=== PATIENT | male | born 1960 | race Caucasian/White ===

== ENCOUNTER 2016-09-01 07:55 | Emergency (ER) | payer MEDICARE, MEDICAID ==
[2016-09-01 08:08] VITALS: TEMP 97
[2016-09-01] MEDS ORDERED: HYDROmorphone HCL INJ 2 MG/ML VIAL IV ONE ×2 (08:14→09:17)
[2016-09-01] MEDS ORDERED: SODIUM CHLORIDE 0.9% 1000ML 1,000 ML IVS ONE (08:14)
[2016-09-01] MEDS ORDERED: ONDANSETRON INJ 4 MG/2 ML VIAL IV ONE (08:14)
--- NOTE | 2016-09-01 08:17 | ED.PDOC ---
History of Present Illness - General Chief Complaint: Abdominal Pain Stated Complaint: abdominal pain,vomiting Time Seen by Provider: 09/01/16 08:10 Information Source: patient, RN notes reviewed, Vital Signs reviewed, family Exam Limitations: no limitations - History of Present Illness Initial Comments: Patient started with sharp, stabbing abd pain 2 days ago. Last night started with nausea and vomiting. He has a history of pancreatitis and reports this feels the exact same. Abdominal Pain Onset Location: epigastric Pain Radiation: back Quality: severe, sharpness, steady, stabbing Timing/Duration: days - 2 Improving Factors: nothing Worsening Factors: eating Associated Symptoms: nausea/vomiting Review of Systems - Review of Systems Constitutional: Denies: chills, diaphoresis, fever, malaise, weakness EENTM: States: no symptoms reported Respiratory: States: no symptoms reported. Denies: short of breath Cardiology: States: no symptoms reported. Denies: chest pain, palpitations, syncope Gastrointestinal/Abdominal: States: see HPI, abdominal pain, nausea, vomiting. Denies: constipation, diarrhea Genitourinary: States: no symptoms reported Musculoskeletal: States: no symptoms reported Skin: States: no symptoms reported Neurological: States: no symptoms reported Endocrine: States: no symptoms reported Hematologic/Lymphatic: States: no symptoms reported Past Medical History (General) - Patient Medical History Hx Seizures: No Hx Stroke: No Hx Dementia: No Hx Asthma: No Hx of COPD: Yes Hx Cardiac Disorders: Yes Hx Congestive Heart Failure: Yes Hx Pacemaker: No Hx Hypertension: Yes Hx Thyroid Disease: No Hx Diabetes: Yes Hx Gastroesophageal Reflux: Yes Hx Renal Disease: No Hx Cancer: No Hx of HIV: No Hx Hepatitis C: Yes Hx MRSA: No MRSA Source:: Wound - Vaccination History Hx Tetanus, Diphtheria Vaccination: Yes Hx Influenza Vaccination: Yes Hx Pneumococcal Vaccination: Yes - Social History Hx Tobacco Use: Yes Hx Chewing Tobacco Use: No Hx Alcohol Use: No Hx Substance Use: No Hx Substance Use Treatment: No Hx Depression: No Hx Physical Abuse: No Hx Emotional Abuse: No Hx Suspected Abuse: No - Female History Patient : No Family Medical History - Family History Mother Family History: Unknown Living Status: Age at (years of age): 49 Hx Family Hypertension: Yes Hx Cardiac Disease: Yes Physical Exam - Physical Exam General Appearance: Alert, No apparent distress, Well Developed, Well Groomed, Well Nourished Eyes, Ears, Nose, Throat Exam: other - dry mucous membranes Neck: non-tender, full range of motion, supple, normal inspection Respiratory: chest non-tender, lungs clear, normal breath sounds, no respiratory distress, no accessory muscle use Cardiovascular/Chest: normal peripheral pulses, regular rate, rhythm, no edema, no gallop, no JVD, no murmur Peripheral Pulses: 2+ Gastrointestinal/Abdominal: abnormal bowel sounds - hyperactive, distended, guarding, tenderness Extremity: normal range of motion, non-tender, normal inspection, no pedal edema Neurologic: no motor/sensory deficits, alert, normal mood/affect, oriented x 3 Skin Exam: normal color, warm/dry Lymphatic: no adenopathy Progress - Progress Progress: 09/01/16 09:03 Patient reports pain has improved slightly. 7/10 Labs are fairly unremarkable. Lipase is minimally elevated @ 84. Will get CT scan of abd. 09/01/16 10:06 Patient is now sleeping. Discussed lab and CT results with . Explained that there is no signs of acute pancreatitis. No evidence of diverticulitis. There are some mildly dilated loops of sm bowel but no sign of obstruction. Will d/c home with anti-nausea medication. Recommended clear liquid diet for at least 24 hours. - Results/Orders Results/Orders: Laboratory Tests 09/01/16 08:11 WBC 12.4 H RBC 5.27 Hgb 16.1 Hct 48.2 MCV 91.4 MCH 30.5 MCHC 33.5 RDW 14.1 Plt Count 186 MPV 10.5 H Absolute Neuts (auto) 8.30 H Absolute Lymphs (auto) 2.50 Absolute Monos (auto) 1.20 H Absolute Eos (auto) 0.30 Absolute Basos (auto) 0.10 Neutrophils % 67.1 Lymphocytes % 19.7 L Monocytes % 9.7 H Eosinophils % 2.7 Basophils % 0.8 Sodium 133 L Potassium 3.9 Chloride 98 L Carbon Dioxide 26 Anion Gap 12.9 BUN 17 Creatinine 0.84 BUN/Creatinine Ratio 20.2 H Random Glucose 263 H Serum Osmolality 277.1 Calcium 9.3 Total Bilirubin 0.5 AST 28 ALT 28 Alkaline Phosphatase 89 Serum Total Protein 7.4 Albumin 4.2 Globulin 3.2 Albumin/Globulin Ratio 1.3 Amylase 81 Lipase 84 H - EKG/XRAY/CT CT Ordered: Yes - No acute findings on Abd/pelvis CT per radiology Departure - Departure Clinical Impression: Abdominal pain, Gastroenteritis Time of Disposition: 10:08 Disposition: Discharge to Home or Self Care Condition: Good Departure Forms: ED Discharge - Pt. Copy, Patient Portal Self Enrollment Instructions: DI for Abdominal Pain-Adult Diet: other - Clear liquid diet for at least 24 hours. Activity: increase activity as tolerated Referrals: David Alexis MD [Primary Care Provider] - 1-2 Days Prescriptions: Ondansetron [Zofran Odt] 4 mg PO Q4HR PRN #20 tab PRN Reason: Nausea/Vomiting Home Medications: Ambulatory Orders Amitriptyline HCl [Elavil] 100 mg PO BEDTIME 06/17/14 Citalopram Hydrobromide [Celexa] 40 mg PO QAM 06/17/14 Furosemide [Lasix Tab] 40 mg PO DAILY PRN 06/17/14 Lisinopril 40 mg PO BEDTIME 06/17/14 Metoprolol Succinate [Toprol Xl] 50 mg PO BEDTIME 06/17/14 Zolpidem Tartrate [Ambien] 10 mg PO BEDTIME 06/17/14 Insulin Glargine [Toujeo Solostar] 85 unit SC DAILY 11/04/15 Ondansetron [Zofran Odt] 4 mg PO Q6H PRN #5 tab 11/04/15 Omeprazole Magnesium [Prilosec Otc] 20 mg PO DAILY #20 tab 01/05/16 Insulin Lispro (Human) [Humalog] 30 unit SC .TIDAC 09/01/16 Ondansetron [Zofran Odt] 4 mg PO Q4HR PRN #20 tab 09/01/16 Pravastatin Sodium [Pravachol] 40 mg PO BEDTIME 09/01/16
--- NOTE | 2016-09-01 09:51 | CT ---
EXAM DESCRIPTION: CT ABDOMEN PELVIS WITH IV CONTRAST CLINICAL HISTORY: abd pain with hx of pancreatitis. Mid abdominal pain COMPARISON: May 20, 2016 TECHNIQUE: Post-contrast CT images of the abdomen and pelvis are obtained. CT scan done according to ALARA (As Low As Reasonably Achievable). FINDINGS: Visualized lung bases show no acute findings. The liver is enlarged. The right lobe measures 20.1 cm AP at the right midclavicular line. The liver is heterogeneous and decreased attenuation compared to the spleen without focal mass. The spleen, pancreas, adrenal glands, and gallbladder are unremarkable. No peripancreatic fluid collections or inflammatory changes are seen. Mild atherosclerotic disease is seen. Kidneys show no abnormal calcifications. No ureteral obstruction. Urinary bladder is unremarkable. Prostate calcifications are seen. Postsurgical changes from appendectomy are seen. There are some mildly dilated fluid filled loops of small bowel in the left central abdomen. No definite transition point is seen. No bowel wall thickening or surrounding inflammatory changes are identified. Scattered diverticuli of the mainly descending to sigmoid colon are seen without associated inflammatory changes or fluid collections. No pathologically enlarged abdominal or retroperitoneal lymphadenopathy is seen. Stimulator pack in the right gluteal region is seen with probable dorsal column stimulator entering the spinal canal in the lower thoracic region. Probable remote anterior wedge compression fracture deformity of T12 is seen. Interbody cages are noted at T12-L1 and L1-2 with evidence of posterior fusion from T12 through L2. IMPRESSION: No acute findings on CT of the abdomen and pelvis. Nonspecific mildly dilated loops of small bowel in the central abdomen are seen. This could represent mild ileus. No transition point to suggest obstruction is seen. Colon diverticulosis without CT evidence of diverticulitis. No CT evidence of acute pancreatitis. Hepatomegaly with evidence of diffuse fatty infiltration of the liver. Electronically signed by: Son Dobbs MD 09/01/2016 09:50
[2016-09-01 10:38] VITALS: BP 138/90; O2SAT 94
== END 2016-09-01 10:30 | disposition home or self-care (01) ==
LOC: ER 07:55
DX: K52.9 Noninfective gastroenteritis and colitis, unspecified (principal); I11.0 Hypertensive heart disease with heart failure; I50.9 Heart failure, unspecified; J44.9 Chronic obstructive pulmonary disease, unspecified; E11.9 Type 2 diabetes mellitus without complications; B19.20 Unspecified viral hepatitis C without hepatic coma; Z87.891 Personal history of nicotine dependence; Z79.4 Long term (current) use of insulin; Z79.899 Other long term (current) drug therapy
CPT/HCPCS: 74177; 80053; 82150; 83690; 85025; J1170; J2405; J7030

== ENCOUNTER → 2016-09-20 | Outpatient (CLI) | payer MEDICARE, MEDICAID ==
--- NOTE | 2016-09-20 09:44 | RAD ---
EXAM DESCRIPTION: XR SHOULDER 2 OR MORE VIEWS CLINICAL HISTORY: 56 y/o ,M, PAIN IN RIGHT SHOULDER COMPARISON: None. IMPRESSION: Likely calcific tendinitis of the rotator cuff. The glenohumeral joint and acromioclavicular joints appear unremarkable. No fracture noted. Electronically signed by: Hans Leger MD 09/20/2016 09:43
== END | disposition home or self-care (01) ==
LOC: RAD 08:05
PROVIDERS: ATTEND Orthopaedic Surgery
DX: M25.511 Pain in right shoulder (principal)

== ENCOUNTER → 2016-10-12 | Outpatient (CLI) | payer MEDICARE, MEDICAID ==
--- NOTE | 2016-10-12 11:50 | RAD ---
EXAM DESCRIPTION: Arthrogram Shoulder Right CLINICAL HISTORY: 56 years Male, UNSPECIFIED ROTATOR CUFF TEAR OR RUPTURE OF RT SHOULDER COMPARISON: None. FINDINGS: The risks, benefits and alternatives of a shoulder arthrogram were discussed with the patient including risks of pain, bleeding, infection and nondiagnostic result. The patient was given an opportunity to ask questions about the procedure, its risks, benefits and alternatives. He stated he understood these things and wished to proceed. The patient denied any known relevant drug allergies. A time-out was conducted prior to the procedure. The patient was placed in the supine position on the fluoroscopy table and a suitable access site anterior to the shoulder joint was identified and marked on the patient's skin surface. The skin was prepped and draped in the usual sterile manner. Approximately 4 cc of 1% lidocaine were used for local anesthesia. Using real-time fluoroscopic guidance, a 22 gauge needle was placed into the right shoulder joint space and approximately 15 cc of a solution containing dilute iodinated contrast were injected into the shoulder joint. The needle was withdrawn, and the shoulder was exercised. No rotator cuff tear or other fluoroscopically apparent right shoulder abnormality is seen. The patient was sent to the CT suite for completion of this exam. The patient tolerated the procedure well, and there were no postprocedure complications. IMPRESSION: Uncomplicated fluoroscopic guided right shoulder arthrogram. Please see separate report from the CT portion of this exam for more detailed discussion of findings. Electronically signed by: Darrion Peng MD 10/12/2016 11:50 AM NIGHT CLERK AUDITOR
--- NOTE | 2016-10-12 16:26 | CT ---
EXAM DESCRIPTION: Upper Extremity CLINICAL HISTORY: 56 years Male, ROTATOR CUFF TEAR OR RUPTURE OF RT SHOULDER COMPARISON: None. TECHNIQUE: CT arthrogram of the right shoulder was performed with intra-articular contrast FINDINGS: The right humeral head and neck are intact, and the glenohumeral joint is anatomically aligned. There are degenerative changes in the right AC joint including joint space narrowing and subcortical cyst formation with minimal undersurface spurring. Subcortical cyst formation in the superior-lateral aspect of the right humeral head is also likely of degenerative origin and suggests the possibility of impingement. No full or partial-thickness rotator cuff tear is identified. Contrast extends into the superior labrum posterior to midline consistent with labral tear extending only a short distance in the AP direction. No contrast is seen in the biceps tendon sheath, but the biceps tendon and bicipital labral anchor are at least partially intact. There is no axillary adenopathy. Mild emphysematous changes are noted in the right lung apex. IMPRESSION: SLAP type labral tear, but no rotator cuff tear. Moderate degenerative changes in the right AC joint with only minimal undersurface spurring. Emphysema. Electronically signed by: Darrion Peng MD 10/12/2016 4:25 PM [employer]ER [employer]
== END | disposition home or self-care (01) ==
LOC: RAD 07:49
PROVIDERS: ATTEND Orthopaedic Surgery
DX: M75.101 Unspecified rotator cuff tear or rupture of right shoulder, not specified as traumatic (principal)

== ENCOUNTER → 2016-10-17 | Outpatient (CLI) | payer MEDICARE, MEDICAID | LOC: SL 20:30 | PROVIDERS: ATTEND Family Medicine | DX: G47.33 Obstructive sleep apnea (adult) (pediatric) (principal); G47.10 Hypersomnia, unspecified ==

== ENCOUNTER 2016-11-10 09:15 | Inpatient (IN) | payer MEDICARE, MEDICAID ==
--- NOTE | 2016-11-10 09:20 | HP ---
SUPERVISING PHYSICIAN: David Alexis M.D. CHIEF COMPLAINT: Shortness of breath. HISTORY OF PRESENT ILLNESS: Mr. Alexander is a 56 year-old male patient of Dr. Alexis that was seen this past Monday in the clinic for acute exacerbation of chronic obstructive pulmonary disease. He was having symptoms to include a cough, worsening shortness of breath, wheezing and chest congestion , and was started on Levaquin and given a Prednisone tapering dose. He presented back to the clinic today for followup noting his symptoms had significantly worsened and he was now having significant difficulty with breathing, and a more productive cough. Given the fact that the patient has a significant history of chronic obstructive pulmonary disease having failed to respond to outpatient treatment plan for acute exacerbation of his chronic obstructive pulmonary disease, the patient is to be admitted today for further continued evaluation and treatment. He was admitted to the Medical/Surgical floor in stable condition. PAST MEDICAL HISTORY: 1. Chronic obstructive pulmonary disease. 2. Type 2 diabetes on insulin. 3. Fractures of T12, L1 and L2 after a fall. 4. Gastroesophageal reflux disease. 5. Hyperlipidemia. 6. Hypertension. 7. Diverticulosis. 8. History of recurrent pancreatitis in the past being hospitalized last in . 9. History of hepatitis C. 10. Chronic low back pain. 11. Peripheral neuropathies. 12. History of left shoulder infection in 2007. PAST SURGICAL HISTORY: 1. Hernia repair bilateral inguinal. 2. Spinal surgery of lumbar region. 3. Left orchiopexy. 4. Right rotator cuff repair. 5. Left shoulder incision and drainage of an abscess. CURRENT MEDICATIONS: 1. Insulin, Humalog 30 units subcue a.c. 2. Toujeo SoloStar 85 units daily. 3. Zofran 4 mg every 6 hours p.r.n. 4. Ambien 10 mg at bedtime. 5. Pravachol 40 mg at bedtime. 6. Prilosec 20 mg daily. 7. Toprol XL 50 mg at bedtime. 8. Lisinopril 40 mg at bedtime. 9. Lasix 40 mg p.r.n. 10. Celexa 40 mg every AM. 11. Elavil 100 mg at bedtime. ALLERGIES: MORPHINE. FAMILY HISTORY: Unremarkable. SOCIAL HISTORY: The patient is disabled and . He lives in [place], [place]. He is a current smoker and smokes about a pack to half pack a day. He denies any alcohol or recent illicit drug use. He does have a history of past amphetamines, barbiturates, cocaine and marijuana use. REVIEW OF SYSTEMS: CONSTITUTIONAL: Denies any weight change, fever, fatigue. HEENT: Denies sore throat, ear pain, sinus symptoms. RESPIRATORY: Positive for productive cough that is worsening since treatment started. He also has notable wheezing and shortness of breath as noted in the History of Present Illness. CARDIOVASCULAR: Denies any chest pain, tachycardia, palpitations or syncopal episodes. GASTROINTESTINAL: Denies any abdominal pains, rectal bleeding, constipation or diarrhea. GENITOURINARY: Denies any dysuria, hematuria, polyuria and is currently without any other significant symptoms. MUSCULOSKELETAL: No notable arthralgias or myalgias. Positive history for back pain and surgery. NEUROLOGIC: No reported headaches, dizziness or syncopal episodes. PHYSICAL EXAMINATION: VITAL SIGNS: Temperature on admission to the Medical/Surgical floor 97.9, pulse 90, blood pressure 130/84, respirations listed were 26, satting 93% on room air. Admission weight 100.6 kg. GENERAL: The patient appears to be in some mild distress with pursed lip breathing, tripod positioning with some notable respiratory accessory muscles utilized HEENT: Tympanic membranes are clear bilaterally. Oropharynx in pink and moist without any lesions. NECK: No jugular venous distention. CHEST: Lung sounds are diminished throughout with no obvious rhonchi or rales, just very faint wheezing towards the upper apices. CARDIOVASCULAR: Regular rate and rhythm without any appreciable murmurs, gallops, or rubs. ABDOMEN: Obese but soft, non-tender. Positive bowel sounds. EXTREMITIES: No clubbing, cyanosis or edema. NEUROLOGIC: He is alert and oriented times three. Cranial nerves II-XII are grossly intact. Facial features are symmetrical. Extraocular movements are within normal limits. There is no notable nystagmus. There are no focal or lateralizing neuromotor deficits noted. LABORATORY: White count on admission was 12.7, hemoglobin 15.9, hematocrit 47.8. Differential shows to be without a left shift. Coagulation studies show normal PT and PTT. Blood gas analysis showed pH of 7.45 with bicarb 25.2, PO2 was 64, PCO2 was 37. Satting 94% on room air. Carboxyhemoglobin was 4.6, oxyhemoglobin percentage was 90.5. Chemistries showed sodium 131 but corrected for glucose of 409 to 135, potassium 4.3, BUN 24, creatinine 0.96. Magnesium 1.7. Liver functions all showed to be within normal limits. Troponin was less than 0.02. CPK was normal at 107. Urinalysis showed 500 glucose, trace of blood, otherwise all within normal limits in regards to other indices tested. MICROBIOLOGY: Sputum culture is pending. MRSA surveillance culture is pending. Anaerobic blood cultures times 2 are pending. RADIOLOGY: Chest x-ray performed at [facility] prior to admission showed no obvious consolidative processes, just COPD changes pending radiology interpretation. ASSESSMENT: 1. Acute exacerbation of chronic obstructive pulmonary disease having failed to respond to outpatient treatment plan that included corticosteroids and Levaquin. 2. Moderate hypoxemia as noted on ABG with PaO2 of 64. 3. History of diverticular disease, stable. 4. Diabetes mellitus type 2 poorly controlled secondary to previous corticosteroid administration. 5. Hypertension. 6. Chronic hepatitis C. PLAN: The patient is admitted to the Medical/Surgical floor for further treatment and evaluation with concerns for acute exacerbation of his chronic obstructive pulmonary disease having failed to respond to outpatient treatment plan. Will go ahead and start the patient on BiPAP given that he does have significant hypoxemia and some difficulty with respiratory effort. He will be started on bronchodilator treatments to include DuoNeb q.i.d. as well as p.r.n. and bronchial hygiene. Will also support the patient with BiPAP as needed as tolerated and provide Xanax as needed for any anxiety. Will continue with Levaquin parenterally and await a sputum culture. He will be started on Solu- Medrol initially 125 mg to be continued every 8 hours at 60 mg times 3 with anticipation of tapering to a p.o. Prednisone. Anticipate length of stay to be 2 to 3 days. Until then, will continue to monitor the patient closely and treat appropriately. #[id number] [facility]
[2016-11-10] MEDS ORDERED: SODIUM CHLORIDE 0.9% (FLUSH) 10 ML SYG IV PRN (09:33)
[2016-11-10] MEDS ORDERED: IPRATROPIUM/ALBUTEROL 3 ML VIAL NEB ONE (09:41)
[2016-11-10] MEDS ORDERED: DEXTROSE 50% 25 GM/50 ML SYG IV PRN (09:44)
[2016-11-10] MEDS ORDERED: GLUCAGON INJ 1 MG VIAL SUBCU PRN (09:44)
[2016-11-10] MEDS ORDERED: ALBUTEROL SULFATE 2.5 MG/3 ML VIAL NEB PRN (09:44)
[2016-11-10] MEDS: IPRATROPIUM/ALBUTEROL 3 ML VIAL INH SCH ×4 (09:50→20:40)
[2016-11-10] MEDS ORDERED: methylPREDNISolone SODIUM SUC 125 MG/2 ML VIAL IV ONE (09:51)
[2016-11-10] MEDS ORDERED: PROMETHAZINE W/CODEINE SYR 5 ML UD PO PRN (09:52)
[2016-11-10] MEDS ORDERED: ACETAMINOPHEN 325 MG TAB PO PRN (09:56)
[2016-11-10] MEDS: ALPRAZolam 0.25 MG TAB PO PRN ×2 (10:34→17:10)
[2016-11-10] MEDS: IV SET AND CAP CHANGE INJ INJ SCH (10:35)
[2016-11-10] MEDS: guaiFENesin ER TAB 600 MG TAB PO SCH ×2 (10:36→20:45)
[2016-11-10] MEDS ORDERED: levoFLOXacin 500MG IV 100 ML IVPB ONE (10:41)
[2016-11-10] MEDS: levoFLOXacin 500MG IV 500 MG in PREMIX BAG 1 BAG IVPB SCH (10:45)
[2016-11-10] MEDS ORDERED: MAGNESIUM SULFATE PREMIX 2GM 2 GM in PREMIX BAG 1 BAG IVPB ONE (10:46)
[2016-11-10] MEDS: INSULIN LISPRO 100 UNITS/ML PEN SUBCU SCH ×3 (10:53→20:59)
[2016-11-10] MEDS ORDERED: SODIUM CHLORIDE 0.9% 1000ML 1,000 ML IVS ONE (10:54)
[2016-11-10] MEDS ORDERED: INSULIN LISPRO 100 UNITS/ML PEN SUBCU ONE (11:00)
[2016-11-10] MEDS ORDERED: INSULIN LISPRO 100 UNITS/ML PEN SUBCU SCH (11:30)
[2016-11-10] MEDS ORDERED: MAGNESIUM SULFATE PREMIX 2GM 50 ML IVPB ONE (12:04)
[2016-11-10] MEDS ORDERED: SODIUM CHLORIDE 0.9% 1000ML 1,000 ML ONE (12:55)
[2016-11-10] MEDS: KCL 20MEQ/0.45% NS 1,000 ML IVS PRN ×2 (14:24→20:49)
--- NOTE | 2016-11-10 19:35 | PCM.CORE ---
Physician DVT/VTE - Nurse DVT Assessment & Total Each Risk Factor Represents 1 Point: Age 41-60, Medical PT at Bed Rest, Hx of smoking past year Each Risk Factor is 1 Point: Obesity (BMI >25), Serious Lung disease (pnemonia < 1month, COPD, emphysema,etc) DVT Assessment Score: 5 - 5 or more Very High Risk Treatments: Early Ambulation *, Sequential Compression Device Pharmacological: Enoxaparin 40mg SQ Daily
[2016-11-10] MEDS ORDERED: PANTOPRAZOLE SODIUM IV 40 MG VIAL IV SCH (20:00)
[2016-11-10] MEDS ORDERED: ENOXAPARIN SODIUM 40 MG/0.4 ML SYG SUBCU SCH (20:00)
[2016-11-10] MEDS ORDERED: SODIUM CHLORIDE 0.9% 10 ML VIAL ONE (20:08)
[2016-11-10] MEDS: LISINOPRIL 10 MG TAB PO SCH (20:44)
[2016-11-10] MEDS: AMITRIPTYLINE HCL 25 MG TAB PO SCH (20:44)
[2016-11-10] MEDS: PRAVASTATIN SODIUM 20 MG TAB PO SCH (20:45)
[2016-11-10] MEDS: METOPROLOL SUCCINATE XL 50 MG TAB PO SCH (20:45)
[2016-11-10] MEDS: methylPREDNISolone SODIUM SUC 125 MG/2 ML VIAL IV SCH (20:45)
[2016-11-10] MEDS: ZOLPIDEM TARTRATE 10 MG TAB PO SCH (20:46)
[2016-11-11] MEDS: KCL 20MEQ/0.45% NS 1,000 ML IVS PRN (06:28)
--- NOTE | 2016-11-11 06:49 | RAD ---
Clinical History : Pneumonia , MAIN Exam : PA and lateral views of the chest 11/11/2016 7:00 AM CDT Comparisons : Portable AP view of the chest January 02, 2016 Findings : The lungs are clear without focal consolidation or pleural effusion. The heart is normal in size. The mediastinal contours are normal in appearance. The thoracic spine is age appropriate. The shoulders are unremarkable. Limited evaluation of the upper abdomen demonstrates no gross abnormalities. Impression: No acute cardiopulmonary disease (stable appearing chest). Electronically signed by: Temo Garcia MD 11/11/2016 6:48 AM CDT
[2016-11-11] MEDS ORDERED: CITALOPRAM HBR 20 MG TAB ONE (07:42)
[2016-11-11] MEDS ORDERED: levoFLOXacin 500MG IV 100 ML IVPB ONE (07:42)
[2016-11-11] MEDS: IPRATROPIUM/ALBUTEROL 3 ML VIAL INH SCH ×4 (08:07→20:46)
[2016-11-11] MEDS: INSULIN LISPRO 100 UNITS/ML PEN SUBCU SCH ×7 (08:27→22:00)
[2016-11-11] MEDS: CITALOPRAM HBR 20 MG TAB PO SCH (08:32)
[2016-11-11] MEDS: guaiFENesin ER TAB 600 MG TAB PO SCH ×2 (08:32→22:06)
[2016-11-11] MEDS: methylPREDNISolone SODIUM SUC 125 MG/2 ML VIAL IV SCH (08:34)
[2016-11-11] MEDS: ALPRAZolam 0.25 MG TAB PO PRN ×3 (08:48→22:06)
[2016-11-11] MEDS: INSULIN GLARGINE SC SCH (09:50)
[2016-11-11] MEDS: levoFLOXacin 500MG IV 500 MG in PREMIX BAG 1 BAG IVPB SCH (10:04)
[2016-11-11] MEDS: SODIUM CHLORIDE 0.9% (FLUSH) 10 ML SYG IV SCH ×2 (10:05→22:08)
[2016-11-11] MEDS: BIFIDOBACTERIUM INFANTIS 4 MG CAP PO SCH (14:07)
[2016-11-11] MEDS: HYDROcodone 5MG/APAP 325MG 1 EA TAB PO PRN ×2 (14:13→22:07)
[2016-11-11] MEDS ORDERED: SODIUM CHLORIDE 0.9% 10 ML VIAL ONE (19:43)
[2016-11-11] MEDS ORDERED: PANTOPRAZOLE SODIUM IV 40 MG VIAL ONE (19:43)
--- NOTE | 2016-11-11 19:49 | PN ---
DATE: 11/11/16 SUPERVISING PHYSICIAN: Beau Weston M.D. SUBJECTIVE: The patient is still utilizing BiPAP periodically throughout the day. He remains afebrile. He says his breathing efforts are much better than previous days. He continues with a cough and has had some diarrhea since yesterday. OBJECTIVE: VITAL SIGNS: T max 98.1, pulse 91, blood pressure 127/80, respirations 20, O2 sat 96% on nasal cannula at 2 liters. I's and O's show a negative balance of 611 with 3564 in, 4175 out. He has had 5 bowel movements. Weight 102.1 kg. GENERAL: The patient is in no acute distress. He is utilizing BiPAP. CHEST: Lung sounds are much better aeration today compared to previous. There is no wheezing. Still remains somewhat diminished towards the bases. HEART: Regular rate and rhythm. ABDOMEN: Obese but soft, non-tender. Positive bowel sounds. EXTREMITIES: No clubbing, cyanosis or edema. NEUROLOGIC : He is alert and oriented times three. LABORATORY: White count 14.9, hemoglobin 16.0, hematocrit 49.0, platelet count 204,000. Differential today shows a left shift. Chemistries today show sodium 132, potassium 5.2, BUN 20, creatinine 0.79. Glucoses have been elevated since he has been started on corticosteroids with a maximum of 431 down to 285, calcium 9.1, magnesium 2.1. Blood cultures remain negative at 24 hours. MRSA surveillance culture shows no growth in 24 hours. Sputum culture showed normal jenniffer at 24 hours. He does have a stool culture and Clostridium Difficile toxin on stool is pending. RADIOLOGY: Chest x-ray today per radiology interpretation showed no acute cardiopulmonary disease, stable-appearing chest. ASSESSMENT: 1. Acute exacerbation of chronic obstructive pulmonary disease having failed to respond to outpatient treatment plan that included corticosteroids and Levaquin. 2. Moderate hypoxemia as noted on ABG with PaO2 of 64 requiring BiPAP. 3. History of diverticular disease, stable. 4. Diabetes mellitus type 2 poorly controlled secondary to previous corticosteroid administration and continued Solu-Medrol through initial admission. 5. Hypertension. 6. Chronic hepatitis C. PLAN: The patient is improving and requiring BiPAP less, and he feels much better than previous to admission. He continues with aggressive pulmonary hygiene and DuoNeb treatments. Will continue to work to get the patient off BiPAP and plan to repeat her laboratory studies in the morning to include a CBC and BMP as well as an ABG. Will await final sputum cultures and continue with parenteral antibiotics to include Levaquin. He did get a loading dose of corticosteroids with Solu-Medrol on admission. He no longer is having wheezing. I have tapered off his dose and will plan to hold his PM dose today, and monitor closely. His glucoses have been elevated secondary to the steroids and will closely monitor this with his sliding scale along with insulin a.c. and h.s. Possible discharge tomorrow or Monday. Until then, will continue to monitor the patient closely and treat appropriately. #[id number] [facility]
[2016-11-11] MEDS: PANTOPRAZOLE SODIUM IV 40 MG VIAL IV SCH (22:03)
[2016-11-11] MEDS: METOPROLOL SUCCINATE XL 50 MG TAB PO SCH (22:06)
[2016-11-11] MEDS: LISINOPRIL 10 MG TAB PO SCH (22:06)
[2016-11-11] MEDS: PRAVASTATIN SODIUM 20 MG TAB PO SCH (22:06)
[2016-11-11] MEDS: ZOLPIDEM TARTRATE 10 MG TAB PO SCH (22:06)
[2016-11-11] MEDS: AMITRIPTYLINE HCL 25 MG TAB PO SCH (22:06)
[2016-11-11] MEDS: ENOXAPARIN SODIUM 40 MG/0.4 ML SYG SUBCU SCH (22:09)
[2016-11-12] MEDS: ONDANSETRON INJ 4 MG/2 ML VIAL IV PRN ×2 (02:54→09:39)
[2016-11-12] MEDS: ALPRAZolam 0.25 MG TAB PO PRN ×4 (05:27→23:51)
[2016-11-12] MEDS: INSULIN LISPRO 100 UNITS/ML PEN SUBCU SCH ×6 (07:48→21:30)
[2016-11-12] MEDS: IPRATROPIUM/ALBUTEROL 3 ML VIAL INH SCH ×4 (08:27→20:35)
[2016-11-12] MEDS ORDERED: levoFLOXacin 500MG IV 100 ML IVPB ONE (08:49)
[2016-11-12] MEDS: INSULIN GLARGINE SC SCH (09:31)
[2016-11-12] MEDS: levoFLOXacin 500MG IV 500 MG in PREMIX BAG 1 BAG IVPB SCH (09:32)
[2016-11-12] MEDS: guaiFENesin ER TAB 600 MG TAB PO SCH ×2 (09:32→21:30)
[2016-11-12] MEDS: SODIUM CHLORIDE 0.9% (FLUSH) 10 ML SYG IV SCH ×2 (09:32→21:31)
[2016-11-12] MEDS: CITALOPRAM HBR 20 MG TAB PO SCH (09:32)
[2016-11-12] MEDS: BIFIDOBACTERIUM INFANTIS 4 MG CAP PO SCH (09:35)
--- NOTE | 2016-11-12 14:51 | CT ---
Procedure: CT ABDOMEN PELVIS WITH IV CONTRAST Exam Date: 11/12/2016 Ordering Provider: Yakov Arevalo Clinical Indication: LLQ pain with persistent diarrhea Comparison: 09/01/2016 TECHNIQUE: 5 mm images were taken through the abdomen and pelvis after the administration of nonionic intravenous contrast material. Oral contrast was not administered. Coronal and sagittal reformatted images were generated. This exam was performed according to our departmental dose optimization program which includes use of automated exposure control, adjustment of the mA and/or kV according to patient size and/or use of iterative reconstruction technique. FINDINGS: Lower chest: Scarring in the dependent lower lobes. Abdomen: Liver and biliary system: No liver lesions. No biliary ductal dilatation. No calcified gallstones. Spleen: Unremarkable Pancreas: Unremarkable Adrenal glands: Unremarkable Kidneys: No suspicious lesions or hydronephrosis in either kidney. Lymph nodes: No lymphadenopathy by CT size criteria. Retroperitoneum, abdominal wall, peritoneal cavity: No ascites. No free intraperitoneal air. Generator pack in the posterior right superficial soft tissues. Vessels: No abdominal aortic aneurysm. Pelvis: Lymph nodes: No lymphadenopathy Bowel: No bowel obstruction. Colonic diverticulosis without evidence of diverticulitis. Prior appendectomy. No bowel wall thickening. Bladder: Significantly distended, otherwise unremarkable. Pelvic organs: Prostate calcifications. Bones: Nonacute. Remote anterior wedge compression deformity of the T12 vertebral body. Interbody cages at T12-L1 and L1-L2. IMPRESSION: 1. No acute abnormalities in the abdomen or pelvis. 2. Urinary bladder is significantly distended, otherwise unremarkable. 3. Colonic diverticulosis without evidence of diverticulitis. Electronically signed by: Chaim Saini MD 11/12/2016 2:50 PM CDT
--- NOTE | 2016-11-12 15:31 | PN ---
DATE: 11/12/16 SUPERVISING PHYSICIAN: Beau Weston M.D. SUBJECTIVE: The patient is doing better in regards to his chronic obstructive pulmonary disease exacerbation and is not using BiPAP as much. He did have a rough night having some episodes of nausea, but never had any actual emesis, and also noted that he is having some significant amount of diarrhea along with some left lower quadrant abdominal discomfort. He does remain afebrile. OBJECTIVE: VITAL SIGNS: T max 97.9, pulse 91, blood pressure 132/82, respirations 20, O2 sat 93% on room air. I's and O's show a positive balance of 440 with 1940 in, 1500 out. He has had well over 5 bowel movements. CHEST: Lungs are much better aerated today, just remain slightly diminished towards the bases. There is no wheezing noted or rhonchi. HEART: Regular rate and rhythm. ABDOMEN: Obese, soft with some mild tenderness noted to the left mid to lower quadrant with no rebound tenderness. Bowel sounds are active. EXTREMITIES: No clubbing, cyanosis or edema. NEUROLOGIC: He is alert and oriented times three. LABORATORY: White count continues to increase possibly secondary to corticosteroid administration in the past several days. Hemoglobin and hematocrit show 15.1 and 46.2, platelet count remains within normal limits at 189,000. Differential today does show improvement. Chemistries show normal electrolytes with potassium 4.0, BUN 19, creatinine 0.74. Blood sugars have improved ranging from 116 to 297, calcium 8.9. Liver function this morning showed normal as well as normal amylase and lipase. MICROBIOLOGY: Stool culture showed no enteric pathogens at 24 hours. He did have 1 Clostridium Difficile A and B that was negative. Sputum culture showed normal jenniffer at 48 hours. MRSA surveillance culture showed no growth at 48 hours and 2 blood cultures remain negative at 48 hours. RADIOLOGY: CT of the abdomen with contrast is pending. ASSESSMENT: 1. Acute exacerbation of chronic obstructive pulmonary disease having failed to respond to outpatient treatment plan that included corticosteroids and Levaquin. 2. Moderate hypoxemia as noted on ABG at admission with PO2 of 64 requiring BiPAP showing improvement now able to maintain O2 saturations on nasal cannula. 3. History of diverticular disease with the patient having multiple episodes of diarrhea since starting antibiotics and complaining of some lower left quadrant pain, currently remains afebrile with CT of the abdomen pending. Possibly complications from underlying Clostridium Difficile infection as he has had some nausea versus acute diverticulitis. 4. Diabetes mellitus type 2 poorly controlled having been previously on corticosteroid administration with Solu-Medrol on admission now showing improvement with aggressive sliding scale and short-acting insulin coverage. 5. Hypertension. 6. Chronic hepatitis C. 7. Leukocytosis showing increasing daily with concern for possible Clostridium Difficile infection versus diverticulitis versus demarginalization from previous corticosteroid administration. PLAN: The patient, in regards to the COPD exacerbation, is showing improvement daily, although his white count remains elevated which is possibly secondary to his previous administration of corticosteroids, however cannot completely rule out the possibility of a flare-up of diverticulitis or Clostridium Difficile infection. Will await further Clostridium Difficile studies as the first one was negative. As well, get a CT of the abdomen and pelvis with contrast. As he is nauseated, will make him NPO until we have results from the CT scan and provide Zofran for nausea as needed. He will remain off steroids as he is showing improvement. Will continue with antibiotic coverage to include Levaquin. His blood sugars are better controlled within the last 24 hours as he remains on short-acting as well as long-acting Toujeo. Will continue to monitor the patient closely and hope to be able to discharge the patient tomorrow pending further studies in regards to the ongoing diarrhea. Until then , will monitor the patient closely and treat appropriately. #[id number] [facility]
[2016-11-12] MEDS: ENOXAPARIN SODIUM 40 MG/0.4 ML SYG SUBCU SCH (21:29)
[2016-11-12] MEDS: METOPROLOL SUCCINATE XL 50 MG TAB PO SCH (21:29)
[2016-11-12] MEDS: PRAVASTATIN SODIUM 20 MG TAB PO SCH (21:29)
[2016-11-12] MEDS: LISINOPRIL 10 MG TAB PO SCH (21:30)
[2016-11-12] MEDS: AMITRIPTYLINE HCL 25 MG TAB PO SCH (21:30)
[2016-11-12] MEDS: PANTOPRAZOLE SODIUM IV 40 MG VIAL IV SCH (21:30)
[2016-11-12] MEDS: ZOLPIDEM TARTRATE 10 MG TAB PO SCH (21:30)
[2016-11-13] MEDS ORDERED: levoFLOXacin 500MG IV 100 ML IVPB ONE (07:14)
[2016-11-13] MEDS: INSULIN LISPRO 100 UNITS/ML PEN SUBCU SCH ×4 (07:20→21:10)
--- NOTE | 2016-11-13 07:52 | RAD ---
Clinical History : COPD , MAIN Exam : PA and lateral views of the chest 11/13/2016 7:00 AM CDT Comparisons : PA and lateral views of the chest November 11, 2016 Findings : There is mild diffuse peribronchial thickening throughout the lungs bilaterally. There is no focal consolidation or pleural effusion. The heart is normal in size. The mediastinal contours are normal in appearance. The thoracic spine is age appropriate. The shoulders are unremarkable. Limited evaluation of the upper abdomen demonstrates no gross abnormalities. Impression: Increasing mild peribronchial thickening, may represent viral or atypical infectious process. Electronically signed by: Temo Garcia MD 11/13/2016 7:51 AM CDT
[2016-11-13] MEDS: INSULIN GLARGINE SC SCH (08:34)
[2016-11-13] MEDS: BIFIDOBACTERIUM INFANTIS 4 MG CAP PO SCH (08:34)
[2016-11-13] MEDS: CITALOPRAM HBR 20 MG TAB PO SCH (08:34)
[2016-11-13] MEDS: guaiFENesin ER TAB 600 MG TAB PO SCH ×2 (08:34→21:10)
[2016-11-13] MEDS: IPRATROPIUM/ALBUTEROL 3 ML VIAL INH SCH ×4 (08:35→20:30)
[2016-11-13] MEDS: ALPRAZolam 0.25 MG TAB PO PRN ×3 (08:37→21:09)
[2016-11-13] MEDS: SODIUM CHLORIDE 0.9% (FLUSH) 10 ML SYG IV SCH ×2 (08:39→21:09)
[2016-11-13] MEDS: levoFLOXacin 500MG IV 500 MG in PREMIX BAG 1 BAG IVPB SCH (09:43)
[2016-11-13] MEDS: HYDROcodone 5MG/APAP 325MG 1 EA TAB PO PRN ×2 (12:41→17:45)
[2016-11-13] MEDS: PANTOPRAZOLE SODIUM IV 40 MG VIAL IV SCH (21:08)
[2016-11-13] MEDS: AMITRIPTYLINE HCL 25 MG TAB PO SCH (21:10)
[2016-11-13] MEDS: ZOLPIDEM TARTRATE 10 MG TAB PO SCH (21:10)
[2016-11-13] MEDS: PRAVASTATIN SODIUM 20 MG TAB PO SCH (21:10)
[2016-11-13] MEDS: LISINOPRIL 10 MG TAB PO SCH (21:10)
[2016-11-13] MEDS: METOPROLOL SUCCINATE XL 50 MG TAB PO SCH (21:10)
[2016-11-13] MEDS: ENOXAPARIN SODIUM 40 MG/0.4 ML SYG SUBCU SCH (21:12)
[2016-11-14] MEDS: HYDROcodone 5MG/APAP 325MG 1 EA TAB PO PRN ×2 (06:10→10:35)
[2016-11-14] MEDS: ALPRAZolam 0.25 MG TAB PO PRN ×2 (06:10→12:39)
[2016-11-14 08:08] VITALS: BP 110/74; TEMP 98.4
--- NOTE | 2016-11-14 08:28 | PN ---
DATE: 11-13-16 SUPERVISING PHYSICIAN: Beau Weston M.D. SUBJECTIVE: The patient notes today he is no longer having any nausea or abdominal pain and notes his diarrhea has also stopped. He has been able to stay off the BiPAP and is feeling better. He remains afebrile. He is starting to have a much more productive cough.. OBJECTIVE: VITAL SIGNS: T max 98.4, pulse 88, blood pressure 120/78, respirations 20, O2 sat 94% on room air. I's and O's show a positive balance of 440 with 1940 in, 1500 out. Weight 100.2 kg. GENERAL: The patient is actually resting, appears to be in no acute distress. He is alert. CHEST: Lungs remain diminished towards the bases with some faint rhonchi heard bilaterally. No rales or wheezing is noted. HEART: Regular rate and rhythm. ABDOMEN: Obese, soft, non-tender. Bowel sounds are positive. EXTREMITIES: No clubbing, cyanosis or edema. NEUROLOGIC: He is alert and oriented times three. LABORATORY: Normalizing white count at 11.6 compand to 16.8 previous day with hemoglobin 15.0, hematocrit 46.2 which is stable with platelet count 176,000, differential now shows to be normalizing. Chemistries show sodium 145, otherwise potassium and other electrolytes within normal limits with potassium 4.1. Glucoses improved and stabilized from previous days showing 116 at 2:15 with calcium 8.7. MICROBIOLOGY: Stool culture showed no enteric pathogens at 48 hours. Clostridium Difficile x1 was negative for A and B. Sputum culture showed no growth at 48 hours. MRSA surveillance culture completed at 72 hours showed no growth and blood cultures remained negative at 3 days. . RADIOLOGY: Chest x-ray 2 view per radiology interpretation today shows increase in mild peribronchial thickening which could represent viral or atypical infectious process. CT of the abdomen with contrast per radiology interpretation showed no acute abnormalities in the pelvis and abdomen. Bladder was noted to be significantly distended, otherwise was unremarkable. There was noted colonic diverticulosis without any evidence of diverticulitis. ASSESSMENT: 1. Acute exacerbation of chronic obstructive pulmonary disease having failed to respond to outpatient treatment therapy with both corticosteroids and antibiotics to include Levaquin. 2. Moderate hypoxemia as noted on ABG at admission with PO2 of 64 requiring BiPAP showing improvement with patient being able to maintain O2 saturations on nasal cannula now. 3. History of diverticular disease with the patient having multiple episodes of diarrhea since admission with CT of the abdomen showing no acute diverticulitis with patient now reported diarrhea has resolved. Patient was started on a probiotic. 4. Diabetes mellitus type 2 previously poorly controlled secondary to corticosteroid administration with Solu-Medrol as well as prednisone prior to admission improving with a sliding and continued short-acting insulin. 5. Hypertension. 6. Chronic hepatitis C. 7. Leukocytosis improving felt to be possibly related to underlying infection with some demarginalization from previous corticosteroid administration with C Diff studies and stool cultures showing to be without any significant findings. PLAN: Patient will continue with current plan of care to include Levaquin. Will add CPT to his bronchial hygiene to assist with his clearance of mucous and attain an ambulatory study later today to evaluate his oxygenation status. He is taking adequate p.o. fluids, remains saline locked and is on DVT prophylaxis. Patient is showing improvement and additional 24 hours of antibiotics parenterally is warranted as the patient continues to wear BiPAP for short term at night. He does warrant a sleep study in the future to further rule out any complications from sleep apnea which can be done in an outpatient setting through Dr. Alexis office.. Will anticipate discharge tomorrow and plan to repeat CBC and BNP in the morning. Until then, will continue to monitor the patient closely and treat appropriately. #[id number] [facility]
[2016-11-14] MEDS: IPRATROPIUM/ALBUTEROL 3 ML VIAL INH SCH ×2 (08:35→12:00)
[2016-11-14] MEDS: INSULIN GLARGINE SC SCH (08:59)
[2016-11-14] MEDS: INSULIN LISPRO 100 UNITS/ML PEN SUBCU SCH ×4 (08:59→11:56)
[2016-11-14] MEDS: guaiFENesin ER TAB 600 MG TAB PO SCH (09:00)
[2016-11-14] MEDS: BIFIDOBACTERIUM INFANTIS 4 MG CAP PO SCH (09:00)
[2016-11-14] MEDS: CITALOPRAM HBR 20 MG TAB PO SCH (09:09)
[2016-11-14] MEDS: SODIUM CHLORIDE 0.9% (FLUSH) 10 ML SYG IV SCH (09:12)
[2016-11-14] MEDS ORDERED: levoFLOXacin 500MG IV 100 ML IVPB ONE (10:29)
[2016-11-14] MEDS: levoFLOXacin 500MG IV 500 MG in PREMIX BAG 1 BAG IVPB SCH (10:34)
[2016-11-14] MEDS: IV SET AND CAP CHANGE INJ INJ SCH (11:54)
[2016-11-15 07:48] VITALS: O2SAT 97
--- NOTE | 2016-11-15 09:41 | DS ---
SUPERVISING PHYSICIAN: David Alexis MD DISCHARGE DIAGNOSIS: 1. Acute exacerbation of chronic obstructive pulmonary disease having failed to respond to outpatient treatment plan that included corticosteroids and antibiotics that included Levaquin with x-ray indicating possible underlying pneumonia bilaterally with the patient showing good improvement after BiPAP and continued antibiotics. 2. Moderate hypoxemia as noted on ABG at time of admission with PaO2 of 64, requiring initial BiPAP support for maintaining O2 saturations with the patient being able to titrate off BiPAP to room air prior to discharge. 3. History of diverticular disease with the patient having several episodes of diarrhea during admission with CT of the abdomen showing no acute diverticulitis with diarrhea resolving prior to discharge, felt to be likely secondary to antibiotic administration. 4. Diabetes mellitus, type 2, previously poorly controlled secondary to corticosteroid administration with Solu-Medrol and previous prednisone tapering dose, requiring sliding scale and short-acting insulin, showing improvement and to be stable at time of discharge. 5. Hypertension. 6. Chronic hepatitis C. 7. Leukocytosis secondary to underlying infection, likely community acquired pneumonia with some component secondary to demargination from corticosteroid administration with no obvious infectious sources noted on Clostridium difficile studies negative as well as stool cultures with no other significant findings with the patient normalizing white count prior to discharge. HISTORY OF PRESENT ILLNESS: Mr. Alexander is a 56 year-old male patient of Dr. Alexis that was seen this past Monday prior to admission in the clinic for acute exacerbation of chronic obstructive pulmonary disease. He was having symptoms to include a cough, worsening shortness of breath, wheezing and chest congestion, and was started on Levaquin and given a prednisone tapering dose. He presented back to the clinic the day of admission for followup noting his symptoms had significantly worsened and he was having significant difficulty with breathing, and a more productive cough. Given the fact that the patient has a significant history of chronic obstructive pulmonary disease having failed to respond to outpatient treatment plan for acute exacerbation of his chronic obstructive pulmonary disease, the patient was admitted for further continued evaluation and treatment. He was admitted to the Medical/Surgical floor in stable condition. LABORATORY: White count on admission was 12.7. It did max out at 16.8. With continued treatment, at time of discharge, it had normalized to 10.3. Hemoglobin and hematocrit were stable and at time of discharge, hemoglobin 14.8 , hematocrit 44.8. Platelet count 167,000. Differential did show a left shift initially, but this resolved prior to discharge. Coagulation studies showed normal PT, PT-T. Blood gas analysis showed pH 7.45, bicarb 25.2, PO2 64, PCO2 37, saturation 94% on nasal cannula at 2 liters, carboxyhemoglobin 4.6. Chemistries on admission showed initially low sodium at 131, potassium 4.3, initial glucose on admission was elevated at 409. Liver functions were within normal limits. He had one troponin that was less than 0.02 and magnesium initially on admission low at 1.7. Magnesium did normalize once he was replaced with IV magnesium. Potassium did reach a maximum of 5.2, however, prior to discharge, his electrolytes had normalized, potassium 3.9, BUN 17, creatinine 0.76. Glucoses were elevated although started to be more controlled towards discharge. Glucoses ranged from a low of [address] up to 365. Urinalysis on admission showed 500 glucose, trace of intact blood on dipstick with microscopic within normal limits. MICROBIOLOGY: Stool cultures showed no enteric pathogens at 72 hours. C. difficile was negative, both A and B. Sputum culture showed normal jenniffer at 48 hours. MRSA surveillance cultures showed no growth at 72 hours. Blood cultures remained negative after four days. RADIOLOGY: Initial chest x-ray on admission showed no acute cardiopulmonary disease with a stable appearing chest. He had an abdominopelvic CT secondary to underlying diarrhea and some abdominal discomfort and per radiology interpretation, there were no acute abnormalities in the abdomen or pelvis identified. Urinary bladder was slightly distended, but unremarkable. There was note of colonic diverticulosis without any evidence of diverticulitis. He had a final repeat chest x-ray and per radiology interpretation there was noted increase in mild peribronchial cuffing which could represent atypical infection versus viral infection. HOSPITAL COURSE: Mr. Alexander was admitted on 11/10/[address] Alexis' office with concerns for worsening pneumonia as noted in history of present illness above. He was started on Solu-Medrol and continued on Levaquin IV. Initially, he did show a low PO2 as noted in laboratory studies. He was quite diminished in breath sounds and required BIPAP assistance for a couple of days and did show good clinical improvement. He did develop some diarrhea with stool workup indicating no obvious signs of infection. There was no diverticulitis on CT. This resolved without any further treatment. At time of discharge, he was without any diarrhea, no abdominal pain. His white count had normalized, he was afebrile, and oxygenated well with ambulatory studies showing he was maintaining O2 sats on room air well within the mid-90s. It was felt that he was clinically improved and stable enough to be discharged to continue outpatient treatment plan. PLAN: Mr. Alexander was discharged on 11/14/16 to have close clinical followup with Dr. Alexis as scheduled. He was to resume his home medications as previously prescribed. He was to start taking his Levaquin as prior to admission to the hospital to completion as per Dr. Alexis' orders for five more days and to take his prednisone tapering regimen to completion. He was encouraged to use his Xopenex nebulizer treatments as instructed. He was instructed the steroid tapering dose would raise his blood sugar significantly and to monitor this closely at least three times a day and increase his a.c. coverage of insulin to 40 units if his blood sugar was above 250. Otherwise, he was to continue with previous orders for his insulin as per prior to hospitalization. He was to keep a strict diabetic diet of 1800 calories or less to assist in controlling his blood pressures better. He was instructed to take a probiotic of his choice [id number] to prevent any further diarrhea associated with antibiotic therapy. He was encouraged to increase his activities and utilize his incentive spirometry to help improve his lung function. He is to return to the hospital if he had any worsening or failure to improve his symptoms. At time of discharge, new prescriptions included: 1. Levaquin 500 mg for completion of therapy as prior to admission. 2. Xopenex HandiHaler inhaler to utilize q.4h. as needed for wheezing, #1, no refills. All other medications prior to admission were continued as prescribed. He was discharged in stable condition. #[id number] [facility]
== END 2016-11-14 12:55 | disposition home or self-care (01) | DRG 190 ==
LOC: MS 09:15
PROVIDERS: ADMIT Nurse Practitioner Family; ATTEND Nurse Practitioner Family
PROC: BW21YZZ Computerized Tomography (CT Scan) of Abdomen and Pelvis using Other Contrast (ICD-10-PCS; principal; 2016-11-12)
DX: J44.0 Chronic obstructive pulmonary disease with (acute) lower respiratory infection (principal); J18.9 Pneumonia, unspecified organism; K52.1 Toxic gastroenteritis and colitis; E87.1 Hypo-osmolality and hyponatremia; J44.1 Chronic obstructive pulmonary disease with (acute) exacerbation; R09.02 Hypoxemia; T36.95XA Adverse effect of unspecified systemic antibiotic, initial encounter; Y92.230 Patient room in hospital as the place of occurrence of the external cause; K57.30 Diverticulosis of large intestine without perforation or abscess without bleeding; E11.65 Type 2 diabetes mellitus with hyperglycemia; T38.0X5A Adverse effect of glucocorticoids and synthetic analogues, initial encounter; I10 Essential (primary) hypertension; B18.2 Chronic viral hepatitis C; E83.42 Hypomagnesemia; K21.9 Gastro-esophageal reflux disease without esophagitis; E78.5 Hyperlipidemia, unspecified; G89.29 Other chronic pain; M54.5 Low back pain; E11.42 Type 2 diabetes mellitus with diabetic polyneuropathy; F17.210 Nicotine dependence, cigarettes, uncomplicated; E66.9 Obesity, unspecified; Z79.4 Long term (current) use of insulin; Z79.899 Other long term (current) drug therapy; Z88.5 Allergy status to narcotic agent; Z68.32 Body mass index [BMI] 32.0-32.9, adult

== ENCOUNTER → 2016-11-17 | Outpatient (CLI) | payer MEDICARE, MEDICAID | LOC: LAB.O 08:23 | PROVIDERS: ATTEND Orthopaedic Surgery | DX: Z01.818 Encounter for other preprocedural examination (principal) ==

== ENCOUNTER 2017-04-12 12:53 | Inpatient (IN) | payer MEDICARE, MEDICAID ==
[2017-04-12] MEDS ORDERED: SODIUM CHLORIDE 0.9% (FLUSH) 10 ML SYG IV PRN ×2 (13:27→16:27)
[2017-04-12] MEDS ORDERED: HYDROcodone 10MG/APAP 325MG 1 EA TAB PO ONE (13:30)
--- NOTE | 2017-04-12 13:40 | ED.PDOC ---
History of Present Illness - General Chief Complaint: Skin/Abrasion/Tear Stated Complaint: sore on toe Time Seen by Provider: 04/12/17 13:27 Source: patient, family Exam Limitations: no limitations - History of Present Illness Initial Comments: PT PRESENTS TO THE ED FOR LEFT GREAT TOE ULCER THAT APPEARED ABOUT 1 WK AGO AND HAS FAILED TO IMPROVE WITH HOME TREATMENT. PT REPORTS THAT PAIN IS EXTENDING UP THE FOOT TO THE ANKLE. Timing/Duration: 1 week, constant, getting worse Severity: moderate Improving Factors: immobilization Worsening Factors: movement Allergies/Adverse Reactions: Allergies Morphine Allergy (Verified 05/19/16 23:27) Other Makes him "delerious, nuts" Home Medications: Ambulatory Orders Amitriptyline HCl [Elavil] 100 mg PO BEDTIME 06/17/14 Citalopram Hydrobromide [Celexa] 40 mg PO QAM 06/17/14 Furosemide Tab [Lasix Tab] 40 mg PO DAILY PRN 06/17/14 Lisinopril 40 mg PO BEDTIME 06/17/14 Metoprolol Succinate [Toprol Xl] 50 mg PO BEDTIME 06/17/14 Zolpidem Tartrate [Ambien] 10 mg PO BEDTIME 06/17/14 Insulin Glargine [Toujeo Solostar] 85 unit SC DAILY 11/04/15 Ondansetron [Zofran Odt] 4 mg PO Q6H PRN #5 tab 11/04/15 Omeprazole Magnesium [Prilosec Otc] 20 mg PO DAILY #20 tab 01/05/16 Insulin Lispro (Human) [Humalog] 30 unit SC AC 09/01/16 Pravastatin Sodium [Pravachol] 40 mg PO BEDTIME 09/01/16 Levalbuterol Tartrate [Xopenex Hfa] 45 mcg IN Q4H #1 ml 11/14/16 Review of Systems - Review of Systems Constitutional: Denies: fever EENTM: Denies: blurred vision, nose congestion Respiratory: Denies: cough, short of breath Cardiology: Denies: chest pain, palpitations Gastrointestinal/Abdominal: Denies: abdominal pain, nausea Genitourinary: Denies: dysuria, frequency Musculoskeletal: Denies: joint pain, joint swelling Skin: States: see HPI, change in color, lesions Neurological: States: no symptoms reported Endocrine: States: no symptoms reported Past Medical History (General) - Patient Medical History Hx Seizures: No Hx Stroke: No Hx Dementia: No Hx Asthma: No Hx of COPD: Yes Hx Cardiac Disorders: Yes Hx Congestive Heart Failure: No Hx Pacemaker: No Hx Hypertension: Yes Hx Thyroid Disease: No Hx Diabetes: Yes - type 2 on insulin Hx Gastroesophageal Reflux: Yes Hx Renal Disease: No Hx Cancer: No Hx of HIV: No Hx Hepatitis C: Yes Hx MRSA: Yes MRSA Source:: Wound - Vaccination History Hx Tetanus, Diphtheria Vaccination: Yes Hx Influenza Vaccination: Yes Hx Pneumococcal Vaccination: Yes - Social History Hx Tobacco Use: Yes Hx Chewing Tobacco Use: No Hx Alcohol Use: No Hx Substance Use: No Hx Substance Use Treatment: No Hx Depression: No Hx Physical Abuse: No Hx Emotional Abuse: No Hx Suspected Abuse: No - Female History Patient : No Family Medical History - Family History Mother Family History: Unknown Living Status: Age at (years of age): 47 Hx Family Hypertension: Yes Hx Cardiac Disease: Yes Physical Exam - Physical Exam General Appearance: Alert, Obvious distress, Well Developed, Well Groomed, Well Hydrated Ears, Nose, Throat: hearing grossly normal, normal ENT inspection Neck: normal inspection Extremity: no pedal edema, no calf tenderness, other - ERYTHEMA AND TENDERNESS TO THE L GREAT TOE EXTENDING UP THE PLANTAR SURFACE OF THE FOOT. THERE IS A SHALLOW ULCERATED LESION ON THE PLANTAR SURFACE OF THE TOE APPROXIMATELY 2X2CM IN DIAMETER. Neurologic: alert, normal mood/affect, oriented x 3 Skin Exam: normal color, warm/dry Progress - Progress Progress: 04/12/17 14:53 PT RESTING COMFORTABLY, LABS AND XRAY FINDINGS DISCUSSED. PT AGREES WITH PLAN TO ADMIT FOR IV ABX. - Results/Orders Results/Orders: 04/12/17 13:27 Sodium Chloride 0.9% (Flush) [Saline Flush Syringe] 10 ml IV PRN PRN 04/12/17 13:28 IV Care:Saline Lock per Protoc QSHIFT Telemetry .ONCE 04/12/17 14:49 Vancomycin HCl Inj 1,000 mg Vancomycin HCl Inj 500 mg Sodium Chloride 0.9% 250Ml [NS 250ml] 250 ml IVPB ONCE Laboratory Results - last 24 hr 04/12/17 04/12/17 13:40 13:40 WBC 10.8 RBC 5.02 Hgb 15.5 Hct 47.0 MCV 93.7 MCH 30.9 MCHC 32.9 L RDW 13.6 Plt Count 251 MPV 9.7 Absolute Neuts (auto) 7.00 H Absolute Lymphs (auto) 2.10 Absolute Monos (auto) 1.20 H Absolute Eos (auto) 0.40 Absolute Basos (auto) 0.10 Neutrophils % 64.5 Lymphocytes % 19.4 L Monocytes % 11.5 H Eosinophils % 3.8 Basophils % 0.8 Sodium 132 L Potassium 4.8 Chloride 98 L Carbon Dioxide 25 Anion Gap 13.8 BUN 20 H Creatinine 1.17 BUN/Creatinine Ratio 17.1 Random Glucose 490 H* Serum Osmolality 288.9 Calcium 8.9 Total Bilirubin 0.4 AST 14 ALT 17 Alkaline Phosphatase 77 Serum Total Protein 6.9 Albumin 3.5 Globulin 3.4 Albumin/Globulin Ratio 1.0 L - EKG/XRAY/CT XRAY: FOOT Xray Comments: NO OSTEOMYELITIS, SUBCUTANEOUS EMPHYSEMA TO THE LEFT GREAT TOE. Departure - Departure Clinical Impression: Diabetic foot infection, Uncontrolled diabetes mellitus Time of Disposition: 14:55 Disposition: Admit Patient Condition: Fair Departure Forms: ED Discharge - Pt. Copy, Patient Portal Self Enrollment Referrals: David Alexis MD [Primary Care Provider] - 1-2 Weeks Home Medications: Ambulatory Orders Amitriptyline HCl [Elavil] 100 mg PO BEDTIME 06/17/14 Citalopram Hydrobromide [Celexa] 40 mg PO QAM 06/17/14 Furosemide Tab [Lasix Tab] 40 mg PO DAILY PRN 06/17/14 Lisinopril 40 mg PO BEDTIME 06/17/14 Metoprolol Succinate [Toprol Xl] 50 mg PO BEDTIME 06/17/14 Zolpidem Tartrate [Ambien] 10 mg PO BEDTIME 06/17/14 Insulin Glargine [Toujeo Solostar] 85 unit SC DAILY 11/04/15 Ondansetron [Zofran Odt] 4 mg PO Q6H PRN #5 tab 11/04/15 Omeprazole Magnesium [Prilosec Otc] 20 mg PO DAILY #20 tab 01/05/16 Insulin Lispro (Human) [Humalog] 30 unit SC AC 09/01/16 Pravastatin Sodium [Pravachol] 40 mg PO BEDTIME 09/01/16 Levalbuterol Tartrate [Xopenex Hfa] 45 mcg IN Q4H #1 ml 11/14/16 Decision To Admit - Decistion To Admit Decision to Admit Reason: Admit from ER - DIABETIC FOOT INFECTION, UNCONTROLLED DIABETES Decision to Admit Date: 04/12/17 - CASE DISCUSSED WITH IVY BELL WHO AGREES TO ADMIT Decision to Admit Time: 14:56
--- NOTE | 2017-04-12 13:55 | RAD ---
Study: 3 Views of the Left Foot. Indication: LEFT GREAT TOE SWELLING, R/O OSTEOMYELITIS Comparison: None. IMPRESSION: Soft tissue swelling first digit with questionable subcutaneous emphysema along the medial margin. No periostitis. No acute fracture. Mild osteoarthritis first MTP joint. Electronically signed by: Michael Freeman MD 04/12/2017 1:54 PM CDT
[2017-04-12] MEDS ORDERED: VANCOMYCIN HCL INJ 1,000 MG, VANCOMYCIN HCL INJ 500 MG in SODIUM CHLORIDE 0.9% 250ML 25... IVPB ONE (14:49)
[2017-04-12] MEDS ORDERED: SODIUM CHLORIDE 0.9% 250ML 0 ML ONE (15:43)
[2017-04-12] MEDS ORDERED: VANCOMYCIN HCL INJ 500 MG VIAL ONE (15:43)
[2017-04-12] MEDS ORDERED: VANCOMYCIN HCL INJ 1,000 MG VIAL IVPB ONE ×3 (15:43→20:29)
[2017-04-12] MEDS ORDERED: SODIUM CHLORIDE 0.9% 1000ML 1,000 ML IVS ONE (16:17)
[2017-04-12] MEDS ORDERED: KETOROLAC TROMETHAMINE INJ 30 MG/ML VIAL IV ONE (16:17)
--- NOTE | 2017-04-12 16:20 | HP ---
SUPERVISING PHYSICIAN: Beau Weston MD CHIEF COMPLAINT: Sore on left toe. HISTORY OF PRESENT ILLNESS: Mr. Alexander is a 56-year-old, male patient that has a history of diabetes who presented to the Emergency Department today with complaint of left toe ulceration that had been ongoing for about a week and has failed to improve with any [id number] home remedy treatments. The patient notes the pain is starting to extend up into his foot and into the ankle and he is having some purulent looking drainage. In the Emergency Department prior to admission, x-ray was completed of the left foot and per radiologic interpretation there was soft tissue swelling about the first digit with questionable subcutaneous emphysema along the medial margin, but no acute fracture. There was mild osteoarthritis within the first metatarsophalangeal joint, but no mention of osteomyelitis. Laboratory studies showed he had a normal white count of 10.8 with an elevated neutrophil count. He also had a blood sugar of 490 with potassium 4.8. Given uncontrolled diabetes and ongoing cellulitis of the left great toe, Dr. Stern requested the patient be admitted to the hospital for initiation of antibiotic therapy to include vancomycin. The patient was admitted in stable condition. PAST MEDICAL HISTORY: 1. Chronic obstructive pulmonary disease. 2. Type 2 diabetes mellitus on insulin. 3. Fracture of T12, L1 and L2 after a fall. 4. Gastroesophageal reflux disease. 5. Hyperlipidemia. 6. Hypertension. 7. Diverticulosis. 8. History of recurrent pancreatitis in the past with last hospitalization noted to be in January 2016. 9. History of hepatitis C. 10. Chronic lower back pain. 11. Peripheral neuropathy. 12. History of shoulder infection in 2007. PAST SURGICAL HISTORY: 1. Hernia repair of bilateral inguinal hernias. 2. Spinal surgery, lumbar region. 3. Left orchiopexy. 4. Right rotator cuff repair. 5. Left shoulder incision and drainage of abscess. CURRENT MEDICATIONS: 1. Ambien 10 mg at bedtime. 2. Pravachol 40 mg at bedtime. 3. Zofran ODT 4 mg q.6h. as needed. 4. Prilosec OCT 20 mg daily. 5. Toprol XL 50 mg at bedtime. 6. Lisinopril 40 mg at bedtime. 7. Xopenex inhaler 40 mcg inhaled q.4h. as needed. 8. Humalog 30 units subcutaneously a.c.. 9. Toujeo 85 units daily. 10. Lasix 40 mg daily p.r.n. 11. Celexa 40 mg q.a.m. 12. Elavil 100 mg at bedtime. ALLERGIES: MORPHINE. FAMILY HISTORY: Unremarkable. SOCIAL HISTORY: The patient is disabled and . He lives in [place], [place]. He is a current smoker and smokes about 1-1/2 packs a day. He denies any alcohol or recent illicit drug use. He does have a past history of amphetamine, barbiturates, cocaine and marijuana usage. REVIEW OF SYSTEMS: CONSTITUTIONAL: Denies any fevers, fatigue, or unintentional weight loss. HEENT: Denies sore throat, ear pain, sinus symptoms. RESPIRATORY: Denies cough, shortness of breath, wheezing. CARDIOVASCULAR: Denies chest pain or palpitations. Denies syncopal episodes. GASTROINTESTINAL: Denies abdominal pain, constipation, diarrhea, nausea or vomiting. GENITOURINARY: Denies dysuria, hematuria, polyuria or other urinary symptoms. MUSCULOSKELETAL: As noted in history of present illness. NEUROLOGIC: No reported headaches, dizziness or syncopal episodes. PHYSICAL EXAMINATION: VITAL SIGNS: Temperature 97.8. Pulse 96. Blood pressure 100/58. Respirations 16. O2 saturation 96% on room air. Admission weight 96.5 kg. GENERAL: The patient appears to be well groomed, obese, in no acute distress at time of exam. He is alert. HEENT: Tympanic membranes clear bilaterally. Oropharynx is pink, mucous membranes dry. NECK: Supple, nontender with full range of motion. No jugular venous distention noted. CHEST: Lungs clear to auscultation bilaterally. CARDIOVASCULAR: Regular rate and rhythm. ABDOMEN: Obese, but soft, nontender. Positive bowel sounds. EXTREMITIES: There is no noted edema, cyanosis or clubbing. There was notable erythema and tenderness to the left great toe that extended up the plantar surface of the foot with a shallow ulcerated lesion on the plantar surface of the toe measuring approximately 2 by 2 cm with some notable drainage. NEUROLOGIC: The patient is alert and oriented times three. Cranial nerves II- XII are grossly intact. Facial features are symmetrical. Extraocular movements are within normal limits. There is no nystagmus noted. LABORATORY: White count normal at 10.8, hemoglobin 15.5, hematocrit 47.0, platelet count 251,000. Differential did show early left shift. Chemistries showed potassium 4.8, sodium 132, initial glucose 490 with a corrected sodium of 142. Serum osmolality 289, anion gap normal at 13.8, BUN 20, creatinine 1.71. Liver functions within normal limits. Urinalysis pending. MICROBIOLOGY: Culture of the drainage from the left toe is pending. RADIOLOGY: X-ray of the left foot per radiologic interpretation showed soft tissue swelling of the first digit with questionable subcutaneous emphysema along with medial margin, no periostitis and no acute fracture noted. ASSESSMENT: 1. Diabetic ulcer of left great toe. 2. Cellulitis of the left great toe secondary to #1. 3. Chronic obstructive pulmonary disease. 4. Type 2 diabetes mellitus on insulin, poorly controlled as evidenced by elevated blood sugar on admission with no evidence of ketoacidosis and normal anion gap. 5. Chronic back pain secondary to fractures of T12, L1, and L2 after a fall. 6. Gastroesophageal reflux disease. 7. Hyperlipidemia. 8. Hypertension. 9. Diverticulosis. 10. History of recurrent pancreatitis having been hospitalized in the past in 2016. 11. History of hepatitis C. 12. Peripheral neuropathy secondary to diabetes. 13. History of left shoulder infection in 2007. PLAN: Mr. Alexander is to be admitted to the Medical/Surgical Floor for initiation of antibiotic therapy with vancomycin. Vancomycin was started in the Emergency Department with 1500 mg to be continued with vancomycin per pharmacy protocol. We will await culture results to further target antibiotic therapy. He will be encouraged to keep his leg elevated. We will provide wound management with Hibiclens wound care and wet-to-dry dressings for now. We will start him on some IV fluids initially with normal saline and recheck his BNP in 3 to 4 hours and adjust IV fluids according to his potassium, sodium and ongoing elevated blood sugar. He will be started on an 1800 calorie ADA diet. We will start him on DVT prophylaxis per protocol. Anticipate length of stay to be two to three days. Until the patient shows good clinical improvement , again with concerns for developing osteomyelitis with the diabetic ulcer, we will continue to monitor the patient closely and treat appropriately. Once discharged, he will need to continue with antibiotic therapy as appropriate and have close clinical followup with his primary care physician, Dr. Alexis. #[id number] [facility]
--- NOTE | 2017-04-12 16:24 | PCM.CORE ---
Physician DVT/VTE - Nurse DVT Assessment & Total Each Risk Factor Represents 3 Points: Medical PT with Hx of [place], CHF, Severe infection/sepsis Each Risk Factor Represents 1 Point: Age 41-60 Each Risk Factor is 1 Point: Obesity (BMI >25) DVT Assessment Score: 5 - 5 or more Very High Risk Treatments: Early Ambulation *, Sequential Compression Device Pharmacological: Enoxaparin 40mg SQ Daily
[2017-04-12] MEDS ORDERED: GLUCAGON INJ 1 MG VIAL SUBCU PRN (16:27)
[2017-04-12] MEDS ORDERED: ACETAMINOPHEN 325 MG TAB PO PRN (16:27)
[2017-04-12] MEDS ORDERED: ALUM & MAG HYDROX-SIMETHICONE 30 ML UD PO PRN (16:27)
[2017-04-12] MEDS ORDERED: ONDANSETRON INJ 4 MG/2 ML VIAL IV PRN (16:27)
[2017-04-12] MEDS ORDERED: DEXTROSE 50% 25 GM/50 ML SYG IV PRN (16:27)
[2017-04-12] MEDS ORDERED: MAGNESIUM HYDROXIDE 30 ML UD PO PRN (16:27)
[2017-04-12] MEDS ORDERED: IV SET AND CAP CHANGE INJ INJ SCH (16:30)
[2017-04-12] MEDS ORDERED: VANCOMYCIN PER PHARMACY INJ SCH (16:30)
[2017-04-12] MEDS ORDERED: KCL 40MEQ/NS 1,000 ML IVS PRN (17:18)
[2017-04-12] MEDS ORDERED: INSULIN LISPRO 100 UNITS/ML PEN SUBCU ONE (17:21)
[2017-04-12] MEDS ORDERED: KCL 40MEQ/NS 1,000 ML IVS ONE (17:51)
[2017-04-12] MEDS: ENOXAPARIN SODIUM 40 MG/0.4 ML SYG SUBCU SCH (18:19)
[2017-04-12] MEDS: INSULIN LISPRO 100 UNITS/ML PEN SUBCU SCH ×2 (18:20→21:19)
[2017-04-12] MEDS ORDERED: SODIUM CHLORIDE 0.9% 250ML 250 ML ONE ×2 (19:58→20:28)
[2017-04-12] MEDS ORDERED: SUCRALFATE 1 GM TAB PO ONE ×2 (20:24→20:25)
[2017-04-12] MEDS ORDERED: CEFUROXIME AXETIL TAB 250 MG TAB ONE (20:25)
[2017-04-12] MEDS ORDERED: VALSARTAN 80 MG TAB ONE (20:25)
[2017-04-12] MEDS ORDERED: AMITRIPTYLINE HCL 100 MG PO SCH (21:00)
[2017-04-12] MEDS ORDERED: AMITRIPTYLINE HCL 25 MG TAB ONE (22:44)
[2017-04-12] MEDS ORDERED: PRAVASTATIN SODIUM 20 MG TAB ONE (22:45)
[2017-04-12] MEDS: ZOLPIDEM TARTRATE 10 MG TAB PO SCH (22:47)
[2017-04-12] MEDS: KCL 20MEQ/0.45% NS 1,000 ML IVS PRN (22:47)
[2017-04-12] MEDS ORDERED: INSULIN DETEMIR 100 UNITS/ML PEN SUBCU ONE (22:48)
[2017-04-12] MEDS: METOPROLOL SUCCINATE XL 50 MG TAB PO SCH (22:55)
[2017-04-13] MEDS: VANCOMYCIN HCL INJ 1,000 MG in SODIUM CHLORIDE 0.9% 250ML 250 ML IVPB SCH ×2 (03:58→16:29)
[2017-04-13] MEDS: INSULIN LISPRO 100 UNITS/ML PEN SUBCU SCH ×4 (07:41→20:51)
[2017-04-13] MEDS ORDERED: LISINOPRIL 10 MG TAB PO SCH (09:00)
[2017-04-13] MEDS: CITALOPRAM HBR 20 MG TAB PO SCH (09:04)
[2017-04-13] MEDS: HYDROcodone 5MG/APAP 325MG 1 EA TAB PO PRN ×2 (09:04→20:14)
[2017-04-13] MEDS: ENOXAPARIN SODIUM 40 MG/0.4 ML SYG SUBCU SCH (09:05)
[2017-04-13] MEDS ORDERED: INSULIN DETEMIR 100 UNITS/ML PEN SUBCU SCH ×2 (10:00→21:28)
[2017-04-13] MEDS: KCL 20MEQ/0.45% NS 1,000 ML IVS PRN ×2 (11:05→21:43)
[2017-04-13] MEDS: CHLORHEXIDINE GLUCONATE 4 % 15 ML UD TOP SCH ×3 (11:06→20:52)
[2017-04-13] MEDS ORDERED: INSULIN DETEMIR 100 UNITS/ML PEN SUBCU ONE ×2 (14:09→20:30)
--- NOTE | 2017-04-13 14:41 | PN ---
DATE: 04/13/17 SUBJECTIVE: The patient is resting in the bed. We will encourage increased activity today. Still with pain in his left large toe with some referral up towards his knee. No significant erythema is evident. Awaiting final culture ID of what appears to be a gram positive cocci organism. Appetite is fairly good. OBJECTIVE: VITAL SIGNS: Afebrile. Blood pressure 101/65. Pulse oximetry 95% on room air. GENERAL: The patient is awake and alert. He has been sleeping quite well. Appetite is fairly good. LUNGS: Clear. HEART: Regular. ABDOMEN : Fairly good bowel tones with no significant tenderness or organomegaly noted. The ulceration on the left big toe is being dressed and wound care t.i.d. with some diluted Hibiclens with drying and then special dressings to be applied. Final culture ID by in the morning, but it appears to be a staph aureus species preliminarily. LABORATORY: Potassium 4.3. CO2 is down to 20. BUN 19, glucose 204 fasting and up to 274 at lunchtime. Extra insulin is going to be used to assist with ongoing control. White count 9,900, hemoglobin 13.5. Foot x-ray is performed and shows soft tissue swelling with some subcutaneous emphysema along the medial margin. ASSESSMENT: 1. Acute infection, left big toe with diabetic immunocompromise present. The ulceration has been present for the last week and has gotten worse under his local treatment at home with his . 2. Chronic diabetes mellitus, insulin dependent, poorly controlled, requiring fairly large doses of insulin, 80 units of Toujeo in the mornings and 30 units of Humalog subcutaneously before each meal. He does admit that he skips insulin on occasion. 3. Chronic obstructive pulmonary disease. 4. Chronic back pain secondary to fractures of T12, L1, and L2 after a fall. 5. History of gastroesophageal reflux disease. 6. History of hyperlipidemia. 7. History of hypertension. 8. History of diverticulosis, stable. 9. History of recurrent pancreatitis with last hospitalization in 2016. 10. History of hepatitis C. 11. Peripheral neuropathy secondary to diabetes. 12. History of left shoulder infection in 2007. PLAN: The patient will require vigorous ongoing treatment. He may benefit eventually by some debridement. Culture results pending by in the morning, but appear to be preliminarily a staph aureus species. Continue with localized therapy with diluted Hibiclens and dressing changes 3 times a day. The patient will require vigorous ongoing treatment, currently on vancomycin per pharmacy protocol. Close followup suggested. #[id number] [facility]
[2017-04-13] MEDS ORDERED: SODIUM CHLORIDE 0.9% 250ML 250 ML ONE ×2 (16:23→19:24)
[2017-04-13] MEDS ORDERED: VANCOMYCIN HCL INJ 1,000 MG VIAL IVPB ONE ×2 (16:24→19:25)
[2017-04-13] MEDS ORDERED: AMITRIPTYLINE HCL 25 MG TAB ONE (19:23)
[2017-04-13] MEDS ORDERED: PRAVASTATIN SODIUM 20 MG TAB ONE (19:24)
[2017-04-13] MEDS: HYDROmorphone HCL INJ 2 MG/ML VIAL IV PRN (20:39)
[2017-04-13] MEDS: METOPROLOL SUCCINATE XL 50 MG TAB PO SCH (20:50)
[2017-04-13] MEDS: ZOLPIDEM TARTRATE 10 MG TAB PO SCH (20:50)
[2017-04-13] MEDS: AMITRIPTYLINE HCL 25 MG TAB PO SCH (20:50)
[2017-04-13] MEDS: PRAVASTATIN SODIUM 20 MG TAB PO SCH (20:50)
[2017-04-14] MEDS: HYDROmorphone HCL INJ 2 MG/ML VIAL IV PRN ×4 (03:04→21:30)
[2017-04-14] MEDS: VANCOMYCIN HCL INJ 1,000 MG in SODIUM CHLORIDE 0.9% 250ML 250 ML IVPB SCH (04:17)
--- NOTE | 2017-04-14 06:19 | RAD ---
Clinical History : Shortness of breath and fever , MAIN Exam : PA and lateral views of the chest 04/14/2017 8:00 AM CDT Comparisons : PA and lateral views of the chest November 13, 2016 Findings : The lungs are clear without focal consolidation or pleural effusion. The heart is normal in size. The mediastinal contours are normal in appearance. The thoracic spine is age appropriate. The shoulders are unremarkable. Limited evaluation of the upper abdomen demonstrates no gross abnormalities. Impression: No acute cardiopulmonary disease Electronically signed by: Temo Garcia MD 04/14/2017 6:18 AM CDT
[2017-04-14] MEDS: INSULIN LISPRO 100 UNITS/ML PEN SUBCU SCH ×4 (07:52→21:08)
[2017-04-14] MEDS: CITALOPRAM HBR 20 MG TAB PO SCH (08:49)
[2017-04-14] MEDS: ENOXAPARIN SODIUM 40 MG/0.4 ML SYG SUBCU SCH (08:51)
[2017-04-14] MEDS: CHLORHEXIDINE GLUCONATE 4 % 15 ML UD TOP SCH ×3 (08:54→21:12)
[2017-04-14] MEDS ORDERED: INSULIN DETEMIR 100 UNITS/ML PEN SUBCU SCH ×2 (09:00→21:30)
[2017-04-14] MEDS: KCL 20MEQ/0.45% NS 1,000 ML IVS PRN ×2 (10:38→21:30)
[2017-04-14] MEDS ORDERED: levoFLOXacin 500MG IV 500 MG in PREMIX BAG 1 BAG IVPB SCH (11:30)
[2017-04-14] MEDS ORDERED: levoFLOXacin 500MG IV 100 ML IVPB ONE (11:46)
--- NOTE | 2017-04-14 11:56 | PN ---
DATE: 04/14/17 SUBJECTIVE: The patient is lying in the bed with his left foot slightly elevated. He had increased pain last evening, but the pain seems to be a little bit better today. Still with an open area with some nonviable tissue surrounding the ulceration on the left foot. His diabetes is still very poorly controlled and especially indicated by the markedly elevated hemoglobin A1c noted. OBJECTIVE: VITAL SIGNS: Afebrile. Pulse 86. Blood pressure 117/78. Pulse oximetry 100% on room air. Weight 98.2 kg. GENERAL: He is awake and alert. He is not as active as he could or should be and is encouraged to increase activity today. EXTREMITIES: Exam of the toe does reveal an approximately 1 cm area of ulceration through several layers of the skin with some nonviable skin surrounding which may eventually benefit from debridement which can be performed in outpatient after the initial treatment course has been continued. LABORATORY: White count is 11,700, hemoglobin 13.1. His sugars earlier this morning are 202 fasting, up to 277 before lunch after an increased dose of Levemir is given approaching the higher doses of Toujeo which he is taking at home. Hemoglobin A1c is elevated at 15.1, which is as high as it has ever been. Hemoglobin A1c was 8.9 in April of 2013 and was up to 10.3 in May of 2016 and today, it is 15.1. Review of his previous records fails to reveal a Doppler arterial study so one will be suggested to assist with further information as to underlying etiologies of the ongoing ulceration of his left big toe. Culture of the toe reveals a non-MRSA species, which is sensitive to many medications except penicillins, resistance noted. The patient will be switch from vancomycin to Levaquin preparations in anticipation of further outpatient treatment. ASSESSMENT: 1. Acute infection, left big toe with diabetic immunocompromise present with culture showing a [id number] Staphylococcus aureus with sensitivity extending to the fluoroquinolones, which will be tried since it will be easier to treat at home with an oral preparation other than vancomycin. 2. Chronic diabetes mellitus, insulin dependent, poorly controlled, with elevated hemoglobin A1c, requiring further adjustment for treatment options. 3. Chronic obstructive pulmonary disease. 4. Chronic back pain secondary to fractures of T12, L1, and L2 after a fall. 5. History of gastroesophageal reflux disease. 6. History of hyperlipidemia. 7. History of hypertension. 8. History of diverticulosis, stable. 9. History of recurrent pancreatitis in the past with last hospitalization in 2016. 10. History of hepatitis C. 11. Peripheral neuropathy secondary to diabetes. 12. History of left shoulder infection in 2007. PLAN: Await lower extremity arterial Doppler exam checking for ischemic conditions contributing to the ulceration and which may slow healing. Continue with localized treatment options. We will discontinue the vancomycin and start Levaquin 500 mg daily IV today and switch to p.o. maybe by tomorrow and continue with outpatient therapy at home. Will suggest close followup with Dr. Alexis in the clinic who may refer the patient eventually to Dr. Hoyos in surgical clinic for possible debridement to assist with ongoing healing processes. Increase activity today and observe with increasing dosings of insulin. Suggest 2/3 of long-acting insulin in the morning and maybe 1/3 in the evening to assist with lowering the hemoglobin A1c. If he is on very large doses of short-acting required for sliding scale, then consider increasing the long-acting proportionately to assist with ongoing control under Dr. Alexis' good advice and management. #[id number] [facility]
--- NOTE | 2017-04-14 14:32 | US ---
Study: Arterial doppler sonogram of the left lower extremity arteries. Indication: left big toe ulceration. Vascular compromise? Technique: Sonographic evaluation of the left lower extremity arteries performed. Findings/impression: No occluded left lower extremity arteries or elevated peak systolic flow velocities to indicate high-grade stenosis. Arterial waveforms are multiphasic throughout the left lower arteries with the exception of the dorsalis pedis artery which demonstrates a monophasic waveform. Electronically signed by: Michael Freeman MD 04/14/2017 2:30 PM CDT
[2017-04-14] MEDS: PRAVASTATIN SODIUM 20 MG TAB PO SCH (21:11)
[2017-04-14] MEDS: AMITRIPTYLINE HCL 25 MG TAB PO SCH (21:11)
[2017-04-14] MEDS: ZOLPIDEM TARTRATE 10 MG TAB PO SCH (21:11)
[2017-04-14] MEDS: METOPROLOL SUCCINATE XL 50 MG TAB PO SCH (21:11)
[2017-04-14] MEDS ORDERED: FUROSEMIDE INJ 20 MG/2 ML VIAL IV ONE (22:40)
[2017-04-14] MEDS ORDERED: TAMSULOSIN 0.4 MG CAP ONE (22:58)
[2017-04-14] MEDS: TAMSULOSIN 0.4 MG CAP PO SCH (23:05)
[2017-04-15] MEDS: HYDROmorphone HCL INJ 2 MG/ML VIAL IV PRN ×2 (02:10→08:25)
[2017-04-15] MEDS ORDERED: POTASSIUM CHLORIDE 10 MEQ TAB PO SCH (07:30)
[2017-04-15] MEDS: INSULIN LISPRO 100 UNITS/ML PEN SUBCU SCH (07:38)
[2017-04-15] MEDS ORDERED: LISINOPRIL 10 MG TAB ONE (07:58)
[2017-04-15] MEDS ORDERED: FUROSEMIDE 40 MG TAB ONE (07:59)
[2017-04-15] MEDS ORDERED: levoFLOXacin 500MG IV 100 ML IVPB ONE (08:00)
[2017-04-15] MEDS ORDERED: INSULIN DETEMIR 100 UNITS/ML PEN SUBCU SCH (08:25)
[2017-04-15] MEDS: TAMSULOSIN 0.4 MG CAP PO SCH (08:27)
[2017-04-15] MEDS: CITALOPRAM HBR 20 MG TAB PO SCH (08:30)
[2017-04-15] MEDS: CHLORHEXIDINE GLUCONATE 4 % 15 ML UD TOP SCH (08:34)
[2017-04-15] MEDS ORDERED: LISINOPRIL 10 MG TAB PO SCH (09:00)
[2017-04-15] MEDS ORDERED: FUROSEMIDE 40 MG TAB PO SCH (09:00)
[2017-04-15] MEDS ORDERED: KETOROLAC TROMETHAMINE INJ 30 MG/ML VIAL IV ONE (09:18)
[2017-04-15] MEDS: ENOXAPARIN SODIUM 40 MG/0.4 ML SYG SUBCU SCH (10:01)
[2017-04-15] MEDS ORDERED: KETOROLAC TROMETHAMINE INJ 30 MG/ML VIAL ONE (10:23)
[2017-04-15 11:04] VITALS: BP 115/68; TEMP 97.1; O2SAT 95
--- NOTE | 2017-04-19 11:56 | DS ---
SUPERVISING PHYSICIAN: Beau Weston MD DISCHARGE DIAGNOSIS: 1. Acute infection of left big toe with diabetic immunocompromise present with culture showing a enb-jmomaovmzba-pnuiwjkwa Staphylococcus aureus with sensitivity extending to the fluoroquinolones. 2. Chronic diabetes mellitus, insulin dependent, poorly controlled, with elevated hemoglobin A1c. 3. Chronic obstructive pulmonary disease. 4. Chronic back pain secondary to fractures of T12, L1, and L2 after a fall. 5. History of gastroesophageal reflux disease. 6. History of hyperlipidemia. 7. History of hypertension. 8. History of diverticulosis, stable. 9. History of recurrent pancreatitis in the past with last hospitalization in 2016. 10. History of hepatitis C. 11. Peripheral neuropathy secondary to diabetes. 12. History of left shoulder infection in 2007. HISTORY OF PRESENT ILLNESS: Mr. Alexander is a 56-year-old, male patient that has a history of diabetes who presented to the Emergency Department on date of admission with complaint of left toe ulceration that had been ongoing for about a week and had failed to improve with any over-the- counter home remedy treatments. The patient notes the pain had started to extend up into his foot and into the ankle and he was having some purulent looking drainage. In the Emergency Department prior to admission, x-ray was completed of the left toe and foot and per radiologic interpretation showed there was soft tissue swelling about the first digit with questionable subcutaneous emphysema along the medial margin, but no acute fracture. There was mild osteoarthritis within the first metatarsophalangeal joint, but no mention of osteomyelitis. Laboratory studies showed he had a normal white count of 10.8 with an elevated neutrophil count. He also had a blood sugar of 490 on admission with potassium 4.8. Given uncontrolled diabetes and ongoing cellulitis of the left great toe, Dr. Stern, Emergency Room physician, requested the patient be admitted to the hospital for initiation of antibiotic therapy to include vancomycin pending cultures. The patient was admitted in stable condition. LABORATORY: White count on admission was 10.8. At discharge, it was 11.7. Hemoglobin on discharge was 13.1 and hematocrit 39.9, platelet count 235,000. Differential remained within normal limits prior to discharge. Chemistries initially on admission showed electrolytes with a sodium 132, glucose 490, potassium 4.8, BUN 20, creatinine 1.17. Liver functions were all within normal limits. Hemoglobin A1c was 15.1. After treatment, IV fluids and better control of his blood sugars, prior to discharge, his electrolytes had normalized except for a slightly low sodium at 132. Potassium 4.1, glucose still remained slightly elevated ranging from initially 490 on admission. After treatment, it was 202 to 288. MICROBIOLOGY: Wound culture of the left great toe showed staph aureus that was non-MRSA with sensitivity to Levaquin. RADIOLOGY: Foot x-ray of the left foot per radiologic interpretation showed soft tissue swelling of the first digit with questionable subcutaneous emphysema along the medial margin. No periosteitis, no acute fracture and mild osteoarthritis of the first MTP joint. Chest x-ray on admission per radiologic interpretation showed no acute pulmonary disease. He also had a lower extremity Doppler study done of the left lower extremity arteries and per radiologic interpretation, there were no occluded left lower extremity arteries or elevated peak systolic flow velocities to indicate high grade stenosis. HOSPITAL COURSE: Mr. Alexander was admitted as noted on 04/12/17 for both elevated blood sugar and ulceration as noted above in history of present illness to the left great toe. He was initiated on antibiotics including vancomycin per pharmacy protocol with cultures after completion showing to be non-MRSA with sensitivity pattern sensitive to Levaquin. He did show good improvement and after cultures were back, he was transitioned to Levaquin. His blood sugars were fairly well controlled with Levemir and sliding scale, diet and fluids. On the morning of discharge, the patient was ambulating and showed good improvement in the area of the toe and was tolerating Levaquin. It was therefore felt that the patient was stable enough to be discharged to continue with outpatient treatment plan. He was provided wound management with Hibiclens cleansing at least twice a day. PLAN: The patient was discharged on 04/15/17 with instructions to have close clinical followup with his primary care provider, Dr. Alexis as scheduled. He was to resume his home medications as directed. He was instructed to take his Toujeo as directed until he was seen in followup with Dr. Alexis. Increase was up to 95 units from 80 units daily. He was to check his blood sugars before each meal and if his blood sugar was greater than 300, to take his normal 30 units of insulin plus 5 units for a total of 35. If his blood sugar was less than 250, he was to take his normal dose as directed. He was to check his blood sugar at bedtime as well and, again, if greater than 250, to give himself 5 units of insulin. If less than 250, he was to eat a snack and check it in the morning. Wound care was instructed, to cleanse with Hibiclens at least twice a day and keep the wound covered with clean dressings. He was encouraged to wear open-toed shoes and to never go barefooted. He was to keep his foot elevated as much as possible. He was told to return to the hospital should he have any worsening of the area in question or increase in pain, drainage, or swelling or any other symptoms that were concerning. At discharge, he had a followup to be scheduled. DISCHARGE MEDICATIONS: 1. Hibiclens dilution as directed. 2. Motrin 400 mg 3 times daily, #30 for pain. 3. Toujeo 90 units subcutaneously daily as directed until see in followup. 4. Levaquin 500 mg twice daily, #28. 5. Probiotic of choice. DIET AT DISCHARGE: He was highly encouraged to follow a strict ADA 1800 calorie diet. ACTIVITY: Increase as tolerated as directed with utilization of open-toed shoe and to keep his foot elevated when in bed or sitting in the chair. CONDITION AT DISCHARGE: Stable and improved. #[id number] [facility]
== END 2017-04-15 10:57 | disposition home or self-care (01) | DRG 603 ==
LOC: ER 12:53 → MS 16:19
PROVIDERS: ADMIT Nurse Practitioner Family; ATTEND Nurse Practitioner Family
DX: L03.032 Cellulitis of left toe (principal); E11.621 Type 2 diabetes mellitus with foot ulcer; L97.529 Non-pressure chronic ulcer of other part of left foot with unspecified severity; J44.9 Chronic obstructive pulmonary disease, unspecified; E11.65 Type 2 diabetes mellitus with hyperglycemia; B19.20 Unspecified viral hepatitis C without hepatic coma; M19.072 Primary osteoarthritis, left ankle and foot; K21.9 Gastro-esophageal reflux disease without esophagitis; E78.5 Hyperlipidemia, unspecified; I10 Essential (primary) hypertension; G89.29 Other chronic pain; M54.5 Low back pain; E11.42 Type 2 diabetes mellitus with diabetic polyneuropathy; B95.61 Methicillin susceptible Staphylococcus aureus infection as the cause of diseases classified elsewhere; E66.9 Obesity, unspecified; F17.210 Nicotine dependence, cigarettes, uncomplicated; Z79.4 Long term (current) use of insulin; Z88.5 Allergy status to narcotic agent; Z79.899 Other long term (current) drug therapy; Z86.14 Personal history of Methicillin resistant Staphylococcus aureus infection; Z68.31 Body mass index [BMI] 31.0-31.9, adult

== ENCOUNTER 2017-06-06 14:18 | Emergency (ER) | payer MEDICARE, MEDICAID ==
[2017-06-06] MEDS ORDERED: HYDROcodone 10MG/APAP 325MG 1 EA TAB PO ONE (14:49)
[2017-06-06 14:53] VITALS: TEMP 98.4
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
[2017-06-06 16:00] VITALS: BP 129/90; O2SAT 95
== END 2017-06-06 16:00 | disposition home or self-care (01) ==
LOC: ER 14:18
DX: S13.4XXA Sprain of ligaments of cervical spine, initial encounter (principal); S39.012A Strain of muscle, fascia and tendon of lower back, initial encounter; I10 Essential (primary) hypertension; E11.9 Type 2 diabetes mellitus without complications; Z88.6 Allergy status to analgesic agent; Z79.4 Long term (current) use of insulin; Z79.899 Other long term (current) drug therapy; Z87.891 Personal history of nicotine dependence; V49.49XA Driver injured in collision with other motor vehicles in traffic accident, initial encounter; Y92.410 Unspecified street and highway as the place of occurrence of the external cause

== ENCOUNTER → 2017-07-17 | Outpatient (CLI) | payer MEDICARE, MEDICAID | END | disposition home or self-care (01) | LOC: GMAJ 10:38 | PROVIDERS: ATTEND Family Medicine | DX: E11.65 Type 2 diabetes mellitus with hyperglycemia (principal); Z12.5 Encounter for screening for malignant neoplasm of prostate; E78.00 Pure hypercholesterolemia, unspecified; I10 Essential (primary) hypertension | CPT/HCPCS: 84443; G0103 ==

== ENCOUNTER → 2017-08-17 | Outpatient (CLI) | payer MEDICARE, MEDICAID | END | disposition home or self-care (01) | LOC: RESP 08:24 | PROVIDERS: ATTEND Orthopaedic Surgery | DX: Z01.818 Encounter for other preprocedural examination (principal) ==

== ENCOUNTER 2017-08-30 05:51 | Day surgery (SDC) | payer MEDICARE, MEDICAID ==
--- NOTE | 2017-08-28 13:11 | HP ---
CHIEF COMPLAINT: Right shoulder pain. HISTORY OF PRESENT ILLNESS: Nathan is a 57-year-old male with a history of pain in the shoulder. We have seen him in the past and he has had injections. He denies any trauma associated with this, denies any radiation of pain and denies any neurologic symptoms. Because of his ongoing pain and failure of conservative measures, he has requested operative intervention. After discussing the risks, benefits and alternatives to that, the patient has given informed consent. PAST SURGICAL HISTORY: 1. Lumbar fusion. 2. Rotator cuff repair. MEDICATIONS: 1. Ambien. 2. Pravachol. 3. Toprol. 4. Lisinopril. 5. Amitriptyline. 6. Humalog. ALLERGIES: NO KNOWN DRUG ALLERGIES. CODE STATUS: Full code. IMMUNIZATIONS: Up to date. SOCIAL HISTORY: The patient does not drink or use any illicit drugs. He does smoke. FAMILY HISTORY: None pertinent to today's complaint. REVIEW OF SYSTEMS: Negative except as indicated in the History of Present Illness. PHYSICAL EXAMINATION: VITAL SIGNS: Blood pressure 164/97. Pulse 79. Height 5'9". Weight 255. MENTAL STATUS: The patient is awake, alert, and is able to give a good history and participate in the physical. The patient is oriented to person, place and time. SKIN: Normal tone and turgor. MUSCULOSKELETAL: He is exquisitely tender over the acromioclavicular joint and has relatively minor tenderness over the subacromial space. He has prominent osteophytes at the acromioclavicular joint. Sensation is intact in the arm. It is warm and well perfused. Strength is 5/5. IMAGING: X-rays show no acute bony abnormality. ASSESSMENT: 1. Impingement. PLAN: The plan at this point is for Corky procedure. We have discussed the risks, benefits, and alternatives to that and we have discussed the potential for need of rotator cuff repair. However, his MRI does not demonstrate a tear. He has given informed consent. #[id number] [facility]
[2017-08-30] MEDS ORDERED: ceFAZolin SODIUM 1 GM VIAL ONE ×2 (06:14→09:35)
[2017-08-30] MEDS ORDERED: LACTATED RINGERS 1,000 ML ONE (06:14)
[2017-08-30] MEDS ORDERED: SODIUM CHL 0.9% 100ML MINI-BAG 100 ML IVPB ONE (06:14)
[2017-08-30] MEDS ORDERED: PROPOFOL 200 MG/20 ML VIAL IV ONE (07:00)
[2017-08-30] MEDS ORDERED: NEOSTIGMINE METHYLSULFATE 1 MG/ML ML IV ONE (07:00)
[2017-08-30] MEDS ORDERED: METOCLOPRAMIDE HCL INJ 10 MG/2 ML VIAL ONE (07:00)
[2017-08-30] MEDS ORDERED: DEXAMETHASONE INJ 10 MG/ML VIAL ONE (07:00)
[2017-08-30] MEDS ORDERED: BUPIVACAINE 0.25% INJ 30 ML VIAL INJ ONE (09:06)
[2017-08-30] MEDS ORDERED: MIDAZOLAM INJ 2 MG/2 ML VIAL ONE (09:24)
[2017-08-30] MEDS ORDERED: fentaNYL CITRATE INJ 50 MCG/ML AMP ONE (09:25)
[2017-08-30] MEDS ORDERED: LIDOCAINE 2 % GEL 5 ML TUBE TOP ONE (09:26)
[2017-08-30] MEDS ORDERED: ROCURONIUM BROMIDE 10 MG/ML VIAL ONE (09:26)
[2017-08-30] MEDS ORDERED: VANCOMYCIN HCL INJ 1,000 MG VIAL IVPB ONE (09:35)
[2017-08-30] MEDS ORDERED: BUPIVACAINE 0.25% W/EPI 50 ML VIAL INJ ONE (09:44)
[2017-08-30] MEDS ORDERED: LIDOCAINE 1% W/ EPINEPHRINE 20 ML VIAL INJ ONE (09:45)
[2017-08-30 13:57] VITALS: BP 122/78; TEMP 98; O2SAT 98
--- NOTE | 2017-09-01 09:09 | OP ---
DATE OF PROCEDURE: 08/30/17 PREOPERATIVE DIAGNOSIS: 1. Impingement with arthritis at the acromioclavicular joint. POSTOPERATIVE DIAGNOSIS: 1. Impingement with arthritis at the acromioclavicular joint. PROCEDURE: 1. Subacromial decompression. 2. Distal clavicle resection. SURGEON: Blu Dc MD. URBAN DESIGNER: Mp Wu CST, -Rony. ANESTHESIA: General. COMPLICATIONS: None. FINDINGS: 1. Osteophytes and advanced arthritis at the acromioclavicular joint. 2. Hypertrophic bursitis. INDICATION: Mr. Alexander has a history of severe shoulder pain. He has had pain that has begun to limit his activities. He had any MRI and it did not show any evidence of rotator cuff pathology. We had discussed injections, physical therapy and other options which he has attempted.. After discussing the risks, benefits and alternatives to operative therapy, the patient gave informed consent. PROCEDURE: The patient was brought to the Operating Room and placed in the supine position. General anesthesia was induced and the patient was placed in the beach chair position. The arm and shoulder were then sterilely prepped and draped. Following prepping and draping, The shoulder was approached through an incision over the lateral border of the acromion. Full thickness skin flaps were developed and a split between the anterior and middle heads of the deltoid was made. Bursectomy was performed and the rotator cuff was examined. There was no obvious defect in the rotator cuff. Attention was then focused on the acromioclavicular joint. Following identification of the acromioclavicular joint, full thickness periosteal flaps were developed. After exposure of the acromioclavicular joint, the distal 1 cm of the clavicle was resected and care was taken to ensure complete excision of all bony osteophytes and removal of bone. The periosteal flaps were reapproximated. The wound was thoroughly irrigated and closure of the skin was performed with a combination of running and interrupted subcuticular stitches. Sterile dressing was placed. The patient was placed in a sling, awoken from anesthesia and taken to Recovery. POSTOPERATIVE INSTRUCTIONS: The patient will be in his sling and followup with us in two days. We will begin gentle range of motion next week. #[id number] [facility]
== END 2017-08-30 14:00 | disposition home or self-care (01) ==
LOC: AMB 05:51
PROVIDERS: ATTEND Orthopaedic Surgery
DX: M75.41 Impingement syndrome of right shoulder (principal); M13.811 Other specified arthritis, right shoulder; F17.200 Nicotine dependence, unspecified, uncomplicated; I10 Essential (primary) hypertension; I25.10 Atherosclerotic heart disease of native coronary artery without angina pectoris; K21.9 Gastro-esophageal reflux disease without esophagitis; J44.9 Chronic obstructive pulmonary disease, unspecified; Z88.8 Allergy status to other drugs, medicaments and biological substances; E11.65 Type 2 diabetes mellitus with hyperglycemia; Z79.4 Long term (current) use of insulin; Z79.899 Other long term (current) drug therapy
CPT/HCPCS: 00450; 23120; 36416; 82948; J0690; J1100; J2250; J2710; J2765; J3010; J3370; J3490; J7050; J7120

== ENCOUNTER → 2018-01-02 | Outpatient (CLI) | payer MEDICARE, MEDICAID | LOC: GMAJ 12:11 | PROVIDERS: ATTEND Family Medicine | DX: M10.9 Gout, unspecified (principal) ==

== ENCOUNTER → 2018-03-07 | Outpatient (CLI) | payer MEDICARE, MEDICAID ==
--- NOTE | 2018-03-07 16:17 | CT ---
EXAM DESCRIPTION: Head CLINICAL HISTORY: MIGRAINE W/O AURA, INTRACTABLE,W STATUS MIGRAINOSUS COMPARISON: August 09, 2010 TECHNIQUE: Noncontrast transaxial CT images of the head are obtained from base to vertex. This exam was performed according to our departmental dose-optimization program, which includes automated exposure control, adjustment of the mA and/or kV according to patient size and/or use of iterative reconstruction technique. FINDINGS: The midline structures are not displaced. The sulci are age appropriate. The lateral, third, and fourth ventricles are normal in size, shape, and anatomic positioning. There is no evidence of mass, mass effect, hydrocephalus, or acute intracranial hemorrhage. No abnormal extra axial fluid collections are seen. Normal ordoñez-white differentiation is seen. The visualized bone windows show no depressed skull fracture or significant abnormality. Mild mucosal thickening is seen in the ethmoid and maxillary sinuses.. IMPRESSION: 1. No acute abnormality is seen on noncontrast CT of the head. Electronically signed by: Son Dobbs MD 03/07/2018 4:16 PM CDT
== END ==
LOC: CT 15:36
PROVIDERS: ATTEND Family Medicine
DX: G43.011 Migraine without aura, intractable, with status migrainosus (principal)

== ENCOUNTER 2018-04-09 11:45 | Inpatient (IN) | payer MEDICARE, MEDICAID ==
--- NOTE | 2018-04-09 12:08 | HP ---
SUPERVISING PHYSICIAN: Yaz Schaeffer MD CHIEF COMPLAINT: Abdominal pain. HISTORY OF PRESENT ILLNESS: This is a 57-year-old male patient who went to his primary care physician's office, Dr. Alexis, with complaints of nausea, but no vomiting. He states for the last 3 days or so, he has really not felt well at all. He has eaten some broth, but essentially had a decrease in appetite. He notes the pain pretty much epigastric and spreads across to the right and to the left. The patient does have a history of pancreatitis in the past and states he was admitted as recently as a year ago for pancreatitis. He went to the office and had a workup which included labs. He was noted to have a white count of 15,000 with borderline normal hemoglobin of 17.5. Platelet count was normal at 250. Urinalysis was unremarkable. Chemistry showed a glucose of 335 , calcium 10.1. Otherwise chemistry was unremarkable. He also had amylase and lipase done and amylase was 148 and lipase was 174. Dr. Alexis called me for direct admission with the need for CT of the abdomen and pelvis upon arrival. At the time of examination, the patient is in some mild to moderate distress secondary to the pain. He is not complaining of any shortness of breath. He does complain of nausea currently. PAST MEDICAL HISTORY: 1. Chronic obstructive pulmonary disease. 2. Type 2 diabetes mellitus, somewhat uncontrolled recently. He takes insulin for this. 3. History of T12, L1, L2 fractures after a fall. 4. Gastroesophageal reflux disease. 5. Hyperlipidemia. 6. Hypertension. 7. Obstructive sleep apnea for which he is noncompliant using his CPAP. 8. Diverticulosis. 9. Hepatitis C, which has been treated and he states he is "cleared." 10. Chronic back pain. 11. Peripheral neuropathy. 12. Septic left shoulder which required 2 months of IV vancomycin. 13. History of anemia. PAST SURGICAL HISTORY: 1. Left great toe amputation secondary to osteomyelitis. 2. Bilateral inguinal hernia repairs. 3. Lumbar spine repair. 4. Left orchiopexy. 5. Right and left rotator cuff surgeries. 6. Colonoscopy showed shows diverticulosis as well as benign polyps. 7. Stress test in 1008 which was reportedly normal. CURRENT MEDICATIONS: Please see the medication reconciliation record. ALLERGIES: MORPHINE. FAMILY HISTORY: Father healthy. Brother at age 41 which he states was from an oven dry cleaner helper ingestion as a child and he continued to have problems throughout his years of living. Mother at age 47 of myocardial infarction. SOCIAL HISTORY: The patient smokes one pack of cigarettes per day. He does not really drink any alcohol and no illicit drugs. However he does have a history of using amphetamines, barbiturates, cocaine and marijuana in the past. He is and has 2 children. REVIEW OF SYSTEMS: CONSTITUTIONAL: No fever or chills. No recent weight loss or weight gain. HEENT: No headaches, vision changes, ear pain, nasal congestion or throat pain. RESPIRATORY: No cough, hemoptysis or pleuritic chest pain. CARDIOVASCULAR: No chest pain, palpitations or peripheral edema. GASTROINTESTINAL: Positive for nausea, no vomiting or diarrhea. Positive for constipation. Positive for abdominal pain. GENITOURINARY: No dysuria, frequency or flank pain. HEMATOLOGIC: No easy bruising and no transfusion reaction. MUSCULOSKELETAL: Positive for chronic back pain. No muscle cramps or joint pain. ENDOCRINE: No polydipsia, polyuria or polyphagia. No heat or cold intolerance. He has noted his sugars being uncontrolled. NEUROLOGIC: No syncope, paresthesias or seizures. PHYSICAL EXAMINATION: VITAL SIGNS: Blood pressure 156/98. Heart rate 95. Respiratory rate 18. Temperature 98.4. Oxygen saturation 97%. GENERAL: Mr. Alexander is a 57-year-old male patient who appears uncomfortable at this time. HEENT: Normocephalic, atraumatic. Pupils are equal and reactive. No nasal drainage. Throat with moist mucosa. NECK: Supple. Midline trachea. No jugular venous distention. CHEST: Symmetrical with equal rise and fall of the chest with inspiration and expiration. Lung sounds are diminished in the bases, otherwise clear to auscultation bilaterally. CARDIOVASCULAR: Regular rate and rhythm. Normal S1, S2. ABDOMEN: Obese, soft. Positive bowel sounds, but they are hypoactive. He does not have any right lower quadrant tenderness to palpation. He does have right upper quadrant tenderness to palpation, epigastric tenderness to palpation as well as left upper quadrant tenderness to palpation and left lower quadrant tenderness to palpation. There is no rebound tenderness. As stated before, the abdomen is soft and not rigid. GENITOURINARY: Deferred. EXTREMITIES: Lower extremities with pulses 2+. Capillary refill is less than 2 seconds. LABORATORY: Labs as discussed in history of present illness. ASSESSMENT: 1. Abdominal pain with evidence of potential recurrent pancreatitis. 2. Hypertension. 3. Diabetes mellitus, uncontrolled. 4. History of obstructive sleep apnea with medical noncompliance, not using his CPAP. 5. Continuous nicotine dependency with chronic obstructive pulmonary disease without acute exacerbation. 6. Chronic back pain. 7. History of hepatitis C which reportedly is resolved. PLAN: At this time, we will proceed with CT scan of the abdomen and pelvis with contrast. Based on these results, we will determine his antibiotic therapy. I placed him on 200 mL per hour of normal saline. He is nauseated, so I ordered some Zofran as well as having some pain, so I have ordered some Dilaudid as he is allergic to morphine. He has not had a cholecystectomy, so depending on what the CT scan shows, he may require a gallbladder sonogram. I am going to hold off on DVT prophylaxis because if he does have an aggressive pancreatitis, I do not want it to become hemorrhagic. I will place him on sliding scale insulin for now and depending on what his blood sugar shows he may require a drip to more aggressively treat his high blood sugars. Labs that were done at the office showed that his sugar was 336 and he stated it had been high. He may benefit from a more tightly controlled glucose. We will recheck labs in the morning as well and I have ordered these already. #[id number] [facility]
[2018-04-09] MEDS ORDERED: GLUCAGON INJ 1 MG VIAL SUBCU PRN (12:44)
[2018-04-09] MEDS ORDERED: DEXTROSE 50% 25 GM/50 ML SYG IV PRN (12:44)
[2018-04-09] MEDS ORDERED: IV SET AND CAP CHANGE INJ INJ SCH (13:00)
[2018-04-09] MEDS: HYDROmorphone HCL INJ 2 MG/ML VIAL IV PRN ×3 (13:07→21:28)
[2018-04-09] MEDS: SODIUM CHLORIDE 0.9% 1000ML 1,000 ML IVS PRN ×2 (13:07→19:06)
--- NOTE | 2018-04-09 14:58 | CT ---
Study: CT abdomen and pelvis. Indication: abdominal pain, history of pancreatitis Technique: Venous phase CT imaging of the abdomen and pelvis obtained after intravenous administration of contrast. This exam was performed according to our departmental dose-optimization program, which includes automated exposure control, adjustment of the mA and/or kV according to patient size and/or use of iterative reconstruction technique. Comparison: November 12, 2016. Findings: Hepatic steatosis and hepatomegaly. Lower chest, gallbladder, spleen, adrenal glands, kidneys, and bladder unremarkable. Very subtle inflammation suspected about the pancreatic head concerning for acute pancreatitis. Several punctate calcifications within the pancreatic head. Colonic diverticulosis without diverticulitis. Prior appendectomy suspected. Stomach and small bowel unremarkable. Atherosclerosis aorta. Degenerative changes of the spine noted. Partial visualization of a dorsal column stimulator device. Impression: Subtle findings which can be seen with acute on chronic pancreatitis. No peripancreatic fluid collection. Additional findings as above. Electronically signed by: Michael Freeman MD 04/09/2018 2:00 PM CDT
[2018-04-09] MEDS: ONDANSETRON INJ 4 MG/2 ML VIAL IV PRN (17:06)
[2018-04-09] MEDS: INSULIN LISPRO 100 UNITS/ML PEN SUBCU SCH (18:04)
[2018-04-09] MEDS ORDERED: PRAVASTATIN SODIUM 20 MG TAB ONE (19:54)
[2018-04-09] MEDS ORDERED: LISINOPRIL 10 MG TAB ONE (19:54)
[2018-04-09] MEDS ORDERED: AMITRIPTYLINE HCL 25 MG TAB ONE (19:54)
[2018-04-09] MEDS ORDERED: NON-FORMULARY MEDICATION 1 EA MIS (Pravastatin Sodium [Pravachol] 40 MG) PO SCH (21:00)
[2018-04-09] MEDS ORDERED: AMITRIPTYLINE HCL 100 MG PO SCH (21:00)
[2018-04-09] MEDS ORDERED: NON-FORMULARY MEDICATION 1 EA MIS (Lisinopril [Lisinopril] 40 MG) PO SCH (21:00)
[2018-04-09] MEDS: ZOLPIDEM TARTRATE 10 MG TAB PO SCH (21:22)
[2018-04-09] MEDS: METOPROLOL SUCCINATE XL 50 MG TAB PO SCH (21:22)
[2018-04-10] MEDS: SODIUM CHLORIDE 0.9% 1000ML 1,000 ML IVS PRN ×5 (00:13→21:16)
[2018-04-10] MEDS: INSULIN LISPRO 100 UNITS/ML PEN SUBCU SCH ×4 (00:31→18:17)
[2018-04-10] MEDS: HYDROmorphone HCL INJ 2 MG/ML VIAL IV PRN ×5 (02:09→19:42)
[2018-04-10] MEDS: ONDANSETRON INJ 4 MG/2 ML VIAL IV PRN ×2 (02:10→15:21)
[2018-04-10] MEDS ORDERED: cloNIDine HCL 0.1 MG TAB PO ONE (03:15)
[2018-04-10] MEDS ORDERED: CITALOPRAM HBR 20 MG TAB ONE (07:11)
[2018-04-10] MEDS ORDERED: CITALOPRAM HYDROBROMIDE 40 MG PO SCH (09:00)
--- NOTE | 2018-04-10 10:51 | PN ---
SUPERVISING PHYSICIAN: Yaz Schaeffer MD DATE: 04/10/18 SUBJECTIVE: The patient states he feels a little bit better than he did yesterday, but still not back to his baseline. He has been NPO and still does not really feel like eating much. OBJECTIVE: VITAL SIGNS: Blood pressure 149/90. Heart rate 74. Respiratory rate 18. Temperature 97.5. Oxygen saturation 97%. GENERAL: Mr. Alexander is a 57-year-old male patient in no distress. NEUROLOGIC: Alert and oriented. LUNGS: Clear to auscultation bilaterally. CARDIOVASCULAR: Regular rate and rhythm. Normal S1, S2. ABDOMEN: Soft. He still has some tenderness to palpation primarily in the right upper quadrant. Positive bowel sounds. LABORATORY: White count 10.9, hemoglobin 15.9, platelet count 212. Chemistry unremarkable. ASSESSMENT: 1. Abdominal pain secondary to pancreatitis. 2. Hypertension, uncontrolled. 3. Diabetes mellitus. 4. Chronic back pain. 5. Obstructive sleep apnea. PLAN: The patient is walking in the [place] this morning. He still has some discomfort. We will continue his NPO status and continue IV fluids. His white count is 10.9, but there is no left shift. Current recommendations regarding pancreatitis do not indicate antibiotic therapy, therefore will proceed without antibiotics, and continue current treatment with aggressive IV fluids and pain management. If he improves overnight, he can start on clear liquids tomorrow morning. We will repeat labs in the morning as well. #[id number] [facility]
[2018-04-10] MEDS: LISINOPRIL 10 MG TAB PO SCH (21:10)
[2018-04-10] MEDS: ZOLPIDEM TARTRATE 10 MG TAB PO SCH (21:10)
[2018-04-10] MEDS: METOPROLOL SUCCINATE XL 50 MG TAB PO SCH (21:11)
[2018-04-10] MEDS: PRAVASTATIN SODIUM 20 MG TAB PO SCH (21:11)
[2018-04-10] MEDS: AMITRIPTYLINE HCL 25 MG TAB PO SCH (21:11)
[2018-04-11] MEDS: HYDROmorphone HCL INJ 2 MG/ML VIAL IV PRN ×6 (00:01→22:03)
[2018-04-11] MEDS: INSULIN LISPRO 100 UNITS/ML PEN SUBCU SCH ×5 (01:05→21:11)
[2018-04-11] MEDS: SODIUM CHLORIDE 0.9% 1000ML 1,000 ML IVS PRN ×4 (02:36→21:03)
[2018-04-11] MEDS: SODIUM CHLORIDE 0.9% (FLUSH) 10 ML SYG IV PRN ×3 (08:59→18:06)
[2018-04-11] MEDS: CITALOPRAM HBR 20 MG TAB PO SCH (08:59)
--- NOTE | 2018-04-11 11:56 | PN ---
SUPERVISING PHYSICIAN: Yaz Schaeffer MD DATE: 04/11/18 SUBJECTIVE: The patient is up and walking in the hallways. He has agreed to try clear liquid diet as he has not had anything to eat and he has only required one antiemetic overnight as well as one dose of pain medications. He has no complaints of chest pain, shortness of breath, nausea or vomiting. There is some mild discomfort especially in the right upper quadrant, but he says it does seem to be improving. OBJECTIVE: VITAL SIGNS: Afebrile. Heart rate 102. Blood pressure 131/87. Respiratory rate 20. O2 saturation 94% on room air. RESPIRATORY: Essentially clear to auscultation bilaterally. CARDIAC: Regular rate and rhythm. GASTROINTESTINAL: Abdomen is soft, nondistended. Mild tenderness noted to the right upper quadrant. Bowel sounds are positive. EXTREMITIES: No cyanosis, clubbing or edema. NEUROLOGIC: Awake, alert and oriented times three. LABORATORY: CBC is basically within normal limits. Blood sugars have run between 104 and 180. Electrolytes are within normal limits. All other labs and films have been reviewed via the EMR. ASSESSMENT: 1. Abdominal pain secondary to pancreatitis. 2. Hypertension, uncontrolled prior to admission, now controlled during hospitalization. 3. Diabetes mellitus. 4. Chronic back pain. 5. Obstructive sleep apnea. PLAN: We will continue present supportive care. I have advanced his diet to clear liquid and hopefully by morning we can advance to bland diet. I will decrease his IV fluids as he tolerates his diet. Hopefully, his abdominal pain will continue to improve and he can be discharged tomorrow. I will hold on the labs tomorrow as those have normalized for the most part and we will watch him for clinical improvement. Otherwise, we will continue to monitor the patient closely and follow as needed. Dr. Schaeffer is the collaborating physician and available for consultation. #[id number] [facility]
[2018-04-11] MEDS: ONDANSETRON INJ 4 MG/2 ML VIAL IV PRN ×2 (13:55)
[2018-04-11] MEDS: ZOLPIDEM TARTRATE 10 MG TAB PO SCH (20:59)
[2018-04-11] MEDS: AMITRIPTYLINE HCL 25 MG TAB PO SCH (20:59)
[2018-04-11] MEDS: PRAVASTATIN SODIUM 20 MG TAB PO SCH (20:59)
[2018-04-11] MEDS: LISINOPRIL 10 MG TAB PO SCH (20:59)
[2018-04-11] MEDS ORDERED: TEMAZEPAM 15 MG CAP ONE (21:00)
[2018-04-11] MEDS: METOPROLOL SUCCINATE XL 50 MG TAB PO SCH (21:00)
[2018-04-12] MEDS: SODIUM CHLORIDE 0.9% 1000ML 1,000 ML IVS PRN ×2 (03:18→08:11)
[2018-04-12] MEDS: HYDROmorphone HCL INJ 2 MG/ML VIAL IV PRN ×2 (03:31→07:54)
[2018-04-12] MEDS: INSULIN LISPRO 100 UNITS/ML PEN SUBCU SCH (07:35)
[2018-04-12] MEDS ORDERED: ONDANSETRON ODT 8 MG TAB SL PRN (08:25)
[2018-04-12] MEDS ORDERED: traMADol HCL 50 MG TAB PO PRN (08:25)
[2018-04-12] MEDS: CITALOPRAM HBR 20 MG TAB PO SCH (08:56)
[2018-04-12 10:02] VITALS: BP 149/97; TEMP 98.3; O2SAT 95
--- NOTE | 2018-04-12 10:14 | DS ---
SUPERVISING PHYSICIAN: Yaz Schaeffer MD DISCHARGE DIAGNOSIS: 1. Abdominal pain secondary to pancreatitis. 2. Hypertension, uncontrolled prior to admission, now controlled during hospitalization. 3. Diabetes mellitus. 4. Chronic back pain. 5. Obstructive sleep apnea. 6. Tobacco abuse. The patient smokes approximately one pack of cigarettes daily. HISTORY OF PRESENT ILLNESS: This is a 57-year-old male patient who was seen in his primary care physician's office, Dr. Alexis, with complaints of nausea, but no vomiting. He had had the symptoms for approximately 3 days or so. He also had had a very poor appetite. He has a history of pancreatitis in the past and was actually admitted approximately one year ago for pancreatitis. In the office, his workup included labs that showed a white count of 15,000 with a hemoglobin of 17.5, platelet count normal at 250. Urinalysis was unremarkable. Glucose 335, calcium 10.1. Otherwise chemistries were unremarkable. Amylase was 148, lipase 174. Dr. Alexis called the hospital for a direct admission. HOSPITAL COURSE: In the hospital, a CT of the abdomen and pelvis was done. His CT results showed several findings that could be seen with acute on chronic pancreatitis. He was given fluids as well as pain medication of Dilaudid. He was also given antiemetics and Zofran. His home medications were restarted. His WBCs normalized at 10.4. Electrolytes were basically within normal limits. Glucose ran between 78 and 183. He was essentially advanced to a clear liquid diet and tolerated that well although had several complaints of nausea and vomiting with pain, but over the past 24 hours, he has had only minimal complaints. He has had no nausea or vomiting. This morning, he was advanced to a bland diet and tolerated that without any problem. His IV Zofran was changed to p.o. and his Dilaudid was discontinued and he was given tramadol. He has been up and walking in the hallways. He has no abdominal pain and on exam, his abdomen is not tender. He will be discharged today. DISCHARGE PLAN: The patient will be discharged home in stable condition. He is to resume his previous activity. He was strongly encouraged to stop smoking. He is to continue with a bland diet and advance his diet to a normal diet as tolerated. I have given him some Zofran for antiemetics as well as some tramadol for pain. He has a followup appointment with Dr. Alexis on at 1:45 PM. He is to return to the hospital or followup with Dr. Alexis for any problems or complications. DISCHARGE MEDICATIONS: 1. Zolpidem. 2. Metoprolol succinate. 3. Lisinopril. 4. Furosemide. 5. Citalopram. 6. Elavil. 7. Pravastatin. 8. Humalog insulin. 9. Toujeo insulin. 10. Tramadol. 11. Zofran. #[id number] [facility]
== END 2018-04-12 10:47 | disposition home or self-care (01) | DRG 440 ==
LOC: MS 11:45
PROVIDERS: ADMIT Nurse Practitioner; ATTEND Nurse Practitioner Acute Care
PROC: BW210ZZ Computerized Tomography (CT Scan) of Abdomen and Pelvis using High Osmolar Contrast (ICD-10-PCS; principal; 2018-04-09)
DX: K85.90 Acute pancreatitis without necrosis or infection, unspecified (principal); I10 Essential (primary) hypertension; G89.29 Other chronic pain; M54.9 Dorsalgia, unspecified; G47.33 Obstructive sleep apnea (adult) (pediatric); R63.0 Anorexia; J44.9 Chronic obstructive pulmonary disease, unspecified; K21.9 Gastro-esophageal reflux disease without esophagitis; E11.65 Type 2 diabetes mellitus with hyperglycemia; E78.5 Hyperlipidemia, unspecified; E11.43 Type 2 diabetes mellitus with diabetic autonomic (poly)neuropathy; F17.210 Nicotine dependence, cigarettes, uncomplicated; Z79.4 Long term (current) use of insulin; Z91.19 Patient's noncompliance with other medical treatment and regimen; Z88.5 Allergy status to narcotic agent; Z86.19 Personal history of other infectious and parasitic diseases

== ENCOUNTER → 2018-06-20 | Outpatient (CLI) | payer MEDICARE, MEDICAID | LOC: GMAJ 12:22 | PROVIDERS: ATTEND Family Medicine | DX: M10.9 Gout, unspecified (principal) ==

== ENCOUNTER → 2018-09-10 | Outpatient (CLI) | payer MEDICARE, MEDICAID | LOC: LAB.NP 14:48 | PROVIDERS: ATTEND Internal Medicine Infectious Disease | DX: M86.472 Chronic osteomyelitis with draining sinus, left ankle and foot (principal) ==

== ENCOUNTER → 2018-09-17 | Outpatient (CLI) | payer MEDICARE, MEDICAID | LOC: LAB.NP 16:28 | PROVIDERS: ATTEND Internal Medicine Infectious Disease | DX: M86.472 Chronic osteomyelitis with draining sinus, left ankle and foot (principal) ==

== ENCOUNTER → 2018-09-24 | Outpatient (CLI) | payer MEDICARE, MEDICAID | LOC: LAB.NP 16:28 | PROVIDERS: ATTEND Internal Medicine Infectious Disease | DX: M86.472 Chronic osteomyelitis with draining sinus, left ankle and foot (principal) ==

== ENCOUNTER → 2018-11-14 | Outpatient (CLI) | payer MEDICARE, MEDICAID | LOC: LAB.O 19:02 | PROVIDERS: ATTEND Podiatrist Foot & Ankle Surgery | DX: T81.40XA Infection following a procedure, unspecified, initial encounter (principal) ==

== ENCOUNTER → 2018-12-10 | Outpatient (CLI) | payer MEDICARE, MEDICAID | LOC: BFHH 15:55 | PROVIDERS: ATTEND Podiatrist Foot & Ankle Surgery | DX: M86.472 Chronic osteomyelitis with draining sinus, left ankle and foot (principal) ==

== ENCOUNTER → 2019-01-21 | Outpatient (CLI) | payer MEDICARE, MEDICAID | LOC: NC 16:34 | PROVIDERS: ATTEND Internal Medicine Infectious Disease | DX: T81.49XD Infection following a procedure, other surgical site, subsequent encounter (principal); Z79.2 Long term (current) use of antibiotics ==

== ENCOUNTER → 2019-01-28 | Outpatient (CLI) | payer MEDICARE, MEDICAID | LOC: BFHH 18:23 | PROVIDERS: ATTEND Internal Medicine Infectious Disease | DX: T81.49XD Infection following a procedure, other surgical site, subsequent encounter (principal); Z79.2 Long term (current) use of antibiotics ==

== ENCOUNTER → 2019-02-04 | Outpatient (CLI) | payer MEDICARE, MEDICAID | LOC: HHH 16:49 | PROVIDERS: ATTEND Internal Medicine Infectious Disease | DX: T81.49XD Infection following a procedure, other surgical site, subsequent encounter (principal); Z79.2 Long term (current) use of antibiotics ==

== ENCOUNTER 2019-06-22 09:16 | Emergency (ER) | payer MEDICARE, MEDICAID ==
[2019-06-22] MEDS ORDERED: ASPIRIN TABLET 325 MG TAB PO ONE (09:47)
[2019-06-22] MEDS ORDERED: SODIUM CHLORIDE 0.9% (FLUSH) 10 ML SYG IV PRN (09:47)
[2019-06-22] MEDS ORDERED: ONDANSETRON INJ 4 MG/2 ML VIAL IV ONE (09:50)
[2019-06-22] MEDS ORDERED: SODIUM CHLORIDE 0.9% 1000ML 1,000 ML IVS PRN (09:50)
--- NOTE | 2019-06-22 09:55 | ED.PDOC ---
History of Present Illness - General Stated Complaint: chest pain Time Seen by Provider: 06/22/19 09:28 Source: patient, Vital Signs reviewed Exam Limitations: no limitations - History of Present Illness Initial Comments: the patient is a 59-year-old white male who presents to the ED with complaints of chest pain and headache. He states that his pain started approximately 3 days ago. He states that he has had problems with his blood pressure off and on for some time. He admits to having a high heart rate as well. He denies any recent vomiting. He does admit to being nauseated. He states that he has had intermittent shortness of breath typically with exertion. He denies any recent edema. He states that it feels like an elephant is sitting on his chest. He rates the pain as an 8/10 in intensity. There is no radiation of the pain. He also states that he has a headache that is an 8/10 in intensity. He states that he has chronic headaches and chronic pain. He denies recurrent for visits to this ER for headache or pain control. Patient states that he is cared for by Dr. Lopez in [place] and also by medical care administrator in [place]. He states that he has had stress testing approximately 3 years ago. He has never required a cardiac catheterization. He does smoke 1 pack per day of tobacco and also a diabetic. Allergies/Adverse Reactions: Allergies Morphine Allergy (Verified 04/09/18 12:27) Other Makes him "delerious, nuts" Home Medications: Ambulatory Orders Amitriptyline HCl [Elavil] 100 mg PO BEDTIME 06/17/14 Citalopram Hydrobromide [Celexa] 40 mg PO QAM 06/17/14 Furosemide Tab [Lasix Tab] 40 mg PO DAILY PRN 06/17/14 Lisinopril 40 mg PO BEDTIME 06/17/14 Metoprolol Succinate [Toprol Xl] 50 mg PO BEDTIME 06/17/14 Zolpidem Tartrate [Ambien] 10 mg PO BEDTIME 06/17/14 Insulin Lispro [Humalog] 30 unit SC AC 09/01/16 Pravastatin Sodium [Pravachol] 40 mg PO BEDTIME 09/01/16 Insulin Glargine [Toujeo Solostar] 80 unit SC DAILY 08/29/17 Ondansetron [Zofran Odt] 4 mg PO Q4H PRN #30 tab 04/12/18 Tramadol HCl 50 - 100 mg PO Q6H #30 tab 04/12/18 Amoxicillin & Pot Clavulanate [Augmentin Tab] 875 mg PO BID #20 tab 06/22/19 Review of Systems - Review of Systems Constitutional: States: malaise. Denies: chills, fever, weakness EENTM: States: no symptoms reported Respiratory: States: short of breath, other - with exertion. Denies: cough, orthopnea, stridor Cardiology: States: chest pain, palpitations, other - over the past 3 days. Denies: edema, syncope Gastrointestinal/Abdominal: States: nausea. Denies: abdominal pain, constipation, diarrhea, vomiting Genitourinary: States: no symptoms reported Musculoskeletal: States: back pain, neck pain, other - patient reports chronic symptoms of back and neck pain Skin: States: no symptoms reported Neurological: States: headache. Denies: anxiety, depressed, numbness, paresthesia, seizure, tingling, tremors, weakness Endocrine: States: no symptoms reported Hematologic/Lymphatic: States: no symptoms reported All other Systems: Reviewed and Negative Past Medical History (General) - Patient Medical History Hx Seizures: No Hx Stroke: No Hx Dementia: No Hx Asthma: No Hx of COPD: No Hx Cardiac Disorders: Yes Hx Congestive Heart Failure: No Hx Pacemaker: No Hx Hypertension: Yes Hx Thyroid Disease: No Hx Diabetes: Yes Hx Gastroesophageal Reflux: Yes Hx Renal Disease: No Hx Cancer: No Hx of HIV: No Hx Hepatitis C: Yes Hx MRSA: No MRSA Source:: Wound - Vaccination History Hx Tetanus, Diphtheria Vaccination: Yes Hx Influenza Vaccination: No Hx Pneumococcal Vaccination: Yes - Social History Hx Tobacco Use: Yes Hx Chewing Tobacco Use: No Hx Alcohol Use: No Hx Substance Use: No Hx Substance Use Treatment: No Hx Depression: No Hx Physical Abuse: No Hx Emotional Abuse: No Hx Suspected Abuse: No - Female History Patient : No Family Medical History - Family History Mother Family History: Unknown Living Status: Age at (years of age): 47 Hx Family Hypertension: Yes Hx Cardiac Disease: Yes Physical Exam - Physical Exam General Appearance: Alert, No apparent distress, Other - patient has a full benavidez appears somewhat tobacco stained Eyes, Ears, Nose, Throat Exam: PERRL/EOMI, normal ENT inspection, TMs normal, pharynx normal Neck: non-tender, full range of motion, supple, normal inspection Respiratory: chest non-tender, lungs clear, normal breath sounds, no respiratory distress, no accessory muscle use, respiratory distress Cardiovascular/Chest: normal peripheral pulses, regular rate, rhythm, no edema, no gallop, no JVD, no murmur Peripheral Pulses: radial,right: 2+, radial,left: 2+ Gastrointestinal/Abdominal: normal bowel sounds, non tender, soft, no organomegaly, no pulsatile mass Rectal Exam: deferred Extremity: normal range of motion, non-tender, normal inspection, no pedal edema, no calf tenderness, normal capillary refill 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 Pt has a normal ecg. He does report cp improved with ntg. Second one being given. HR is 90. Seems to be improving with IVF. He is noted to have pansinusitis on ct of head. He had a clear cxr. Will get second set of enzymes. He has follow up with his pcp next monday. 06/22/19 11:21 Chest pain is relieved. His bp is stable and hr now in the 80's. Will give augmentin now as well. 06/22/19 12:19 patient is doing well. Repeat EKG is unchanged. Normal sinus rhythm with a r ate of 89 with a normal axis no ischemic changes are noted. 06/22/19 12:27 Second enzymes also negative. Will report to patient and likely recommend keeping his appt with pcp and discussing today's events with them. 06/22/19 12:47 discussed all findings with the patient. He states he is not in any pain currently. Heart rate still in the 80s. We discussed him following up with his PCP and likely being referred back to his medical care administrator for stress testing again. Patient is in agreement. All questions were answered today. - Results/Orders Results/Orders: 06/22/19 09:47 Sodium Chloride 0.9% (Flush) [Saline Flush Syringe] 10 ml IV PRN PRN EKG Stat Pulse Ox Stat 06/22/19 09:50 Sodium Chloride 0.9% 1000ML [Ns 1000 ml] 1,000 ml IVS .QD 06/22/19 11:18 EKG Assessment ONCE 06/22/19 11:50 TROPONIN-I Stat 06/22/19 12:00 EKG STAT Laboratory Results - last 24 hr 06/22/19 09:47 WBC 10.8 RBC 5.13 Hgb 15.7 Hct 47.5 MCV 92.6 MCH 30.5 MCHC 33.0 RDW 14.0 Plt Count 219 MPV 10.0 Absolute Neuts (auto) 7.60 H Absolute Lymphs (auto) 2.10 Absolute Monos (auto) 0.80 Absolute Eos (auto) 0.30 Absolute Basos (auto) 0.00 Neutrophils % 70.2 Lymphocytes % 19.4 L Monocytes % 7.4 Eosinophils % 2.6 Basophils % 0.4 PT 9.5 INR 0.95 PTT (SP) 24.8 Sodium 135 Potassium 4.0 Chloride 98 L Carbon Dioxide 22 Anion Gap 19.0 H BUN 17 Creatinine 0.79 BUN/Creatinine Ratio 21.5 H Random Glucose 437 H* Serum Osmolality 290.6 Calcium 9.0 Magnesium 1.7 L Creatine Kinase 91 CK-MB (CK-2) 2.6 CK-MB (CK-2) % Not Reportable Troponin I < 0.02 B-Natriuretic Peptide 16.3 IMPRESSION: 1. Sinusitis as above. 2. No acute change in the brain. Electronically signed by: Jess Field MD 06/22/2019 10:30 AM [facility] IMPRESSION: No acute findings in the chest. 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 Copy Instructions: DI for Chest Pain Prescriptions: Amoxicillin & Pot Clavulanate [Augmentin Tab] 875 mg PO BID #20 tab Home Medications: Ambulatory Orders Amitriptyline HCl [Elavil] 100 mg PO BEDTIME 06/17/14 Citalopram Hydrobromide [Celexa] 40 mg PO QAM 06/17/14 Furosemide Tab [Lasix Tab] 40 mg PO DAILY PRN 06/17/14 Lisinopril 40 mg PO BEDTIME 06/17/14 Metoprolol Succinate [Toprol Xl] 50 mg PO BEDTIME 06/17/14 Zolpidem Tartrate [Ambien] 10 mg PO BEDTIME 06/17/14 Insulin Lispro [Humalog] 30 unit SC AC 09/01/16 Pravastatin Sodium [Pravachol] 40 mg PO BEDTIME 09/01/16 Insulin Glargine [Toujeo Solostar] 80 unit SC DAILY 08/29/17 Ondansetron [Zofran Odt] 4 mg PO Q4H PRN #30 tab 04/12/18 Tramadol HCl 50 - 100 mg PO Q6H #30 tab 04/12/18 Amoxicillin & Pot Clavulanate [Augmentin Tab] 875 mg PO BID #20 tab 06/22/19 Additional Instructions: patient advised to take antibiotics until complete. Recommend keeping his appointment with Dr. Lopez. Recommend referral back to cardiology for stress testing. Recommend cutting down on smoking. If any worsening of symptoms would recommend return to emergency room. He was also advised not to partake in any strenuous activity until cleared by his physician.
[2019-06-22] MEDS: NITROGLYCERIN 0.4 MG 25 EA TAB SL ONE ×2 (10:11→10:55)
--- NOTE | 2019-06-22 10:30 | RAD ---
EXAM: XR Chest, 1 View CLINICAL HISTORY: chest pain TECHNIQUE: Frontal view of the chest. COMPARISON: 05/03/2017. FINDINGS: Limitations: None. Lungs: Unremarkable. No consolidation. Pleural space: Unremarkable. No pneumothorax. Heart: Unremarkable. No cardiomegaly. Mediastinum: Unremarkable. Bones/joints: Unremarkable. Tubes, lines and devices: The distal dorsal column stimulator. IMPRESSION: No acute findings in the chest. Electronically signed by: Jess Field MD 06/22/2019 10:28 AM [facility]
--- NOTE | 2019-06-22 10:32 | CT ---
EXAM: CT Head Without Intravenous Contrast CLINICAL HISTORY: Headache TECHNIQUE: Axial computed tomography images of the head/brain without intravenous contrast. Sagittal and coronal reformatted images were created and reviewed. This CT exam was performed using one or more of the following dose reduction techniques: automated exposure control, adjustment of the mA and/or kV according to patient size, and/or use of iterative reconstruction technique. COMPARISON: No relevant prior studies available. FINDINGS: Limitations: None. Brain: Unremarkable. No hemorrhage. No significant white matter disease. No edema. Ventricles: Unremarkable. No ventriculomegaly. Bones/joints: Unremarkable. No acute fracture. Soft tissues: Unremarkable. Sinuses: Bilateral ethmoid, maxillary and sphenoid thickening and mild fluid present. Mastoid air cells: Unremarkable as visualized. No mastoid effusion. IMPRESSION: 1. Sinusitis as above. 2. No acute change in the brain. 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
[2019-06-22] MEDS ORDERED: INSULIN, REG.(HUMAN) 100 U/ML VIAL SUBCU ONE (10:38)
[2019-06-22] MEDS ORDERED: AMOXICILLIN & POT CLAVULANATE 875 MG TAB PO ONE (11:20)
[2019-06-22 13:09] VITALS: BP 136/79; TEMP 96.3; O2SAT 97
== END 2019-06-22 13:05 | disposition home or self-care (01) ==
LOC: ER 09:16
DX: R07.9 Chest pain, unspecified (principal); E11.610 Type 2 diabetes mellitus with diabetic neuropathic arthropathy; R51 Headache; J32.4 Chronic pansinusitis; R11.0 Nausea; R06.02 Shortness of breath; I10 Essential (primary) hypertension; K21.9 Gastro-esophageal reflux disease without esophagitis; F17.210 Nicotine dependence, cigarettes, uncomplicated; I51.9 Heart disease, unspecified; Z79.899 Other long term (current) drug therapy; Z79.4 Long term (current) use of insulin; Z88.5 Allergy status to narcotic agent
CPT/HCPCS: 36415; 70450; 71045; 80048; 82550; 82553; 82948; 83880; 84484; 85025; 85610; 85730; 93005; 94760; J2405; J7030

== ENCOUNTER 2019-07-29 15:28 | Inpatient (IN) | payer MEDICARE, MEDICAID ==
[2019-07-29] MEDS ORDERED: SODIUM CHLORIDE 0.9% 1000ML 1,000 ML IVS ONE ×2 (15:54→20:45)
[2019-07-29] MEDS ORDERED: SODIUM CHLORIDE 0.9% (FLUSH) 10 ML SYG IV PRN ×2 (15:54→20:33)
[2019-07-29] MEDS ORDERED: fentaNYL CITRATE INJ 50 MCG/ML AMP IV ONE (17:06)
[2019-07-29] MEDS ORDERED: PROMETHAZINE HCL INJ 12.5 MG in SODIUM CHLORIDE 0.9% 50ML 50 ML IVPB ONE (17:06)
--- NOTE | 2019-07-29 17:10 | ED.PDOC ---
History of Present Illness - General Chief Complaint: Abdominal Pain Stated Complaint: Abdominal Pain, N/V Time Seen by Provider: 07/29/19 15:53 Source: patient - History of Present Illness Initial Comments: 59 yo male with PMH of DM2, hx of pancreatitis & diverticulitis who presents with cc of abdominal pain. Insidious onset 4 days ago with gradual worsening, located to epigastric region & radiates across upper abd and to LLQ, constant, crampy, 9/10 severity, no improvement with Fentanyl 25 mcg patch (takes chronically for back pain). Reports marked nausea and periodic scant emesis (spitting up phlegm). Had 1 loose watery stool this morning. Denies any fevers, chills, bloody/dark stools, chest pain, dyspnea, sore throat. Has intermittent cough. Reports hx of pancreatitis 2-3 times per year and also has had bouts of diverticulitis in the past. Allergies/Adverse Reactions: Allergies Morphine Allergy (Verified 04/09/18 12:27) Other Makes him "delerious, nuts" Home Medications: Ambulatory Orders Amitriptyline HCl [Elavil] 100 mg PO BEDTIME 06/17/14 Citalopram Hydrobromide [Celexa] 40 mg PO QAM 06/17/14 Furosemide Tab [Lasix Tab] 40 mg PO DAILY PRN 06/17/14 Lisinopril 40 mg PO BEDTIME 06/17/14 Metoprolol Succinate [Toprol Xl] 50 mg PO BEDTIME 06/17/14 Zolpidem Tartrate [Ambien] 10 mg PO BEDTIME 06/17/14 Insulin Lispro [Humalog] 30 unit SC AC 09/01/16 Pravastatin Sodium [Pravachol] 40 mg PO BEDTIME 09/01/16 Insulin Glargine [Toujeo Solostar] 80 unit SC DAILY 08/29/17 Ondansetron [Zofran Odt] 4 mg PO Q4H PRN #30 tab 04/12/18 Tramadol HCl 50 - 100 mg PO Q6H #30 tab 04/12/18 Amoxicillin & Pot Clavulanate [Augmentin Tab] 875 mg PO BID #20 tab 06/22/19 Review of Systems - Review of Systems Review of Systems: 07/29/19 17:10 as per HPI All other Systems: Reviewed and Negative Past Medical History (General) - Patient Medical History Hx Seizures: No Hx Stroke: No Hx Dementia: No Hx Asthma: No Hx of COPD: No Hx Cardiac Disorders: Yes Hx Congestive Heart Failure: No Hx Pacemaker: No Hx Hypertension: Yes Hx Thyroid Disease: No Hx Diabetes: Yes Hx Gastroesophageal Reflux: Yes Hx Renal Disease: No Hx Cancer: No Hx of HIV: No Hx Hepatitis C: Yes Hx MRSA: No MRSA Source:: Wound - Vaccination History Hx Tetanus, Diphtheria Vaccination: Yes Hx Influenza Vaccination: No Hx Pneumococcal Vaccination: Yes - Social History Hx Tobacco Use: Yes Hx Chewing Tobacco Use: No Hx Alcohol Use: No Hx Substance Use: No Hx Substance Use Treatment: No Hx Depression: No Hx Physical Abuse: No Hx Emotional Abuse: No Hx Suspected Abuse: No - Activities of Daily Living Hospice Agency (if applicable):: None - Female History Patient : No - Triage Comment ED Triage Comment: pt to ED bed 3 voicing complaints of abdominal pain and nausea vomiting for 2 days. pt denies taking anything prior to arrival Family Medical History - Family History Mother Family History: Unknown Living Status: Age at (years of age): 47 Hx Family Hypertension: Yes Hx Cardiac Disease: Yes Physical Exam - Physical Exam General Appearance: Alert, No apparent distress Eye Exam: bilateral normal Ears, Nose, Throat: hearing grossly normal, normal ENT inspection, normal pharynx Neck: non-tender, full range of motion, normal inspection Respiratory: chest non-tender, lungs clear, normal breath sounds, no respiratory distress Cardiovascular/Chest: regular rate, rhythm, no murmur, tachycardia Peripheral Pulses: radial,right: 2+, radial,left: 2+ Gastrointestinal/Abdominal: soft, tenderness - moderate to epigastric, LUQ, LLQ, other - hypoactive bowel sounds Back Exam: other - chronic well-healed vertical surgical scars to thoracic back in midline Extremity: normal range of motion, non-tender, normal inspection, no pedal edema, no calf tenderness Neurologic: circular sawyer stone II-XII nml as tested, no motor/sensory deficits, alert, normal mood/affect, oriented x 3 Skin Exam: normal color, warm/dry Progress - Progress Progress: 07/29/19 17:12 Abd pain -consider acute pancreatitis vs diverticulitis vs UTI vs gastroenteritis vs colitis vs gastroparesis (hx of DM2 & on chronic pain meds) vs constipation vs bowel obstruction vs ileus vs other -pt tachycardic but afebrile, vitals otherwise nml -labs reveal WBC 15,000 without left shift or bandemia, pancreatic enzymes slightly elevated. Lactate 1.2. -obtain CT A/P with IV contrast for further eval -Fentanyl 50 mcg IV & Phenergan 12.5 mg IV for nausea (had pt remove his Fentanyl patch) 07/29/19 19:52 -CT A/P reveals some inflammation around pancreatic head and concern for possible pancreatic head mass per radiology read. Also some inflammation surrounding the transverse and prox descending colon - ?colitis. No acute gallbladder pathology or diverticulitis noted. -Pt with markedly improved pain & nausea following ED trx, HR is now low 100s, remainder of vitals wnl -Spoke with Dr. Hoyos in consultation regarding CT findings - states pt may need further imaging and work-up for possible pancreatic head mass while in hospital and/or when acute inflammation subsides. States he is happy to see the patient in consultation while in the hospital. -Spoke with Yakov Arevalo who accepts pt for admission. Mitch Sewell MD Billing # - Results/Orders Results/Orders: 07/29/19 15:54 IV Care:Saline Lock per Protoc QSHIFT Sodium Chloride 0.9% (Flush) [Saline Flush Syringe] 10 ml IV PRN PRN 07/29/19 17:07 Hold Metformin x 48Hrs [id number] 07/29/19 19:55 ED Intent to Admit Routine Laboratory Results - last 24 hr 07/29/19 07/29/19 07/29/19 16:00 16:00 16:00 WBC 15.3 H RBC 5.35 Hgb 16.2 Hct 48.6 MCV 91.0 MCH 30.3 MCHC 33.3 RDW 13.3 Plt Count 210 MPV 9.6 Absolute Neuts (auto) 10.90 H Absolute Lymphs (auto) 2.60 Absolute Monos (auto) 1.40 H Absolute Eos (auto) 0.30 Absolute Basos (auto) 0.10 Neutrophils % 71.3 Lymphocytes % 17.0 L Monocytes % 9.0 Eosinophils % 2.0 Basophils % 0.7 Sodium 132 L Potassium 3.9 Chloride 95 L Carbon Dioxide 24 Anion Gap 16.9 BUN 15 Creatinine 0.76 BUN/Creatinine Ratio 19.7 Random Glucose 251 H Serum Osmolality 273.8 L Lactic Acid 1.3 Calcium 9.6 Total Bilirubin 0.5 Direct Bilirubin 0.1 Indirect Bilirubin 0.4 AST 19 ALT 22 Alkaline Phosphatase 92 Serum Total Protein 7.4 Albumin 4.1 Amylase 144 H Lipase 218 H Urine Color Urine Appearance Urine pH Ur Specific [place] Urine Protein Urine Glucose (UA) Urine Ketones Urine Blood Urine Nitrite Urine Bilirubin Urine Urobilinogen Ur Leukocyte Esterase Urine RBC Urine WBC Ur Epithelial Cells Urine Bacteria 07/29/19 17:50 WBC RBC Hgb Hct MCV MCH MCHC RDW Plt Count MPV Absolute Neuts (auto) Absolute Lymphs (auto) Absolute Monos (auto) Absolute Eos (auto) Absolute Basos (auto) Neutrophils % Lymphocytes % Monocytes % Eosinophils % Basophils % Sodium Potassium Chloride Carbon Dioxide Anion Gap BUN Creatinine BUN/Creatinine Ratio Random Glucose Serum Osmolality Lactic Acid Calcium Total Bilirubin Direct Bilirubin Indirect Bilirubin AST ALT Alkaline Phosphatase Serum Total Protein Albumin Amylase Lipase Urine Color Yellow Urine Appearance Clear Urine pH 7.0 Ur Specific [place] 1.010 Urine Protein Negative Urine Glucose (UA) 500 H Urine Ketones Negative Urine Blood Negative Urine Nitrite Negative Urine Bilirubin Negative Urine Urobilinogen 0.2 Ur Leukocyte Esterase Negative Urine RBC 0 Urine WBC 0 Ur Epithelial Cells 0 Urine Bacteria 0 - EKG/XRAY/CT XRAY: chest - no acute processes Departure - Departure Clinical Impression: Acute pancreatitis without necrosis or infection, unspecified Qualifiers: Pancreatitis type: unspecified pancreatitis type Qualified Code(s): K85.90 - Acute pancreatitis without necrosis or infection, unspecified Time of Disposition: 19:55 Disposition: Admit Patient Condition: Fair Departure Forms: ED Discharge - Pt. Copy, Patient Portal Self Enrollment Instructions: DI for Abdominal Pain-Adult Home Medications: Ambulatory Orders Amitriptyline HCl [Elavil] 100 mg PO BEDTIME 06/17/14 Citalopram Hydrobromide [Celexa] 40 mg PO QAM 06/17/14 Furosemide Tab [Lasix Tab] 40 mg PO DAILY PRN 06/17/14 Lisinopril 40 mg PO BEDTIME 06/17/14 Metoprolol Succinate [Toprol Xl] 50 mg PO BEDTIME 06/17/14 Zolpidem Tartrate [Ambien] 10 mg PO BEDTIME 06/17/14 Insulin Lispro [Humalog] 30 unit SC AC 09/01/16 Pravastatin Sodium [Pravachol] 40 mg PO BEDTIME 09/01/16 Insulin Glargine [Toujeo Solostar] 80 unit SC DAILY 08/29/17 Ondansetron [Zofran Odt] 4 mg PO Q4H PRN #30 tab 04/12/18 Tramadol HCl 50 - 100 mg PO Q6H #30 tab 04/12/18 Amoxicillin & Pot Clavulanate [Augmentin Tab] 875 mg PO BID #20 tab 06/22/19 Decision To Admit - Decistion To Admit Decision to Admit Reason: Admit from ER Decision to Admit Date: 07/29/19 Decision to Admit Time: 19:55
[2019-07-29] MEDS ORDERED: SODIUM CHLORIDE 0.9% 50ML 50 ML ONE (17:19)
[2019-07-29] MEDS ORDERED: PROMETHAZINE HCL INJ 25 MG/ML VIAL ONE (17:19)
--- NOTE | 2019-07-29 18:19 | RAD ---
EXAM DESCRIPTION: Chest,1 View CLINICAL HISTORY: 59 years Male, epigastric abd pain COMPARISON: Previous study June 22, 2019 TECHNIQUE: AP portable chest. FINDINGS: Heart size is normal with normal pulmonary vascularity. TENS unit electrode leads in the mid T-spine. No consolidating infiltrate. No pulmonary mass or worrisome nodule. No pneumothorax or pleural effusion. Bones are unremarkable. IMPRESSION: No acute process is identified in the chest. Electronically signed by: Gerry Toledo MD 07/29/2019 6:17 PM [facility]
--- NOTE | 2019-07-29 18:24 | CT ---
EXAM DESCRIPTION: Abdomen/Pelvis w/Contrast CLINICAL HISTORY: acute abd pain, hx of pancreatitis diverticuliti COMPARISON: None Available TECHNIQUE: Contiguous axial images of the abdomen and pelvis were obtained after the administration of intravenous contrast followed by reconstruction images.This exam was performed according to our departmental dose-optimization program, which includes automated exposure control, adjustment of the mA and/or kV according to patient size and/or use of iterative reconstruction technique. FINDINGS: There are postsurgical changes. There is mild soft tissue stranding of the fat surrounding the pancreatic head. Inflammation of the pancreas is possible. There is a possible pancreatic head mass. See for instance image 32 of series 2. It measures 19 mm diameter. Follow-up is recommended. There is thickening of the wall of the colon near the splenic flexure with soft tissue stranding of the surrounding fat suggesting inflammation. Ischemia or neoplasm are less likely. Spinal catheter is present and incompletely imaged. There are bony degenerative changes and postsurgical changes. . There is no hydronephrosis. The gallbladder is unremarkable. Adrenal glands are within normal limits. Aorta is normal in caliber and tapering. No significant free fluid. No free air. No bowel obstruction. IMPRESSION: Findings suggest inflammation of the transverse and proximal descending colon. Possible pancreatitis and possible pancreatic head mass. Follow-up is recommended. No other acute abnormality. Electronically signed by: Mp De 07/29/2019 6:22 PM REVENUE MANAGER
--- NOTE | 2019-07-29 20:27 | HP ---
SUPERVISING PHYSICIAN: Yaz Schaeffer MD CHIEF COMPLAINT: Severe abdominal pain. HISTORY OF PRESENT ILLNESS: Mr. Alexander is a 59-year-old male patient with a history of pancreatitis and diverticulitis that presented to the Emergency Department today complaining of abdominal pain. He noted the pain had started about 4 days ago and gradually worsened in his epigastric region, but radiating across his upper abdomen into his left lower quadrant and back ranging 9 to 10 and noted to be constant and crampy. He does take a fentanyl patch 25 mcg for chronic back pain and is getting no significant relief. He was having some nausea, but not a significant amount of emesis. It is also noted that he had several episodes of loose stools this morning prior to visit in the ER, but denies any fever, chills, maggie blood, no chest pains, no reported dyspnea. He has been admitted in the past year 2 or 3 times for pancreatitis as well as for diverticulitis. In the Emergency Room, his laboratory studies showed he had a leukocytosis of 15,000 with a left shift. Hemoglobin 16.2 and hematocrit 48.6. Platelet count was within normal limits. Chemistry showed a mild hyponatremia at 132. Liver functions were all within normal limits. Pancreatic enzymes showed elevated lipase at 218, amylase 144. He was given IV fluids and pain medicine with good results. CT of the abdomen and pelvis with contrast was completed and per radiologic interpretation, there is note of findings suggestive of inflammation of the transverse and proximal descending colon with possible pancreatitis and possible pancreatic head mass. No other acute abnormalities noted. He was afebrile with initial temperature of 97.6 and hemodynamically stable with a blood pressure initially in the Emergency Room of 120/94 with some tachycardia at 120, saturation 92% on room air. Given the findings on his CT of the abdomen, the ER physician contacted Dr. Hoyos in regards to those findings and the suggestion is that the patient be admitted for treatment of acute pancreatitis and further followup on the possible pancreatic head mass. The patient is going to be admitted for continuation of treatment and evaluation. He was admitted in stable condition. PAST MEDICAL HISTORY: 1. Diabetes mellitus, type 2, on insulin therapy. 2. Chronic obstructive pulmonary disease. 3. History of T12, L1 and L2 fractures. 4. Chronic back pain secondary to #3. 5. Gastroesophageal reflux disease. 6. Hypertension. 7. Obstructive sleep apnea, noncompliant with use of CPAP. 8. Diverticulosis. 9. Hepatitis C treated and cleared. 10. Peripheral neuropathy 11. 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 12. History of septic shoulder which required 2 months of IV vancomycin. 13. History of anemia. PAST SURGICAL HISTORY: 1. Left toe amputation secondary to osteomyelitis. 2. Bilateral inguinal hernia repairs. 3. Lumbar spine repair. 4. Left orchiopexy. 5. Right and left rotator cuff surgery. 6. Colonoscopy within the last 3 months which showed diverticulosis with some polyps. CURRENT MEDICATIONS: 1. Fentanyl patch 25 mcg q. hour, every third day. 2. Temazepam 30 mg at bedtime. 3. Zofran 4 mg ODT. 4. Toprol 100 mg at bedtime. 5. Lisinopril 40 mg daily. 6. Sliding scale insulin. 7. Toujeo 85 units daily. 8. Glipizide 10 mg daily. 9. Lasix 40 mg as needed. 10. Clonidine 0.1 mg as needed. 11. Celexa 40 mg daily. 12. Lipitor 20 mg daily. 13. Elavil 100 mg at bedtime. ALLERGIES: MORPHINE. FAMILY HISTORY: Father is reported healthy. He has one brother at 41 years of age from complications from millstone cleaner ingestion as a child with continued problems through his adulthood. Mother at age 47 from a myocardial infarction. SOCIAL HISTORY: The patient continues to smoke about a half pack of cigarettes per day. He does not drink any significant amount of alcohol or use illicit drugs, however, he does have a history of methamphetamine, barbiturates, cocaine and marijuana use in the past. He is and has 2 children. REVIEW OF SYSTEMS: CONSTITUTIONAL: Negative for any fevers, chills or unintentional weight loss. He does have general malaise. HEENT: Negative for headaches, sore throats, earaches, nasal congestion. RESPIRATORY: Denies cough, hemoptysis, chest pains, shortness of breath. CARDIOVASCULAR: Negative for chest pain, palpitations or syncopal episodes. GASTROINTESTINAL: Positive for nausea, vomiting, diarrhea and some abdominal pain as noted in history of present illness. GENITOURINARY: Negative for dysuria, hematuria, polyuria. HEMATOLOGIC: Denies easy bruising or unexplained bleeding or transfusion reactions. MUSCULOSKELETAL: Positive for chronic back pain. No reported joint aches or joint swelling. ENDOCRINE: Negative for polydipsia, polyuria or polyphagia. He does have some issue with control of his blood sugars on insulin. NEUROLOGIC: Denies syncopal episodes, paresthesias, seizures, ataxia or other neurologic deficits. PHYSICAL EXAMINATION: VITAL SIGNS: Temperature 98 on admission with pulse 120. Blood pressure 120/94. Respiratory rate 20. Saturation 92% on room air. GENERAL: The patient appears to be in no acute distress, but does appear uncomfortable secondary to pain. HEENT: Tympanic membranes clear bilaterally. Oropharynx is pink, moist without any lesions. NECK: Supple, nontender with full range of motion. No jugular venous distention noted. RESPIRATORY: Lungs clear to auscultation bilaterally without any rhonchi, wheezes or rales. CARDIOVASCULAR: Regular rate and rhythm, tachycardic, but no murmurs, gallops, or rubs noted. ABDOMEN: Obese, soft with some tenderness noted in the epigastric region and left upper quadrant and right lower quadrant regions. No peritoneal signs or point tenderness. He does have hypoactive bowel sounds. BACK: There are healing scars, but no point tenderness, no CVA tenderness. EXTREMITIES: There is no cyanosis, clubbing or edema. NEUROLOGIC: The patient is alert and oriented times three. Cranial nerves II- XII are grossly intact. Facial features are symmetrical. Extraocular movements are within normal limits. There is no nystagmus noted. SKIN: Warm, pink and dry. LABORATORY: White count does show a leukocytosis of 15,000 with a hemoglobin of 16.2, hematocrit 48.6, platelet count within normal limits at 210,000. Differential did show a left shift. Chemistry showed a mild hyponatremia at 132. Potassium 3.9, creatinine 0.76. Blood sugar 251, lactic acid 1.3. Liver functions all within normal limits. Amylase 144, lipase 218. Urinalysis just showed 500 glucose, but otherwise within normal limits. RADIOLOGY: Chest x-ray per radiologic interpretation showed no acute process in the chest. This was followed up with CT of the abdomen and pelvis with contrast and per radiologic interpretation showed findings suggestive of inflammation of the transverse and proximal descending colon and possible pancreatitis and possible pancreatic head mass. No other acute abnormalities were noted. ASSESSMENT: 1. Acute pancreatitis with CT findings concerning for a mass on the pancreatic head, unable to fully rule out an infectious process with the patient showing sepsis with leukocytosis, tachycardia with a longstanding history of pancreatitis. 2. Questionable diverticulitis versus enteritis. 3. Diabetes mellitus, type 2, on insulin, poorly controlled. 4. Hypertension, poorly controlled. 5. Chronic obstructive pulmonary disease with no signs of exacerbation. 6. Gastroesophageal reflux disease. 7. Obstructive sleep apnea, noncompliant with CPAP. 8. History of diverticulosis. 9. History of hepatitis C with treatment to cure. 10. Chronic back pain with history of T12, L1 and L2 fractures. 11. Peripheral neuropathy. 12. History of anemia. PLAN: Mr. Alexander is going to be admitted for treatment of acute pancreatitis and concern for developing colitis versus enteritis versus diverticulitis. He has been made NPO for bowel rest. He will be on insulin sliding scale per protocol. We will resume his home medications once those have been verified and updated as appropriate to his treatment. He will be on DVT prophylaxis per protocol. I have requested a consultation with Dr. Hoyos in the morning. We will order additional imaging studies as needed in the morning after I talk with Dr. Hoyos since the patient will be NPO. We will need to followup the findings on CT of the pancreatic head with possible mass. We will provide pain management with Dilaudid as he is allergic to morphine. I have ordered Phenergan and Zofran as needed for nausea. I will put him on antibiotics given the fact that he is having sepsis with a left shift and the findings on CT and unable to rule out infectious process at this point. Therefore, we will start him on some cefepime with Flagyl. I will reassess in the morning. Certainly, if his clinical picture does not present any worse or show any signs of infection, we will stop antibiotics as soon as possible. I anticipate length of stay to be at least 2 to 3 days. Until the patient can transition to outpatient management, we will continue to monitor and treat as needed. #[id number] [facility]
[2019-07-29] MEDS ORDERED: DEXTROSE 10% 500ML IVPB PRN (20:33)
[2019-07-29] MEDS ORDERED: GLUCAGON INJ 1 MG VIAL SUBCU PRN (20:33)
[2019-07-29] MEDS ORDERED: PROMETHAZINE HCL INJ 12.5 MG in SODIUM CHLORIDE 0.9% 50ML 50 ML IVPB PRN (20:35)
[2019-07-29] MEDS ORDERED: fentaNYL CITRATE INJ 50 MCG/ML AMP IV PRN (20:36)
[2019-07-29] MEDS: HYDROmorphone HCL INJ 2 MG/ML VIAL IV PRN (21:08)
[2019-07-29] MEDS: IV SET AND CAP CHANGE INJ INJ SCH (21:09)
[2019-07-29] MEDS: SODIUM CHLORIDE 0.9% 1000ML 1,000 ML IVS PRN (22:04)
[2019-07-30] MEDS: INSULIN LISPRO 100 UNITS/ML PEN SUBCU SCH ×4 (00:15→18:04)
[2019-07-30] MEDS ORDERED: SODIUM CHL 0.9% 50ML MIN-BAG+ 50 ML IVPB ONE ×3 (00:41→19:33)
[2019-07-30] MEDS ORDERED: CEFEPIME 2 GM VIAL ONE ×3 (00:41→19:34)
[2019-07-30] MEDS: CEFEPIME 2 GM in SODIUM CHL 0.9% 50ML MIN-BAG+ 50 ML IVPB SCH ×2 (00:43→13:12)
[2019-07-30] MEDS ORDERED: metroNIDAZOLE IV PREMIX 500MG 100 ML IVPB ONE ×4 (00:45→19:34)
[2019-07-30] MEDS: metroNIDAZOLE IV PREMIX 500MG 500 MG in PREMIX BAG 1 BAG IVPB SCH ×3 (01:25→17:05)
[2019-07-30] MEDS: HYDROmorphone HCL INJ 2 MG/ML VIAL IV PRN ×5 (01:28→21:08)
[2019-07-30] MEDS: SODIUM CHLORIDE 0.9% 1000ML 1,000 ML IVS PRN ×2 (07:30→17:04)
--- NOTE | 2019-07-30 10:37 | CONS ---
DATE OF CONSULTATION: 07/30/19 HISTORY OF PRESENT ILLNESS: The patient is a 59-year-old male with a history of pancreatitis and diverticulitis that was admitted through the Emergency Room last night with a four day history of abdominal pain which was worsening, generally in his epigastric region, but radiating into his left lower quadrant. The pain was constant and crampy. The patient had nausea, but no emesis. He has had loose stools prior to his Emergency Room visit. He denied fever, chills, chest pain, shortness of breath. His previous episodes of diverticulitis are believed to be idiopathic etiology. He denies use or alcohol. He does take pain medication for chronic back pain and has hardware in his back. PAST MEDICAL HISTORY: 1. Diabetes. 2. Chronic obstructive pulmonary disease. 3. Back issues. 4. Gastroesophageal reflux disease. 5. Hypertension. 6. Sleep apnea. 7. Diverticulosis. 8. Hepatitis C. 9. Peripheral neuropathy. PAST SURGICAL HISTORY: 1. Left toe amputations secondary to a nonhealing wound. 2. Septic shoulder. 3. Left orchiopexy. 4. Right and left rotator cuff surgery. 5. Colonoscopy which showed diverticulosis with polyps. MEDICATIONS AT TIME OF ADMISSION: 1. Fentanyl. 2. Temazepam. 3. Zofran. 4. Toprol. 5. Lisinopril. 6. Insulin. 7. Toujeo. 8. Glipizide. 9. Lasix. 10. Clonidine. 11. Celexa. 12. Lipitor. 13. Elavil. ALLERGIES: MORPHINE. FAMILY HISTORY: His father is healthy. Mother from a myocardial infarction at 47. SOCIAL HISTORY: The patient smokes about half a pack a day. He does not drink. He does not use drugs. He does have a history of methamphetamines, barbiturates, cocaine and marijuana abuse. He is and has two children. REVIEW OF SYSTEMS: There has been no weight loss, no hemoptysis, hematochezia or melena. No problems with voiding. He denies shortness of breath, cough. PHYSICAL EXAMINATION: GENERAL: The patient is awake, alert, cooperative, in mild to moderate distress. VITAL SIGNS: The patient is currently afebrile, normotensive. HEENT: Sclerae nonicteric. Mucous membranes moist. NECK: Without adenopathy. BACK: Without CVA tenderness. CHEST: Equal breath sounds bilaterally. ABDOMEN: Soft. It is diffusely tender, especially in the epigastrium and left upper quadrant. Bowel sounds are active. RECTAL: Deferred. EXTREMITIES: Without cyanosis, clubbing or edema. LABORATORY: White count 11,000, down from 15,000. Hemoglobin is 15, down from 16. He has 191,000 platelets. Differential reveals 63% neutrophils, down from 71%. Chemistry shows potassium 4, creatinine 0.57. Blood sugar 150 this morning. Lactic acid 143, calcium 8.9, amylase 123, lipase 178, down from [address] scan last night revealed inflammation in the area of the head of the pancreas, possible mass in the head of the pancreas of 19 cm. There is thickening of the wall of the colon near the splenic flexure with soft tissue stranding of the surrounding fat suggesting inflammation, ischemia or neoplasm less likely. ASSESSMENT: 1. Abdominal pain. 2. Leukocytosis with no fever. 3. Inflammation involving the transverse and proximal descending colon. Could be secondary to pancreatitis. There is also possible inflammation involving the head of the pancreas consistent with pancreatitis of uncertain etiology. PLAN: Continue the current conservative treatment with bowel rest. Continue pain medication as needed. We will obtain an ultrasound to rule out etiology of the pancreatitis and rule out stones. Eventually, he will require a CT scan with fine cuts of the head of the pancreas. This would best be done after these other symptoms resolve. We will also continue treatment to assume that there is possible diverticulitis, but this is likely associated with the pancreatic lesion. #[id number] [facility]
--- NOTE | 2019-07-30 13:26 | US ---
EXAM DESCRIPTION: Abdomen,Limited: ULTRASOUND. CLINICAL HISTORY: pancreatitis COMPARISON: CT abdomen yesterday. TECHNIQUE: Transabdominal scanning: ordoñez-scale mode. Doppler mode. FINDINGS: Gallbladder: normal size, shape, echogenicity; no intraluminal stones or sludge. No fluid around the gallbladder. No wall thickening. 2.4 mm. Non-tender with transducer pressure. Common bile duct: caliber 5.4 mm within normal limits. Liver: Increased homogeneous echogenicity; no focal lesions. Contour liver capsule smooth where seen. No fluid around the liver. Intrahepatic biliary ducts normal caliber. Doppler hepatopedal flow and normal caliber portal vein.. Long axis right lobe 18.0 cm. Pancreas: Heterogeneous and difficult to measure. No definite cyst or duct dilation. Proximal abdominal aorta: 2.3 cm normal caliber.. IVC: visualized and normal caliber. Right kidney: long axis measures 11.7 cm. Normal cortical Echogenicity. Normal cortical thickness. No echogenic stones or hydronephrosis. IMPRESSION: 1. Pancreas was heterogeneous in echoes are difficult to measure. No definite cyst or duct dilation. 2. Enlarged liver with steatosis. Physiologic ducts and vascularity. No focal lesions. Smooth capsule with no ascites. 3. Gallbladder and common bile duct and right kidney unremarkable. Normal caliber of the proximal abdominal aorta and the superior IVC. Electronically signed by: Mp Randall MD 07/30/2019 1:25 PM [employer]
[2019-07-30] MEDS: ONDANSETRON INJ 4 MG/2 ML VIAL IV PRN (19:41)
[2019-07-31] MEDS: CEFEPIME 2 GM in SODIUM CHL 0.9% 50ML MIN-BAG+ 50 ML IVPB SCH ×2 (00:04→13:16)
[2019-07-31] MEDS: INSULIN LISPRO 100 UNITS/ML PEN SUBCU SCH ×4 (00:08→18:09)
[2019-07-31] MEDS: metroNIDAZOLE IV PREMIX 500MG 500 MG in PREMIX BAG 1 BAG IVPB SCH ×3 (00:39→16:14)
[2019-07-31] MEDS: HYDROmorphone HCL INJ 2 MG/ML VIAL IV PRN ×6 (01:09→21:39)
[2019-07-31] MEDS: ONDANSETRON INJ 4 MG/2 ML VIAL IV PRN ×2 (01:39→20:17)
[2019-07-31] MEDS: SODIUM CHLORIDE 0.9% 1000ML 1,000 ML IVS PRN (04:26)
[2019-07-31] MEDS ORDERED: metroNIDAZOLE IV PREMIX 500MG 100 ML IVPB ONE ×3 (08:05→19:36)
[2019-07-31] MEDS: DEX 5% W/NACL 0.9% 1000ML 1,000 ML IVS PRN ×2 (09:27→20:14)
--- NOTE | 2019-07-31 10:19 | PN ---
DATE: 07/30/19 SUPERVISING PHYSICIAN: Bora Schaeffer MD SUBJECTIVE: The patient continues to have a little associated nausea with his abdominal pain. He has no reported chest pain or shortness of breath. OBJECTIVE: VITAL SIGNS: Temperature 98.2, pulse 85, blood pressure 164/89, respirations 16, oxygen saturation 97% on room air. GENERAL: The patient is sitting in a bedside chair, notes that he is still having some additional pain but he appears to be alert and in no acute distress. CHEST: Lung sounds clear, just slightly diminished towards the bases. HEART: Regular rate and rhythm. ABDOMEN: Soft, tenderness is noted in the left upper quadrant and extending down to the left lower quadrant, no rebound tenderness, no point tenderness, no peritoneal signs. EXTREMITIES: Without edema. NEUROLOGIC: Alert and oriented x 3. LABORATORY: White count showing improvement down to 11,100, hemoglobin 15.3, hematocrit 43.7, platelet count 191,000, differential shows a resolving left shift. Chemistries show normal electrolytes. BUN 11, creatinine 0.57, glucoses range from 86 to 156. Calcium 8.9, amylase down to 123, lipase at 178. RADIOLOGY: Abdominal ultrasound showed pancreas with heterogeneous in echoes are difficult to measure, no definite shift or dilation was noted. Enlarged liver with steatosis with no focal lesions, no ascites. Gallbladder and common bile duct and right kidney were unremarkable. ASSESSMENT: 1. Acute abdominal pain secondary to pancreatitis 2. Continued concerns for diverticulitis, patient showing improvement on antibiotics. 3. Sepsis secondary to #1 showing improvement with antibiotics and fluids. 4. Diabetes mellitus, type 2, on insulin, poorly controlled. 5. Hypertension, poorly controlled. 6. Chronic obstructive pulmonary disease with no signs of exacerbation. 7. Gastroesophageal reflux disease. 8. Obstructive sleep apnea, noncompliant with CPAP. 8. History of diverticulosis. 9. History of hepatitis C with treatment to cure. 10. Chronic back pain with history of T12, L1 and L2 fractures. 11. Peripheral neuropathy. 12. History of anemia. PLAN: Will continue with current plan of care at this point with n.p.o. fluids, pain management and antibiotic coverage for concerns for diverticulitis and not able to fully rule out pancreatitis secondary to infectious source. Dr. Hoyos has seen the patient in consultation. Will continue to follow Dr. Hoyos's recommendation. Will have him on DVT prophylaxis per protocol. He is on insulin sliding scale per protocol. I would anticipate at least another 24 to 48 hours hospitalization. Until we can transition him to outpatient management, we will continue to monitor and treat as needed. #[id number] [facility]
[2019-07-31] MEDS ORDERED: SODIUM CHL 0.9% 50ML MIN-BAG+ 50 ML IVPB ONE ×2 (13:13→19:35)
[2019-07-31] MEDS ORDERED: CEFEPIME 2 GM VIAL ONE ×2 (13:13→19:35)
--- NOTE | 2019-07-31 19:09 | PN ---
DATE: 07/31/19 SUPERVISING PHYSICIAN: Bora Schaeffer M.D. SUBJECTIVE: The patient is sitting up in his chair in his room. He is feeling better. He continues to need pain medications and is NPO at this time. He has no complaints of nausea or vomiting, chest pain or shortness of breath. OBJECTIVE: VITAL SIGNS: Temperature 97.5, heart rate 97, blood pressure 165/95, respiratory rate 20, O2 sat 94% on room air. RESPIRATORY: Essentially clear to auscultation bilaterally. CARDIAC: Regular rate and rhythm. GASTROINTESTINAL: Abdomen is soft, nondistended. Mildly tender in the epigastric and the left upper quadrant area. No rebound tenderness or guarding. Bowel sounds are positive. NEUROLOGIC: He is awake, alert and oriented times three. LABORATORY: WBCs are 16,100 with hemoglobin 16.1, hematocrit 48.8. Blood sugars have run between 83 and 100. Electrolytes are basically within normal limits. All other labs and films have been reviewed via the EMR. ASSESSMENT: 1. Acute abdominal pain secondary to pancreatitis. 2. Continued concerns for diverticulitis, patient showing improvement on antibiotics. 3. Sepsis secondary to #1 showing improvement with antibiotics and fluids. 4. Diabetes mellitus, type 2, on insulin, poorly controlled. 5. Hypertension, poorly controlled. 6. Chronic obstructive pulmonary disease with no signs or symptoms of exacerbation. 7. Gastroesophageal reflux disease. 8. Obstructive sleep apnea, noncompliant with CPAP. 8. History of diverticulosis. 9. History of hepatitis C with treatment to cure. 10. Chronic back pain. 11. Peripheral neuropathy. 12. History of anemia. PLAN: We will continue present supportive care. He will continue with NPO and pain management, and will follow Dr. Hoyos's recommendations on his care. Dr. Hoyos did ask that I talk to the GI physician and I spoke with Dr. Love today in regards to the probable mass on the head of his pancreas. Dr. Love recommended that the patient see his GI doctor, Dr. Crawley, in 1 to 2 weeks and that at some point after that followup he will need an endoscopic ultrasound which Dr. Crawley will arrange. Other than that we will continue his NPO status. I believe we can transition to oral pain medication tomorrow and advance his diet, but will go by Dr. Hoyos's recommendations. I have ordered lab for in the morning and I have changed his fluids as appropriate. Will continue to monitor him closely and follow as needed. [facility][id number] [facility]
[2019-08-01] MEDS: CEFEPIME 2 GM in SODIUM CHL 0.9% 50ML MIN-BAG+ 50 ML IVPB SCH ×2 (00:09→11:55)
[2019-08-01] MEDS: INSULIN LISPRO 100 UNITS/ML PEN SUBCU SCH ×4 (00:21→18:22)
[2019-08-01] MEDS: metroNIDAZOLE IV PREMIX 500MG 500 MG in PREMIX BAG 1 BAG IVPB SCH ×3 (00:45→16:45)
[2019-08-01] MEDS: HYDROmorphone HCL INJ 2 MG/ML VIAL IV PRN ×2 (01:43→05:43)
[2019-08-01] MEDS: DEX 5% W/NACL 0.9% 1000ML 1,000 ML IVS PRN (04:59)
[2019-08-01] MEDS ORDERED: metroNIDAZOLE IV PREMIX 500MG 100 ML IVPB ONE ×3 (06:58→19:00)
[2019-08-01] MEDS ORDERED: fentaNYL PATCH 25 MCG/HR 1 EA PATCH TOP SCH (09:00)
[2019-08-01] MEDS ORDERED: HYDROmorphone HCL INJ 2 MG/ML VIAL IV PRN (09:04)
[2019-08-01] MEDS ORDERED: fentaNYL PATCH 25 MCG/HR 1 EA PATCH ONE (09:25)
[2019-08-01] MEDS ORDERED: CITALOPRAM HBR 20 MG TAB ONE (09:25)
[2019-08-01] MEDS: CITALOPRAM HBR 20 MG TAB PO SCH (09:28)
[2019-08-01] MEDS ORDERED: SODIUM CHL 0.9% 50ML MIN-BAG+ 50 ML IVPB ONE ×2 (10:50→19:00)
[2019-08-01] MEDS ORDERED: CEFEPIME 2 GM VIAL ONE ×2 (10:50→19:00)
[2019-08-01] MEDS ORDERED: AMITRIPTYLINE HCL 25 MG TAB ONE (19:00)
[2019-08-01] MEDS ORDERED: TEMAZEPAM 15 MG CAP ONE (19:01)
[2019-08-01] MEDS: IV SET AND CAP CHANGE INJ INJ SCH (20:20)
[2019-08-01] MEDS ORDERED: TEMAZEPAM 15 MG CAP PO SCH (21:00)
[2019-08-01] MEDS ORDERED: AMITRIPTYLINE HCL 25 MG TAB PO SCH (21:00)
[2019-08-02] MEDS: DEX 5% W/NACL 0.9% 1000ML 1,000 ML IVS PRN (00:08)
[2019-08-02] MEDS: metroNIDAZOLE IV PREMIX 500MG 500 MG in PREMIX BAG 1 BAG IVPB SCH ×2 (00:09→09:02)
[2019-08-02] MEDS: INSULIN LISPRO 100 UNITS/ML PEN SUBCU SCH ×3 (00:16→11:22)
[2019-08-02] MEDS: CEFEPIME 2 GM in SODIUM CHL 0.9% 50ML MIN-BAG+ 50 ML IVPB SCH ×2 (01:05→12:11)
--- NOTE | 2019-08-02 06:48 | RAD ---
EXAM: XR Abdomen, 2 Views CLINICAL HISTORY: The patient is 59 years old and is Male; pancreatitis TECHNIQUE: Frontal view of the abdomen/pelvis with upright view of the abdomen. COMPARISON: No relevant prior studies available. FINDINGS: INTRAPERITONEAL SPACE: No free air. GASTROINTESTINAL TRACT: The bowel gas pattern is nonspecific. Minimal stool is present. No dilated loops of bowel are seen. BONES/JOINTS: Postsurgical change of the upper lumbar spine is present. There are degenerative changes of the bones. TUBES, LINES AND DEVICES: An epidural catheter is noted. IMPRESSION: Nonobstructive, nonspecific bowel gas pattern. Electronically signed by: Jasmyn Aguilar MD 08/02/2019 6:46 AM [employer]
[2019-08-02] MEDS ORDERED: metroNIDAZOLE IV PREMIX 500MG 100 ML IVPB ONE (08:39)
[2019-08-02] MEDS: CITALOPRAM HBR 20 MG TAB PO SCH (09:02)
--- NOTE | 2019-08-02 09:16 | PN ---
DATE: 08/01/19 SUPERVISING PHYSICIAN: Bora Schaeffer M.D. SUBJECTIVE: The patient is sitting up in his chair in his room. He still complains of abdominal pain but has had no nausea or vomiting or shortness of breath or chest pain. I explained to him that we would restart his routine pain medication which includes a Fentanyl patch and that his Dilaudid would be discontinued. Dr. Hoyos saw him earlier and his diet has been advanced to clear liquids. He has had no issues with his clear liquid diet. He does have an appointment with GI doctor in [place]. Hopefully, he will tolerate his diet as we advance it and he can be discharged in the next one to two days with close followup with his primary care physician as well as the GI doctor in [place]. I have encouraged him to get up and walk in the hallways and will continue to monitor him closely and follow as needed. . OBJECTIVE: VITAL SIGNS: Temperature 98, heart rate 84, blood pressure 149/76, respiratory rate 20, O2 sat 96% on room air. RESPIRATORY: Essentially clear to auscultation bilaterally. CARDIAC: Regular rate and rhythm. GASTROINTESTINAL: Abdomen is soft, nondistended. Mildly tender in the epigastric and the left upper quadrant area. No rebound tenderness or guarding. Bowel sounds are positive. NEUROLOGIC: He is awake, alert and oriented times three. LABORATORY: WBCs are 9,600 with hemoglobin 15, hematocrit 46. Electrolytes are basically within normal limits. All other labs and films have been reviewed via the EMR. ASSESSMENT: 1. Acute abdominal pain secondary to pancreatitis. 2. Continued concerns for diverticulitis, patient showing improvement on antibiotics. 3. Sepsis secondary to #1 showing improvement with antibiotics and fluids. 4. Diabetes mellitus, type 2, on insulin, poorly controlled. 5. Hypertension, poorly controlled. 6. Chronic obstructive pulmonary disease with no signs or symptoms of exacerbation. 7. Gastroesophageal reflux disease. 8. Obstructive sleep apnea, noncompliant with CPAP. 8. History of diverticulosis. 9. History of hepatitis C with treatment to cure. 10. Chronic back pain. 11. Peripheral neuropathy. 12. History of anemia. PLAN: We will continue present supportive care. His diet has been advanced slowly, and will follow Dr. Hoyos's recommendations on his care. I spoke to Dr. Hoyos about my consultation with Dr. Love yesterday in regards to the probable mass on the head of his pancreas. Again, Dr. Love recommended that the patient see his GI doctor, Dr. Crawley, in 1 to 2 weeks and that at some point after that followup he will need an endoscopic ultrasound which Dr. Crawley will arrange. We have transitioned him to oral pain medication tomorrow and continue to advance his diet, but will go by Dr. Hoyos's recommendations. I have ordered lab for in the morning and I have changed his fluids as appropriate. Will continue to monitor him closely and follow as needed. #[id number] [facility]
[2019-08-02] MEDS ORDERED: SODIUM CHL 0.9% 50ML MIN-BAG+ 50 ML IVPB ONE (11:53)
[2019-08-02] MEDS ORDERED: CEFEPIME 2 GM VIAL ONE (11:53)
[2019-08-02 13:07] VITALS: TEMP 98.1
[2019-08-02] MEDS ORDERED: METOPROLOL SUCCINATE XL 50 MG TAB PO SCH (13:31)
[2019-08-02] MEDS ORDERED: LISINOPRIL 10 MG TAB ONE (13:39)
[2019-08-02] MEDS ORDERED: LISINOPRIL 10 MG TAB PO SCH (13:45)
[2019-08-02 16:08] VITALS: BP 155/92; O2SAT 98
[2019-08-04] MEDS: DEX 5% W/NACL 0.9% 1000ML 1,000 ML IVS PRN (15:46)
--- NOTE | 2019-08-12 10:45 | DS ---
SUPERVISING PHYSICIAN: Yaz Schaeffer MD ADMISSION DIAGNOSIS: 1. Acute pancreatitis with CT findings concerning for a mass on the pancreatic head, unable to fully rule out an infectious process with the patient showing sepsis with leukocytosis, tachycardia with a longstanding history of pancreatitis. 2. Questionable diverticulitis versus enteritis. 3. Diabetes mellitus, type 2, on insulin, poorly controlled. 4. Hypertension, poorly controlled. 5. Chronic obstructive pulmonary disease with no signs of exacerbation. 6. Gastroesophageal reflux disease. 7. Obstructive sleep apnea, noncompliant with CPAP. 8. History of diverticulosis. 9. History of hepatitis C with treatment to cure. 10. Chronic back pain with history of T12, L1 and L2 fractures. 11. Peripheral neuropathy. 12. History of anemia. DISCHARGE DIAGNOSIS: 1. Acute abdominal pain secondary to pancreatitis, resolved with no noted complications. 2. Continued concerns for diverticulitis, patient showing improvement on antibiotics. 3. Sepsis secondary to #1 showing improvement with antibiotics and fluids. 4. Diabetes mellitus, type 2, on insulin, poorly controlled. 5. Hypertension, poorly controlled. 6. Chronic obstructive pulmonary disease with no signs or symptoms of exacerbation. 7. Gastroesophageal reflux disease. 8. Obstructive sleep apnea, noncompliant with CPAP. 8. History of diverticulosis. 9. History of hepatitis C with treatment to cure. 10. Chronic back pain. 11. Peripheral neuropathy. 12. History of anemia. REASON FOR HOSPITALIZATION: Mr. Alexander is a 59-year-old male patient with a history of pancreatitis and diverticulitis that presented to the Emergency Department today complaining of abdominal pain. He noted the pain had started about 4 days ago and gradually worsened in his epigastric region, but radiating across his upper abdomen into his left lower quadrant and back ranging 9 to 10 and noted to be constant and crampy. He does take a fentanyl patch 25 mcg for chronic back pain and is getting no significant relief. He was having some nausea, but not a significant amount of emesis. It is also noted that he had several episodes of loose stools this morning prior to visit in the ER, but denies any fever, chills, maggie blood, no chest pains, no reported dyspnea. He has been admitted in the past year 2 or 3 times for pancreatitis as well as for diverticulitis. In the Emergency Room, his laboratory studies showed he had a leukocytosis of 15,000 with a left shift. Hemoglobin 16.2 and hematocrit 48.6. Platelet count was within normal limits. Chemistry showed a mild hyponatremia at 132. Liver functions were all within normal limits. Pancreatic enzymes showed elevated lipase at 218, amylase 144. He was given IV fluids and pain medicine with good results. CT of the abdomen and pelvis with contrast was completed and per radiologic interpretation, there is note of findings suggestive of inflammation of the transverse and proximal descending colon with possible pancreatitis and possible pancreatic head mass. No other acute abnormalities noted. He was afebrile with initial temperature of 97.6 and hemodynamically stable with a blood pressure initially in the Emergency Room of 120/94 with some tachycardia at 120, saturation 92% on room air. Given the findings on his CT of the abdomen, the ER physician contacted Dr. Hoyos in regards to those findings and the suggestion is that the patient be admitted for treatment of acute pancreatitis and further followup on the possible pancreatic head mass. The patient is going to be admitted for continuation of treatment and evaluation. He was admitted in stable condition. MEDICAL CONSULTATION: Deep Hoyos MD, general surgeon. Please see his consultation note. LABORATORY: White count on admission 15,300, discharge 9,900. He did have a left shift which was improving prior to discharge. Hemoglobin and hematocrit were stable at 16.2 and 49.7. Chemistries on admission showed lipase 218, amylase 144. Prior to discharge, lipase was down to 136, amylase normalized to 57. Electrolytes were within normal limits. BUN 6, creatinine 0.66. Blood sugars were elevated between 84 up to 260. Liver functions showed just a slightly elevated AST at 44, otherwise within normal limits. Urinalysis showed 500 glucose. RADIOLOGY: Abdominopelvic CT on admission per radiologic interpretation showed findings suggestive of inflammation of the transverse and proximal descending colon, possible pancreatitis, possible pancreatic head mass. He had an abdominal ultrasound which showed pancreas heterogeneous echo, difficult to measure, no definite cyst or duct dilation. There was note of enlarged liver with steatosis. Please see that report for details. Abdominal x-ray on date of discharge showed nonobstructive, nonspecific bowel gas pattern. HOSPITAL COURSE: Mr. Alexander was admitted for acute pancreatitis and diverticulosis. He was kept NPO for bowel rest, given fluids, pain management, antiemetics and started on antibiotic coverage with concerns for possible sepsis and the diverticulitis. His antibiotic coverage included cefepime and Flagyl. He improved clinically well enough to advance to a diet. He was seen in consultation by Dr. Hoyos and was felt clinically stable enough to continue with outpatient management. PLAN: Mr. Alexander was discharged on 08/02/19 with instructions to followup with Dr. Love, wrap turner, and resume his home medications as instructed. He was given instructions to return to the hospital as needed. He has a followup appointment with Dr. Love on 08/12/19 at 09:30. Diet on discharge was low fat diet as tolerated, diabetic. Activity to increase as tolerated. He was encouraged to not drink and to stop smoking. Medications on discharge included: 1. Levaquin 500 mg daily for 5 days. 2. Flagyl 500 mg, #15, no refills. All other medications prior to hospital were continued as is. DISPOSITION: The patient was discharged home. CONDITION ON DISCHARGE: Stable and improved. #[id number] [facility]
== END 2019-08-02 16:09 | disposition home or self-care (01) | DRG 871 ==
LOC: ER 15:28 → OBSVTOIN 20:26 → MS 20:26
PROVIDERS: ADMIT Nurse Practitioner Family; ATTEND Nurse Practitioner Family
PROC: BW211ZZ Computerized Tomography (CT Scan) of Abdomen and Pelvis using Low Osmolar Contrast (ICD-10-PCS; principal; 2019-07-29)
DX: A41.9 Sepsis, unspecified organism (principal); K85.90 Acute pancreatitis without necrosis or infection, unspecified; K57.32 Diverticulitis of large intestine without perforation or abscess without bleeding; J44.9 Chronic obstructive pulmonary disease, unspecified; G89.29 Other chronic pain; K21.9 Gastro-esophageal reflux disease without esophagitis; I10 Essential (primary) hypertension; G47.33 Obstructive sleep apnea (adult) (pediatric); F17.210 Nicotine dependence, cigarettes, uncomplicated; Z79.4 Long term (current) use of insulin; Z88.5 Allergy status to narcotic agent; Z79.899 Other long term (current) drug therapy; E11.42 Type 2 diabetes mellitus with diabetic polyneuropathy; M54.9 Dorsalgia, unspecified; Z86.19 Personal history of other infectious and parasitic diseases; Z79.891 Long term (current) use of opiate analgesic

== ENCOUNTER 2019-08-10 08:13 | Inpatient (IN) | payer MEDICARE, MEDICAID ==
[2019-08-10] MEDS ORDERED: SODIUM CHLORIDE 0.9% (FLUSH) 10 ML SYG IV PRN ×2 (08:46→11:52)
[2019-08-10] MEDS ORDERED: FAMOTIDINE IV PREMIX 20 MG in PREMIX BAG 1 BAG IVPB ONE (08:46)
--- NOTE | 2019-08-10 08:50 | ED.PDOC ---
History of Present Illness - General Chief Complaint: GI Problem Stated Complaint: rectal bleeding Time Seen by Provider: 08/10/19 08:45 Information Source: patient Additional Information: Reports several episodes of painful bright red blood per rectum. Currently on Levaquin. Associated with midepigastric pain and LLQ pain. Recent reported hospitalization for pancreatitis. Denies chest pain, SOB, vomiting, fever, or other symptoms - History of Present Illness Abdominal Pain Onset Location: LLQ, epigastric Pain Radiation: no radiation Quality: moderate Timing/Duration: 1 week Improving Factors: nothing Worsening Factors: nothing Associated Symptoms: denies symptoms Review of Systems - Review of Systems Constitutional: States: no symptoms reported EENTM: States: no symptoms reported Respiratory: States: no symptoms reported Cardiology: States: no symptoms reported Gastrointestinal/Abdominal: States: see HPI, abdominal pain, nausea. Denies: constipation, vomiting Genitourinary: States: no symptoms reported Musculoskeletal: States: no symptoms reported Skin: States: no symptoms reported Past Medical History (General) - Patient Medical History Hx Seizures: No Hx Stroke: No Hx Dementia: No Hx Asthma: No Hx of COPD: Yes Hx Cardiac Disorders: Yes Hx Congestive Heart Failure: No Hx Pacemaker: No Hx Hypertension: Yes Hx Thyroid Disease: No Hx Diabetes: No Hx Gastroesophageal Reflux: Yes Hx Renal Disease: No Hx Cancer: No Hx of HIV: No Hx Hepatitis C: Yes Hx MRSA: No MRSA Source:: Wound - Vaccination History Hx Tetanus, Diphtheria Vaccination: Yes Hx Influenza Vaccination: Yes Hx Pneumococcal Vaccination: Yes - Social History Hx Tobacco Use: Yes Hx Chewing Tobacco Use: No Hx Alcohol Use: No Hx Substance Use: No Hx Substance Use Treatment: No Hx Depression: No Hx Physical Abuse: No Hx Emotional Abuse: No Hx Suspected Abuse: No - Female History Patient : No Family Medical History - Family History Mother Family History: Unknown Living Status: Age at (years of age): 47 Hx Family Hypertension: Yes Hx Cardiac Disease: Yes Physical Exam - Physical Exam General Appearance: Comfortable, No apparent distress Eyes, Ears, Nose, Throat Exam: PERRL/EOMI Neck: full range of motion, supple Respiratory: chest non-tender, lungs clear, normal breath sounds Cardiovascular/Chest: normal peripheral pulses, regular rate, rhythm, no edema Gastrointestinal/Abdominal: normal bowel sounds, non tender - very mild occassional pain in midepigastrium, soft Back Exam: normal inspection, no CVA tenderness Extremity: normal range of motion, no pedal edema Neurologic: manager lab II-XII nml as tested, alert Skin Exam: normal color, warm/dry Progress - Progress Progress: 08/10/19 10:51 Discussed labs, imaging, and workup with patient. Answered questions. Discussed with Mickey for admission, and he agreed for hospital placement. 08/10/19 11:04 Tomás Ambrocio MD #[id number] - EKG/XRAY/CT EKG: Sinus Comments: 0856 NSR rate of 97, normal axis, normal intervals, no acute ischemic lee Departure - Departure Clinical Impression: Colitis Time of Disposition: 11:03 Disposition: Admit Patient Condition: Fair Home Medications: Ambulatory Orders Amitriptyline HCl [Elavil] 100 mg PO BEDTIME 06/17/14 Citalopram Hydrobromide [Celexa] 40 mg PO QAM 06/17/14 Furosemide Tab [Lasix Tab] 40 mg PO DAILY PRN 06/17/14 Lisinopril 40 mg PO DAILY 06/17/14 Metoprolol Succinate [Toprol Xl] 100 mg PO BEDTIME 06/17/14 Insulin Lispro [Humalog] See Protocol SC AC 09/01/16 Insulin Glargine [Toujeo Solostar] 85 unit SC DAILY 08/29/17 Ondansetron [Zofran Odt] 4 mg PO Q4H PRN #30 tab 04/12/18 Atorvastatin Calcium [Lipitor] 20 mg PO DAILY 07/29/19 Clonidine HCl 0.1 mg PO PRN PRN 07/29/19 Glipizide [Glucotrol Xl] 10 mg PO DAILY 07/29/19 Temazepam 30 mg PO BEDTIME 07/29/19 fentaNYL PATCH 25 MCG/HR [Duragesic Patch 25 MCG/HR] 1 applic TOP Q3D 07/29/19 levoFLOXacin [Levaquin] 500 mg PO DAILY #5 tab 08/02/19 metroNIDAZOLE [Flagyl] 500 mg PO Q8H #15 tab 08/02/19 Decision To Admit - Decistion To Admit Decision to Admit Reason: Admit from ER Decision to Admit Date: 08/10/19 Decision to Admit Time: 11:01
[2019-08-10] MEDS ORDERED: FAMOTIDINE IV PREMIX 50 ML IVPB ONE (08:51)
[2019-08-10] MEDS ORDERED: HYDROmorphone HCL 2 MG TAB PO ONE ×2 (09:11→10:57)
[2019-08-10] MEDS ORDERED: SODIUM CHLORIDE 0.9% 1000ML 1,000 ML IVS ONE ×2 (09:45→10:27)
--- NOTE | 2019-08-10 10:38 | CT ---
EXAM DESCRIPTION: CT ABDOMEN AND PELVIS WITH CONTRAST CLINICAL HISTORY: LLQ and epigastric pain, history of pancreatitis COMPARISON: CT abdomen and pelvis most recent dated 07/29/2019. TECHNIQUE: CT of the abdomen and pelvis are performed after IV contrast administration. No oral contrast was given. Multiplanar reconstructions were obtained. FINDINGS: The lung bases are clear. The liver is normal in contour with diffuse fatty infiltration.. The gallbladder is unremarkable without calcified gallstone. No biliary ductal dilatation. The Spleen and kidneys are unremarkable. No hydronephrosis or nephrolithiasis. Nodular thickening of the bilateral adrenal glands, unchanged. Sequela from chronic pancreatitis with scattered pancreatic parenchymal calcification. No focal significant peripancreatic fat stranding to suggest acute pancreatitis on current examination. Surgical sutures/postsurgical changes at the level of the cecum are likely related to prior appendectomy. There is diffuse colitis with colonic wall thickening starting from the proximal transverse colon to the rectosigmoid junction. This is associated with mild injection/hyperemia of the vasa recta and haziness/stranding of the pericolonic fat. No bowel perforation or abscess. No bowel obstruction. No pathologically enlarged lymph node. No free fluid or free air. The bladder is unremarkable. The reproductive organs are unremarkable. Degenerative changes of the spine with upper lumbar spine hardware fixation. Right flank region spinal stimulator device. IMPRESSION: 1. Mild diffuse colitis involving the transverse and descending colon. Differential includes infectious or inflammatory colitis. No bowel perforation or abscess. 2. Sequela from chronic pancreatitis without focal acute pancreatic inflammation. 3. Hepatic steatosis. This exam was performed according to our departmental dose-optimization program, which includes automated exposure control, adjustment of the mA and/or kV according to patient size and/or use of iterative reconstruction technique. Electronically signed by: Klaus Gilbert DO 08/10/2019 10:37 AM [facility]
[2019-08-10] MEDS ORDERED: PIPERACILLIN/TAZOBACTAM 4.5 GM in SODIUM CHLORIDE 0.9% 100ML 100 ML IVPB ONE (10:42)
[2019-08-10] MEDS ORDERED: PIPERACILLIN/TAZOBACTAM 2.25 GM VIAL IVPB ONE (10:54)
[2019-08-10] MEDS ORDERED: SODIUM CHLORIDE 0.9% 100ML 100 ML IVPB ONE (10:54)
[2019-08-10] MEDS ORDERED: ONDANSETRON INJ 4 MG/2 ML VIAL IV PRN (11:52)
[2019-08-10] MEDS ORDERED: ACETAMINOPHEN 325 MG TAB PO PRN (11:52)
[2019-08-10] MEDS ORDERED: DEXTROSE 50% 25 GM/50 ML SYG IV PRN (12:09)
[2019-08-10] MEDS ORDERED: GLUCAGON INJ 1 MG VIAL SUBCU PRN (12:09)
[2019-08-10] MEDS: levoFLOXacin 750MG IV 750 MG in PREMIX BAG 1 BAG IVPB SCH (12:40)
[2019-08-10] MEDS: IV SET AND CAP CHANGE INJ INJ SCH (12:40)
[2019-08-10] MEDS ORDERED: metroNIDAZOLE IV PREMIX 500MG 100 ML IVPB ONE ×3 (13:34→20:34)
[2019-08-10] MEDS: metroNIDAZOLE IV PREMIX 500MG 500 MG in PREMIX BAG 1 BAG IVPB SCH ×2 (14:15→21:57)
[2019-08-10] MEDS: HYDROmorphone HCL INJ 2 MG/ML VIAL IV PRN ×2 (14:55→18:49)
--- NOTE | 2019-08-10 15:57 | HP ---
SUPERVISING PHYSICIAN: Mrogan Lloyd MD CHIEF COMPLAINT: 1. Left lower quadrant pain. 2. Bright red blood per rectum. HISTORY OF PRESENT ILLNESS: Mr. Nathan Alexander is a 59-year-old male patient who presented to the Emergency Room today complaining of left lower quadrant pain with bright red blood per rectum. He was recently in the hospital for treatment of diverticulitis, questionable colitis, along with pancreatitis and was on Levaquin and Flagyl at home. He noted he was feeling well up until yesterday and he started having some discomfort and this morning he noted his pain was worse and he was having some bleeding per rectum. On presentation to the Emergency Room, his laboratory studies showed he had a white count of 19,700 with a left shift, hemoglobin 17,000, hematocrit 52.5. Chemistries showed his blood sugar was 393 with sodium 129 corrected to 136 with hyperglycemia with mildly elevated potassium at 5.5. BUN 20, creatinine 1.56. He had one stool occult that was positive. Hemoglobin [address] of his abdomen and pelvis showed mild diffuse colitis involving the transverse and descending colon with differential to include infectious or inflammatory colitis but no bowel perforation or abscess was noted. There was note sequelae from chronic pancreatitis without focal acute pancreatic inflammation as well as hepatic steatosis. Given that his hemoglobin appears to be not severely anemic and his blood pressure was stable and he was not tachycardic with his symptoms for colitis, he is going to be admitted now for treatment of colitis and further evaluation. He was admitted in stable condition. PAST MEDICAL HISTORY: 1. Diabetes mellitus, type 2, on insulin therapy. 2. Chronic obstructive pulmonary disease. 3. History of T12, L1 and L2 fractures. 4. Chronic back pain secondary to #3. 5. Gastroesophageal reflux disease. 6. Hypertension. 7. Obstructive sleep apnea, noncompliant with use of CPAP. 8. Diverticulosis. 9. Hepatitis C treated and cleared. 10. Peripheral neuropathy 11. History of complicated diabetic wounds with amputation of the left foot, requiring long-term IV antibiotics. 12. History of septic shoulder which required long-term vancomycin. 13. History of anemia. PAST SURGICAL HISTORY: 1. Left toe amputation secondary to osteomyelitis. 2. Bilateral inguinal hernia repairs. 3. Lumbar spine surgery. 4. Left orchiopexy. 5. Right and left rotator cuff surgery. 6. Colonoscopy within the last 3 months which showed diverticulitis with some polyps. CURRENT MEDICATIONS: 1. Fentanyl patch 25 mcg every hour, every third day. 2. Temazepam 30 mg at bedtime. 3. Zofran 4 mg ODT. 4. Toprol 100 mg at bedtime. 5. Lisinopril 40 mg daily. 6. Sliding scale insulin. 7. Toujeo 85 units daily. 8. Glipizide 10 mg daily. 9. Lasix 40 mg as needed. 10. Clonidine 0.1 mg as needed. 11. Celexa 40 mg daily. 12. Lipitor 20 mg daily. 13. Elavil 100 mg at bedtime. ALLERGIES: MORPHINE. FAMILY HISTORY: Father is reported healthy. He has one brother at 41 from complications from stable cleaner ingestion as a child with continued problems through his adulthood. Mother at age 47 from a myocardial infarction. SOCIAL HISTORY: The patient continues to smoke about a half pack of cigarettes per day. He does not drink any significant alcohol or use illicit drugs, however, he does have a history of methamphetamine, barbiturates, cocaine and marijuana use in the past. He is and has 2 children. REVIEW OF SYSTEMS: CONSTITUTIONAL: Negative for any fevers, chills or unintentional weight loss. He does have general malaise. HEENT: Negative for headaches, sore throats, earaches, nasal congestion. RESPIRATORY: Denies cough, hemoptysis, chest pains, shortness of breath. CARDIOVASCULAR: Negative for chest pain, palpitations or syncopal episodes. GASTROINTESTINAL: Positive for some left lower quadrant pain and as noted in history of present illness bright red blood per rectum. GENITOURINARY: Negative for dysuria, hematuria, polyuria. MUSCULOSKELETAL: Positive for chronic back pain. No reported joint aches or joint swelling. ENDOCRINE: Negative for polydipsia, polyuria or polyphagia. He does have some issue with poorly control of his blood sugars on insulin. NEUROLOGIC: Denies syncopal episodes, paresthesias, seizures, ataxia or other neurologic deficits. PHYSICAL EXAMINATION: VITAL SIGNS: Temperature 97.7, pulse 84. Blood pressure 119/77. Respiratory rate 18. Saturation 95% on room air. GENERAL: The patient appears unwell but in no acute distress. He is alert. HEENT: Tympanic membranes clear bilaterally. Oropharynx is pink, moist without any lesions. NECK: Supple, nontender with full range of motion. No jugular venous distention. CHEST: Lungs clear to auscultation bilaterally without any rhonchi, wheezes or rales. HEART: Regular rate and rhythm without murmurs, gallops, or rubs. ABDOMEN: Soft with tenderness noted in the epigastric region and down into the left upper quadrant. No rebound tenderness or point tenderness. Bowel sounds are active. RECTAL: Exam deferred as it was done in the Emergency Room by the physician with no reported melana or bright red blood or hemorrhoids noted. EXTREMITIES: There is no cyanosis, clubbing or edema. NEUROLOGIC: The patient is alert and oriented times three. LABORATORY: White count 19,700 with a hemoglobin of 17,000, hematocrit 50.5, platelet count 253,000. Differential shows a left shift. His coagulation studies showed normal PT/PTT. Chemistry showed a sodium of 129, glucose 393, correcting his sodium of 136. Potassium 5.5. Anion gap was slightly elevated at 21.5 with BUN of 30, creatinine 1.56. Liver functions were pending but his amylase and lipase were normal. Urinalysis showed 500 glucose, otherwise was within normal limits. He had one occult blood that was positive on stool. MICROBIOLOGY: Blood cultures pending. RADIOLOGY: Abdominal/pelvic CT showed mild diffuse colitis involving the transverse and descending colon with sequelae, noting some chronic pancreatitis without focal acute pancreatic inflammation. There was note of hepatic steatosis. ASSESSMENT: 1. Acute left lower quadrant abdominal pain with findings on CT consistent with colitis, infectious versus inflammatory. Patient recently been on antibiotic coverage. 2. Leukocytosis symmetric to #1. 3. Recent hospitalization for acute pancreatitis with normal lipase and amylase on admission. No signs of acute pancreatitis at this time. 4. Diabetes mellitus, type 2, on insulin, poorly controlled. 5. Hypertension, poorly controlled. 6. Chronic obstructive pulmonary disease with no signs of exacerbation. 7. Gastroesophageal reflux disease. 8. Obstructive sleep apnea, noncompliant with CPAP. 9. History of diverticulosis with findings of colitis. No actual diverticulitis noted on CT. 10. History of hepatitis C with treatment to cure. 11. Chronic back pain with history of T12, L1 and L2 fractures. 12. Peripheral neuropathy. 13. History of anemia. PLAN: Mr. Alexander is going to be admitted for initiation of treatment of colitis. He will be started on antibiotics to include Levaquin and Flagyl. Will give him pain medication with Dilaudid as needed. He will be on Zofran for nausea. He will be on bowel rest and fluids. Will follow his hemoglobin and hematocrit for the next 12 hours, every 4 hours to make sure he is not actually having a bleed per rectum. Will also look, given the fact that he has been treated in the last several days with apparent failure of treatment, the possibility that this might be colitis and inflammatory response, will be given a mesalamine retention enema, 4 grams at bedtime, to see if this will help with his symptomatology. Will anticipate his length of stay to be at least 2 to 3 days. Until the patient can transition to outpatient management, we will continue to monitor and treat as needed. #[id number] [facility]
[2019-08-10] MEDS: SODIUM CHLORIDE 0.9% 1000ML 1,000 ML IVS PRN (16:40)
[2019-08-10] MEDS: INSULIN LISPRO 100 UNITS/ML PEN SUBCU SCH (18:11)
[2019-08-11] MEDS: HYDROmorphone HCL INJ 2 MG/ML VIAL IV PRN ×6 (00:05→20:34)
[2019-08-11] MEDS: INSULIN LISPRO 100 UNITS/ML PEN SUBCU SCH ×4 (02:17→18:24)
[2019-08-11] MEDS: SODIUM CHLORIDE 0.9% 1000ML 1,000 ML IVS PRN ×2 (02:18→10:54)
[2019-08-11] MEDS: metroNIDAZOLE IV PREMIX 500MG 500 MG in PREMIX BAG 1 BAG IVPB SCH ×3 (05:23→22:02)
--- NOTE | 2019-08-11 07:53 | RAD ---
PROCEDURE: XR Abdomen, 2 Views CLINICAL INDICATION: The patient is 59 years old and is Male; colitis MAIN TECHNIQUE: Frontal view of the abdomen/pelvis with upright view of the abdomen. COMPARISON: Prior study from 08/02/2019 FINDINGS: INTRAPERITONEAL SPACE: No free intraperitoneal air noted. GASTROINTESTINAL TRACT: No disproportionate bowel distention is seen. BONES/JOINTS: Postsurgical changes of the upper lumbar spine. There are degenerative changes of the spine identified. TUBES, LINES AND DEVICES: Spinal stimulator noted in place. OTHER FINDINGS: No abnormal genitourinary calcifications are identified. IMPRESSION: Negative for signs of bowel obstruction. Electronically signed by: Kenny Simpson MD 08/11/2019 7:50 AM INCIDENT RESPONSE MANAGER
[2019-08-11] MEDS ORDERED: LACTATED RINGERS 1,000 ML IVS ONE (12:33)
[2019-08-11] MEDS ORDERED: PROMETHAZINE HCL INJ 12.5 MG in SODIUM CHLORIDE 0.9% 50ML 50 ML IVPB ONE (12:34)
[2019-08-11] MEDS ORDERED: PROMETHAZINE HCL INJ 25 MG/ML VIAL ONE (12:37)
[2019-08-11] MEDS ORDERED: SODIUM CHLORIDE 0.9% 50ML 50 ML ONE (12:37)
[2019-08-11] MEDS: levoFLOXacin 750MG IV 750 MG in PREMIX BAG 1 BAG IVPB SCH (13:34)
[2019-08-11] MEDS ORDERED: metroNIDAZOLE IV PREMIX 500MG 100 ML IVPB ONE ×3 (14:49→19:51)
[2019-08-11] MEDS: KCL 20MEQ/D5NS 1,000 ML IVS PRN (17:31)
--- NOTE | 2019-08-11 20:43 | PN ---
DATE: 08/11/19 SUPERVISING PHYSICIAN: Morgan Lloyd M.D. SUBJECTIVE: The patient still notes that he is having left sided pain but it seems a little bit less than yesterday. Still passing a little bit of bright red blood per rectum but not quite as often. His H&H did stay stable after admission. He does continue to have a little nausea. No chest pains. OBJECTIVE: VITAL SIGNS: Temperature 98.3, pulse 94, blood pressure 119/83, respirations 18, satting 94% on room air. GENERAL: The patient does appear unwell but looks to be in no acute distress. He is alert. CHEST: Lung sounds are clear to auscultation. HEART: Regular rate and rhythm. ABDOMEN: Soft with tenderness noted on the epigastric down to the left lower quadrant. No rebound tenderness. No guarding. Bowel sounds are active. NEUROLOGIC: He is alert and oriented times three. LABORATORY: White count is down to 11,300, hemoglobin 13.5, hematocrit 41.5, platelet count 175,000. Chemistries show sodium 132 corrected for hyperglycemia with glucose of 171 to 134. Creatinine is 0.68. Blood sugars range between 132 to 297. Liver functions are showing to be within normal limits. MICROBIOLOGY: Blood cultures are pending. Stool culture is pending. C- Difficile pending. RADIOLOGY: Abdomen series per radiology interpretation is negative for signs of bowel obstruction. ASSESSMENT: 1. Acute left lower quadrant abdominal pain with CT findings consistent with colitis of the transverse and descending colon, likely infectious but cannot completely rule out inflammatory with cultures pending with the patient having a history of recently being on antibiotics for acute diverticulitis and pancreatitis. 2. Leukocytosis symmetric to #1, improving with antibiotics. 3. Recent hospitalization for acute pancreatitis with no acute signs on current admission. 4. Mild electrolyte imbalance with hyponatremia. 5. Diabetes mellitus, type 2, on insulin, poorly controlled. 6. Hypertension, poorly controlled. 7. Chronic obstructive pulmonary disease with no signs of exacerbation. 8. Gastroesophageal reflux disease. 9. Obstructive sleep apnea, noncompliant with CPAP. 10. History of diverticulosis with findings of colitis. No actual diverticulitis noted on CT. 11. History of hepatitis C with treatment to cure. 12. Chronic back pain with history of T12, L1 and L2 fractures. 13. Peripheral neuropathy. 14. History of anemia. PLAN: Will continue current plan at this point with keeping him NPO on fluids and antibiotic coverage with Levaquin and Flagyl. Will await stool studies, blood cultures and C-Difficile. His H&H appears to be stable. Will follow it daily or if he has any acute changes certainly will follow as needed. At this point, I am going to leave him off Lovenox due to the bright red blood and cannot completely rule out an acute bleed. The patient was offered mesalamine retention enemas, however the hospital does not carry more formulary and the family did not wish to pay for the prescription. Will hold off on any steroids given he is diabetic and he seems to be improving somewhat. Hopefully will be able to advance his diet tomorrow and transition to outpatient management within the next 24 to 48 hours. Until we do transition to outpatient management will continue to monitor and treat as needed. #[id number] [facility]
[2019-08-12] MEDS: INSULIN LISPRO 100 UNITS/ML PEN SUBCU SCH ×4 (00:13→18:37)
[2019-08-12] MEDS: HYDROmorphone HCL INJ 2 MG/ML VIAL IV PRN ×6 (00:14→21:31)
[2019-08-12] MEDS: VANCOMYCIN ORAL LIQUID 2,000 MG/80 ML BOTTLE PO SCH ×4 (00:20→17:56)
[2019-08-12] MEDS: KCL 20MEQ/D5NS 1,000 ML IVS PRN ×4 (00:28→22:01)
[2019-08-12] MEDS ORDERED: cloNIDine HCL 0.1 MG TAB PO ONE (00:48)
[2019-08-12] MEDS ORDERED: AMITRIPTYLINE HCL 100 MG PO SCH (00:49)
[2019-08-12] MEDS ORDERED: METOPROLOL SUCCINATE XL 100 MG TAB PO ONE (00:58)
[2019-08-12] MEDS ORDERED: AMITRIPTYLINE HCL 25 MG TAB ONE (00:58)
[2019-08-12] MEDS ORDERED: LISINOPRIL 10 MG TAB ONE ×2 (00:59→06:56)
[2019-08-12] MEDS: NON-FORMULARY MEDICATION 1 EA MIS (Lisinopril [Lisinopril] 40 MG) PO SCH ×2 (01:03→08:55)
[2019-08-12] MEDS: METOPROLOL SUCCINATE XL 50 MG TAB PO SCH ×2 (01:04→21:31)
[2019-08-12] MEDS: metroNIDAZOLE IV PREMIX 500MG 500 MG in PREMIX BAG 1 BAG IVPB SCH (05:45)
[2019-08-12] MEDS: ENOXAPARIN SODIUM 40 MG/0.4 ML SYG SUBCU SCH (08:56)
[2019-08-12] MEDS: LISINOPRIL 10 MG TAB PO SCH (08:57)
[2019-08-12] MEDS ORDERED: fentaNYL PATCH 25 MCG/HR 1 EA PATCH TOP SCH (09:00)
[2019-08-12] MEDS: CITALOPRAM HBR 20 MG TAB PO SCH (09:00)
--- NOTE | 2019-08-12 15:45 | PN ---
SUPERVISING PHYSICIAN: David Alexis MD DATE: 08/12/19 SUBJECTIVE: The patient had a positive C. difficile last night and was started on vancomycin orally. This morning, he notes his pain is still present, but not quite as severe. He is not having any nausea and he wants to try to see if he can do some clear liquids. He has been afebrile. White count is normalized. OBJECTIVE: VITAL SIGNS: T-max 99.1. Pulse 80. Blood pressure 112/73. Respirations 15. Saturation 92% on room air. GENERAL: The patient is resting comfortably and does not appear to be an any acute distress. CHEST: Clear to auscultation. HEART: Regular rate and rhythm. ABDOMEN: Soft with continued tenderness diffusely on the left side. No rebound tenderness. No point tenderness. Bowel sounds are active. EXTREMITIES: No edema. NEUROLOGIC: He is alert and oriented times three. LABORATORY: Hemoglobin stable at 14.4 and hematocrit 45.2. Blood sugars are ranging between 120 and 212. Electrolytes yesterday were fairly normal, just mildly sodium 132. MICROBIOLOGY: Stool occult blood was positive on admission and C. difficile toxin by PCR is pending. Stood culture pending Clostridium difficile toxin A and B showed positive for C. difficile antigen, negative for toxin A and B. Blood cultures remain negative at 48 hours. ASSESSMENT: 1. Clostridium difficile colitis on oral vancomycin with stool culture pending. 2. Recent hospitalization for acute appendicitis and diverticulitis, previously on Levaquin and Flagyl. 3. Mild electrolyte imbalance with hyponatremia, likely chronic. 4. Diabetes mellitus, type 2, on insulin, poorly controlled. 5. Hypertension, poorly controlled. 6. Chronic obstructive pulmonary disease with no signs of exacerbation. 7. Gastroesophageal reflux disease. 8. Obstructive sleep apnea, noncompliant with CPAP. 9. History of diverticulosis with findings of colitis. No actual diverticulitis noted on CT. 10. History of hepatitis C with treatment to cure. 11. Chronic back pain with history of T12, L1 and L2 fractures. 12. Peripheral neuropathy. 13. History of anemia. PLAN: I have switched him to oral vancomycin 125 mg q.6h. He will need it for 10 days. I will discontinue his Flagyl as well as Levaquin. We are going to start him on some clear liquids and hopefully be able to advance him tomorrow. He still remains on Dilaudid for pain management and IV fluids. As he advances his p.o. intake, we will discontinue his fluids as appropriate. He is on Lovenox now for DVT prophylaxis. I would anticipate that he can probably discharge tomorrow. We have made arrangements for at least 4 days of continued vancomycin orally at discharge, but we will need for an additional 6 days after that and keep in mind that the capsules are quite expensive, a 6-day course would probably be close to $2,000. We need to talk to Mica and see if she can arrange for this because we have done this in the past to ensure that he can complete his therapy. He will also need to followup with Dr. Love as he missed his appointment today. Until the patient can transition to outpatient management, we will continue to monitor and treat as needed. #[id number] [facility]
[2019-08-12] MEDS ORDERED: AMITRIPTYLINE HCL 25 MG TAB PO SCH (21:00)
[2019-08-12] MEDS ORDERED: TEMAZEPAM 15 MG CAP PO SCH (21:00)
[2019-08-12] MEDS ORDERED: ATORVASTATIN 20 MG TAB PO SCH (21:00)
[2019-08-13] MEDS: VANCOMYCIN ORAL LIQUID 2,000 MG/80 ML BOTTLE PO SCH ×3 (00:10→12:43)
[2019-08-13] MEDS: INSULIN LISPRO 100 UNITS/ML PEN SUBCU SCH ×3 (00:17→12:40)
[2019-08-13] MEDS: HYDROmorphone HCL INJ 2 MG/ML VIAL IV PRN ×2 (03:46→08:41)
[2019-08-13] MEDS: KCL 20MEQ/D5NS 1,000 ML IVS PRN (04:07)
[2019-08-13] MEDS: ENOXAPARIN SODIUM 40 MG/0.4 ML SYG SUBCU SCH (08:42)
[2019-08-13] MEDS: CITALOPRAM HBR 20 MG TAB PO SCH (08:42)
[2019-08-13] MEDS: LISINOPRIL 10 MG TAB PO SCH (08:42)
[2019-08-13] MEDS ORDERED: HYDROcodone 5MG/APAP 325MG 1 EA TAB PO ONE (12:42)
[2019-08-13] MEDS: IV SET AND CAP CHANGE INJ INJ SCH (13:02)
[2019-08-13 13:06] VITALS: BP 127/82; TEMP 98; O2SAT 95
--- NOTE | 2019-08-14 11:40 | DS ---
SUPERVISING PHYSICIAN: David Alexis MD DISCHARGE DIAGNOSES: 1. Acute left lower quadrant abdominal pain with CT findings consistent with colitis of the transverse and descending colon, likely infectious but cannot completely rule out inflammatory with cultures pending with the patient having a history of recently being on antibiotics for acute diverticulitis and pancreatitis. 2. Leukocytosis symmetric to #1, improving with antibiotics. 3. Recent hospitalization for acute pancreatitis with no acute signs on current admission. 4. Mild electrolyte imbalance with hyponatremia. 5. Diabetes mellitus, type 2, on insulin, poorly controlled. 6. Hypertension, poorly controlled. 7. Chronic obstructive pulmonary disease with no signs of exacerbation. 8. Gastroesophageal reflux disease. 9. Obstructive sleep apnea, noncompliant with CPAP. 10. History of diverticulosis with findings of colitis. No actual diverticulitis noted on CT. 11. History of hepatitis C with treatment to cure. 12. Chronic back pain with history of T12, L1 and L2 fractures. 13. Peripheral neuropathy. 14. History of anemia. HISTORY OF PRESENT ILLNESS: This is a 59-year-old male patient who came to the Emergency Room on the day of admission complaining of left lower quadrant pain with bright red blood per rectum. He was recently in the hospital for treatment of diverticulitis with questionable colitis along with pancreatitis and was on Levaquin and Flagyl at home. He was feeling fairly well up until the day prior to his admission when he was having some rectal bleeding. In the Emergency Room, his laboratory studies showed a white count of 19,700 with a left shift, hemoglobin 17,000, hematocrit 52.5. Chemistries showed his blood sugar was 393 with sodium 129 corrected to 136 with hyperglycemia and mildly elevated potassium at 5.5. BUN was 20, creatinine 1.56. He had one stool for occult blood that was positive. CT of his abdomen and pelvis showed mild diffuse colitis involving the transverse and descending colon with differential to include infectious or inflammatory colitis but no bowel perforation or abscess was noted. There was noted sequelae from chronic pancreatitis without focal acute pancreatic inflammation as well as hepatic steatosis. He was not severely anemic and his vital signs were stable. He was admitted to the hospital to be treated for colitis. He was admitted in stable condition. HOSPITAL COURSE: He was started on antibiotics that included Levaquin and Flagyl, given pain medication with Dilaudid as needed. He will be on Zofran for nausea. He was also placed on bowel rest with fluids. His hemoglobin and hematocrit were monitored closely over the next 12 to 24 hours. He was given a mesalamine retention enema. His pain continued and he had a small amount of bright red blood per rectum but it did improve. His hemoglobin and hematocrit remained stable. His stool studies were completed. The mesalamine enemas were held due to cost. His diet was totally advanced and he tolerated it without any problems. His stool studies came back positive for C-difficile antigen and he was started on vancomycin orally. His Flagyl and Levaquin were discontinued. His fluids were then discontinued as he tolerated his diet. He was then placed on Lovenox for DVT prophylaxis. Initially, it was thought that the vancomycin capsules were quite expensive and were going to cost well over $2,000 dollars but [facility] carries [facility] prescriptions and he was able to get the prescription from them for less than $220.00. On his previous hospital admission, there was a questionable mass in the head of the pancreas. Dr. Love, GI doctor from [place], was given his chart to review and he recommended the patient followup as soon as possible with his GI doctor, Dr. Crawley in [place]. His diet has been tolerated, his fluids have been discontinued. His IV medications have been discontinued, the fund of source for his vancomycin is affordable and he will be discharged home today in stable condition. LABORATORY: WBC initially started at 19,700 and today are 11,300. Initially, he had a hemoglobin of 17 and hematocrit 52.5. Today it is hemoglobin 14.1 and hematocrit 45.2. His sodium improved to 132 with potassium at 3.9. BUN was 30 on admission and is now 16. Creatinine was 1.56 on admission and is now 0.68. Liver functions were basically within normal limits with the exception of his serum protein that was low at 5.8. Albumin was low at 2.9. Urinalysis was negative, Abdomen/pelvis CT is as per the history of present illness. Followup abdominal x-ray showed negative for signs of bowel obstruction. DISCHARGE PLAN: The patient will be discharged home in stable condition. He is to have a diabetic bland diet. He is to increase his activity as tolerated. He is to see Dr. Crawley within one to two weeks. If he has not received a call from Dr. Crawley's office, he is to call his office and make an appointment. Progress notes, history and physical and radiology reports were sent to Dr. Crawley's office via fax today at the request of [place]. Her fax number is [phone]. Also sent his oral vancomycin to [facility]. He will have 10 total days of vancomycin orally. He is also to have the appointment with Dr. Crawley in [place]. He is to return to the hospital or followup with Dr. Lopez or his GI doctor, for any complications. DISCHARGE MEDICATIONS: 1. Metoprolol. 2. Lisinopril. 3. Furosemide. 4. Citalopram. 5. Amitriptyline. 6. Lispro insulin. 7. Glargine insulin. 8. Zofran. 9. Clonidine. 10. Glipizide. 11. Pravastatin. 12. Fentanyl patch. 13. Temazepam. 14. Mesalamine enemas. 15. Vancomycin oral. #[id number] [facility]
[2019-08-15] MEDS ORDERED: REMOVE OLD PATCH TOP SCH (09:00)
== END 2019-08-13 13:25 | disposition home or self-care (01) | DRG 372 ==
LOC: ER 08:13 → OBSVTOIN 11:11 → MS 11:11
PROVIDERS: ADMIT Nurse Practitioner Family; ATTEND Nurse Practitioner Acute Care
PROC: BW211ZZ Computerized Tomography (CT Scan) of Abdomen and Pelvis using Low Osmolar Contrast (ICD-10-PCS; principal; 2019-08-10)
DX: A04.72 Enterocolitis due to Clostridium difficile, not specified as recurrent (principal); E87.1 Hypo-osmolality and hyponatremia; K62.5 Hemorrhage of anus and rectum; E11.42 Type 2 diabetes mellitus with diabetic polyneuropathy; I10 Essential (primary) hypertension; J44.9 Chronic obstructive pulmonary disease, unspecified; K21.9 Gastro-esophageal reflux disease without esophagitis; G47.33 Obstructive sleep apnea (adult) (pediatric); G89.29 Other chronic pain; E11.65 Type 2 diabetes mellitus with hyperglycemia; F17.210 Nicotine dependence, cigarettes, uncomplicated; Z91.19 Patient's noncompliance with other medical treatment and regimen; Z79.84 Long term (current) use of oral hypoglycemic drugs; Z88.5 Allergy status to narcotic agent; Z79.899 Other long term (current) drug therapy; Z79.891 Long term (current) use of opiate analgesic

== ENCOUNTER → 2019-08-23 | Outpatient (CLI) | payer MEDICARE, MEDICAID | LOC: LAB.O 15:20 | PROVIDERS: ATTEND Internal Medicine | DX: E87.5 Hyperkalemia (principal); D58.2 Other hemoglobinopathies ==

== ENCOUNTER 2019-12-22 18:18 | Emergency (ER) | payer MEDICARE, MEDICAID ==
--- NOTE | 2019-12-22 19:39 | RAD ---
EXAM DESCRIPTION: Chest,1 View CLINICAL HISTORY: 59 years Male recent rahel, spitting up blood COMPARISON: August 10, 2019. TECHNIQUE: AP view of the chest was obtained. FINDINGS: Cardiac size is within normal limits. Central vessels are not increased. No infiltrates or effusions seen. No consolidation. No pneumothorax. Minimal chronic change lower lungs bilaterally. IMPRESSION: No active disease. Electronically signed by: Magalis Mcfarlane MD 12/22/2019 7:37 PM CDT
[2019-12-22] MEDS ORDERED: INSULIN LISPRO 100 UNITS/ML PEN SUBCU ONE (19:41)
--- NOTE | 2019-12-22 19:46 | ED.PDOC ---
History of Present Illness - General Chief Complaint: Respiratory Problem Stated Complaint: coughing blood Time Seen by Provider: 12/22/19 18:20 Source: patient Exam Limitations: no limitations - History of Present Illness Initial Comments: The patient is a 59-year-old male presented emergency room secondary to spitting up some blood for the last couple of hours. He is not really coughing up the blood he is not vomiting it up. He was simply able to spit it up. No trauma today but he does have poor dentition. The patient had his gallbladder out 6 days ago. His abdominal wounds appear to be healing well and his abdomen is not unduly uncomfortable to palpation. No vomiting. No fever. Vital signs are stable. He is pleasant and cooperative and in no distress. Timing/Duration: 1 hour Severity: mild Improving Factors: nothing Worsening Factors: nothing Associated Symptoms: denies symptoms Allergies/Adverse Reactions: Allergies Morphine Allergy (Verified 04/09/18 12:27) Other Makes him "delerious, nuts" Home Medications: Ambulatory Orders Amitriptyline HCl [Elavil] 100 mg PO BEDTIME 06/17/14 Citalopram Hydrobromide [Celexa] 40 mg PO QAM 06/17/14 Furosemide Tab [Lasix Tab] 40 mg PO DAILY PRN 06/17/14 Lisinopril 40 mg PO DAILY 06/17/14 Metoprolol Succinate [Toprol Xl] 100 mg PO BEDTIME 06/17/14 Insulin Lispro [Humalog] See Protocol SC AC 09/01/16 Insulin Glargine [Toujeo Solostar] 85 unit SC DAILY 08/29/17 Ondansetron [Zofran Odt] 4 mg PO Q4H PRN #30 tab 04/12/18 Atorvastatin Calcium [Lipitor] 20 mg PO DAILY 07/29/19 Clonidine HCl 0.1 mg PO PRN PRN 07/29/19 Glipizide [Glucotrol Xl] 10 mg PO DAILY 07/29/19 Temazepam 30 mg PO BEDTIME 07/29/19 fentaNYL PATCH 25 MCG/HR [Duragesic Patch 25 MCG/HR] 1 applic TOP Q3D 07/29/19 Mesalamine W/ Cleanser [Rowasa] 4 gm MS BEDTIME #1 kit 08/10/19 Vancomycin HCl [Vancocin HCl] 125 mg PO Q6H #36 cap 08/13/19 Review of Systems - Review of Systems Constitutional: States: no symptoms reported EENTM: States: see HPI Respiratory: States: no symptoms reported Cardiology: States: no symptoms reported Gastrointestinal/Abdominal: States: no symptoms reported Genitourinary: States: no symptoms reported Musculoskeletal: States: no symptoms reported Skin: States: no symptoms reported Neurological: States: no symptoms reported Endocrine: States: no symptoms reported Hematologic/Lymphatic: States: easy bleeding All other Systems: No Change from Baseline Past Medical History (General) - Patient Medical History Hx Seizures: No Hx Stroke: No Hx Dementia: No Hx Asthma: No Hx of COPD: Yes Hx Cardiac Disorders: Yes Hx Congestive Heart Failure: No Hx Pacemaker: No Hx Hypertension: Yes Hx Thyroid Disease: No Hx Diabetes: No Hx Gastroesophageal Reflux: Yes Hx Renal Disease: No Hx Cancer: No Hx of HIV: No Hx Hepatitis C: Yes Hx MRSA: No MRSA Source:: Wound Surgical History: other - Vaccination History Hx Tetanus, Diphtheria Vaccination: Yes Hx Influenza Vaccination: Yes Hx Pneumococcal Vaccination: Yes - Social History Hx Tobacco Use: Yes Hx Chewing Tobacco Use: No Hx Alcohol Use: No Hx Substance Use: No Hx Substance Use Treatment: No Hx Depression: No Hx Physical Abuse: No Hx Emotional Abuse: No Hx Suspected Abuse: No - Female History Patient : No Family Medical History - Family History Mother Family History: Unknown Living Status: Age at (years of age): 47 Hx Family Hypertension: Yes Hx Cardiac Disease: Yes Physical Exam - Physical Exam General Appearance: Alert, Comfortable, No apparent distress Eye Exam: bilateral normal Ears, Nose, Throat: hearing grossly normal, other - Patient has poor dentition and he has what appears to be blood coming from behind 1 of his front incisors. It is controlled at this point. Neck: full range of motion, supple Respiratory: lungs clear, normal breath sounds, no respiratory distress, no accessory muscle use Cardiovascular/Chest: normal peripheral pulses, regular rate, rhythm, no edema Peripheral Pulses: radial,right: 2+, radial,left: 2+ Gastrointestinal/Abdominal: non tender - Surgical sites are healing appropriately, soft Rectal Exam: deferred Back Exam: no CVA tenderness, no vertebral tenderness Extremity: normal range of motion, non-tender, normal inspection, no pedal edema, normal capillary refill Neurologic: shoeshiner II-XII nml as tested, alert, normal mood/affect, oriented x 3 Skin Exam: normal color Comments: Vital Signs - 24 hr 12/22/19 18:24 Temperature 98.5 F Pulse Rate [ 82 left brachial] Blood Pressure 152/97 [left brachial] O2 Sat by Pulse 95 Oximetry Progress - Progress Progress: 12/22/19 19:47 The patient is a 59-year-old male presented emergency room secondary to spitting up some blood for the last couple of hours. I believe this is most likely coming from the area behind 1 of his bottom incisors. It is largely hemostatic at this point. See no evidence of any other source of current bleeding. X-ray is reassuring. Hemoglobin levels, platelet levels and coags are all within normal limits. Vital signs are stable. It is possible that he may have had a little bit of bleeding from a site where the endotracheal tube rubbed from his surgery earlier in the week. He appears to be doing well at this point. Obviously if there is any significant worsening then he needs to return here. Keep follow-up with a dentist. ER warnings are given. alek peguero [phone] - Results/Orders Results/Orders: Chest x-ray shows no acute pathology. Laboratory Tests 12/22/19 12/22/19 12/22/19 19:04 19:04 19:04 WBC 12.4 H RBC 5.10 Hgb 15.3 Hct 46.0 MCV 90.0 MCH 30.0 MCHC 33.4 RDW 14.8 H Plt Count 252 MPV 9.1 Absolute Neuts (auto) 7.50 H Absolute Lymphs (auto) 2.50 Absolute Monos (auto) 1.00 H Absolute Eos (auto) 1.20 H Absolute Basos (auto) 0.10 Neutrophils % 60.9 Lymphocytes % 20.3 Monocytes % 8.4 Eosinophils % 9.7 H Basophils % 0.7 PT 9.9 INR 1.00 PTT (SP) 24.3 Sodium 135 Potassium 4.3 Chloride 100 L Carbon Dioxide 25 Anion Gap 14.3 BUN 17 Creatinine 0.73 BUN/Creatinine Ratio 23.3 H Random Glucose 362 H Serum Osmolality 286.3 Calcium 9.1 Total Bilirubin 0.4 AST 25 ALT 34 Alkaline Phosphatase 96 Creatine Kinase 109 CK-MB (CK-2) 3.3 CK-MB (CK-2) % Not Reportable Troponin I < 0.02 B-Natriuretic Peptide 27.1 Serum Total Protein 7.4 Albumin 3.8 Globulin 3.6 H Albumin/Globulin Ratio 1.1 Departure - Departure Clinical Impression: Bleeding from mouth Disposition: Discharge to Home or Self Care Condition: Fair Departure Forms: ED Discharge - Pt. Copy, Patient Portal Self Enrollment Diet: regular diet Activity: increase activity as tolerated Referrals: UNKNOWN,PHYSICIAN [Primary Care Provider] - 1-2 Weeks Home Medications: Ambulatory Orders Amitriptyline HCl [Elavil] 100 mg PO BEDTIME 06/17/14 Citalopram Hydrobromide [Celexa] 40 mg PO QAM 06/17/14 Furosemide Tab [Lasix Tab] 40 mg PO DAILY PRN 06/17/14 Lisinopril 40 mg PO DAILY 06/17/14 Metoprolol Succinate [Toprol Xl] 100 mg PO BEDTIME 06/17/14 Insulin Lispro [Humalog] See Protocol SC AC 09/01/16 Insulin Glargine [Toujeo Solostar] 85 unit SC DAILY 08/29/17 Ondansetron [Zofran Odt] 4 mg PO Q4H PRN #30 tab 04/12/18 Atorvastatin Calcium [Lipitor] 20 mg PO DAILY 07/29/19 Clonidine HCl 0.1 mg PO PRN PRN 07/29/19 Glipizide [Glucotrol Xl] 10 mg PO DAILY 07/29/19 Temazepam 30 mg PO BEDTIME 07/29/19 fentaNYL PATCH 25 MCG/HR [Duragesic Patch 25 MCG/HR] 1 applic TOP Q3D 07/29/19 Mesalamine W/ Cleanser [Rowasa] 4 gm MS BEDTIME #1 kit 08/10/19 Vancomycin HCl [Vancocin HCl] 125 mg PO Q6H #36 cap 08/13/19 Additional Instructions: The patient is a 59-year-old male presented emergency room secondary to spitting up some blood for the last couple of hours. I believe this is most likely coming from the area behind 1 of his bottom incisors. It is largely hemostatic at this point. See no evidence of any other source of current bleeding. X-ray is reassuring. Hemoglobin levels, platelet levels and coags are all within normal limits. Vital signs are stable. It is possible that he may have had a little bit of bleeding from a site where the endotracheal tube rubbed from his surgery earlier in the week. He appears to be doing well at this point. Obviously if there is any significant worsening then he needs to return here. Keep follow-up with a dentist. ER warnings are given.
[2019-12-22 20:09] VITALS: O2SAT 98
[2019-12-22 20:11] VITALS: BP 149/102; TEMP 98.8
== END 2019-12-22 20:08 | disposition home or self-care (01) ==
LOC: ER 18:18
DX: R04.2 Hemoptysis (principal); I10 Essential (primary) hypertension; Z79.4 Long term (current) use of insulin; F17.200 Nicotine dependence, unspecified, uncomplicated
CPT/HCPCS: 71045; 80053; 82550; 82553; 83880; 84484; 85025; 85610; 85730; 93005; J1815

== ENCOUNTER → 2020-04-08 | Outpatient (CLI) | payer MEDICARE, MEDICAID | END | disposition home or self-care (01) | LOC: LAB.O 13:09 | DX: I10 Essential (primary) hypertension (principal); E11.69 Type 2 diabetes mellitus with other specified complication ==

== ENCOUNTER → 2020-07-15 | Outpatient (CLI) | payer MEDICARE, MEDICAID | LOC: LAB.O 07:51 | PROVIDERS: ATTEND Internal Medicine | DX: I10 Essential (primary) hypertension (principal); E78.5 Hyperlipidemia, unspecified; E11.69 Type 2 diabetes mellitus with other specified complication ==

== ENCOUNTER 2020-07-31 14:03 | Emergency (ER) | payer MEDICARE, OTHER ==
[2020-07-31] MEDS ORDERED: ONDANSETRON ODT 8 MG TAB SL ONE (14:18)
[2020-07-31] MEDS ORDERED: SODIUM CHLORIDE 0.9% 1000ML 1,000 ML IVS ONE (15:22)
--- NOTE | 2020-07-31 15:25 | RAD ---
EXAM DESCRIPTION: Abdomen Series CLINICAL HISTORY: nvd COMPARISON: August 11, 2019 TECHNIQUE: X-ray 4 views chest and abdomen with upright chest and supine and upright abdomen FINDINGS: The lungs are clear. Bowel gas pattern is unremarkable. No mass or calculus observed. IMPRESSION: 1. Normal Electronically signed by: Napoleon Clark MD 07/31/2020 3:23 PM [facility]
--- NOTE | 2020-07-31 16:30 | CT ---
EXAM DESCRIPTION: CT ABDOMEN AND PELVIS WITH CONTRAST CLINICAL HISTORY: abd pain, hx diverticuli and chronic pancreatitis COMPARISON: CT abdomen pelvis 08/10/2019 TECHNIQUE: CT of the abdomen and pelvis are performed after IV contrast administration. No oral contrast was given. Multiplanar reconstructions were obtained. FINDINGS: The lung bases are unremarkable. The liver is normal in size and contour. Mild decreased hepatic parenchymal attenuation suggesting mild hepatic steatosis. The gallbladder is surgically absent. No biliary ductal dilatation. The spleen is normal in size. Mild nodular thickening of the left adrenal gland is unchanged. The kidneys are normal in size and contour. No hydronephrosis or nephrolithiasis. Sequela from chronic pancreatitis with a few scattered pancreatic parenchymal calcification. There is subtle haziness/indistinction at the pancreatic head and neck in the surrounding fat concerning for mild acute interstitial edematous pancreatitis. No peripancreatic fluid collection or abscess. Mild colonic diverticulosis without acute diverticulitis. No focal bowel wall thickening or bowel obstruction. The appendix is surgically absent. No anterior abdominal wall or inguinal hernia. There is no lymphadenopathy, inflammation, or free fluid observed. No free air. The bladder is unremarkable. The prostate is mildly enlarged with small prostatic calcifications.. Multilevel degenerative changes of the spine with lumbosacral spine hardware fixation. No acute osseous abnormality. Right gluteal region neurostimulator device with partially visualized dorsal epidural leads. IMPRESSION: 1. Mild acute on chronic pancreatitis with subtle inflammation at the pancreatic head. No peripancreatic fluid collection or abscess. 2. Cholecystectomy, appendectomy. 3. Mild prostatomegaly. This exam was performed according to our departmental dose-optimization program, which includes automated exposure control, adjustment of the mA and/or kV according to patient size and/or use of iterative reconstruction technique. Electronically signed by: Klaus Gilbert DO 07/31/2020 4:28 PM [facility] [place]
[2020-07-31] MEDS ORDERED: CIPROFLOXACIN 500 MG TAB PO ONE (16:37)
[2020-07-31] MEDS ORDERED: metroNIDAZOLE 500 MG TAB PO ONE (16:37)
--- NOTE | 2020-07-31 16:40 | ED.PDOC ---
History of Present Illness - General Chief Complaint: GI Problem Stated Complaint: N/V, constipation Time Seen by Provider: 07/31/20 14:08 Source: patient Exam Limitations: no limitations - History of Present Illness Initial Comments: Patient is a 60-year-old male presented emergency room secondary to abdominal discomfort for the last 3 or 4 days. He has had some nauseous but no real vomiting. He had one episode of diarrhea today but otherwise seems to have been constipated for the last 3 or 4 days. The patient does have a history of chronic recurrent pancreatitis. No fever. He also has a history of diverticulitis intermittently. He does report some diffuse abdominal discomfort but seems to localize more to the left lower quadrant. No true rebound. No bruising. No palpable mass. Timing/Duration: other - 4 days Severity: moderate Improving Factors: nothing Worsening Factors: eating Associated Symptoms: loss of appetite, malaise, nausea/vomiting Allergies/Adverse Reactions: Allergies Morphine Allergy (Verified 07/31/20 14:34) Other Makes him "delerious, nuts" Home Medications: Ambulatory Orders Amitriptyline HCl [Elavil] 100 mg PO BEDTIME 06/17/14 Citalopram Hydrobromide [Celexa] 40 mg PO QAM 06/17/14 Furosemide Tab [Lasix Tab] 40 mg PO DAILY PRN 06/17/14 Lisinopril 40 mg PO DAILY 06/17/14 Metoprolol Succinate [Toprol Xl] 100 mg PO BEDTIME 06/17/14 Insulin Lispro [Humalog] See Protocol SC AC 09/01/16 Insulin Glargine [Toujeo Solostar] 85 unit SC DAILY 08/29/17 Ondansetron [Zofran Odt] 4 mg PO Q4H PRN #30 tab 04/12/18 Atorvastatin Calcium [Lipitor] 20 mg PO DAILY 07/29/19 Clonidine HCl 0.1 mg PO PRN PRN 07/29/19 Glipizide [Glucotrol Xl] 10 mg PO DAILY 07/29/19 Temazepam 30 mg PO BEDTIME 07/29/19 fentaNYL PATCH 25 MCG/HR [Duragesic Patch 25 MCG/HR] 1 applic TOP Q3D 07/29/19 Mesalamine W/ Cleanser [Rowasa] 4 gm CA BEDTIME #1 kit 08/10/19 Vancomycin HCl [Vancocin HCl] 125 mg PO Q6H #36 cap 08/13/19 Ciprofloxacin [Cipro] 500 mg PO BID #14 tab 07/31/20 Famotidine [Pepcid Tab] 20 mg PO BID #30 tab 07/31/20 Metronidazole 500 mg PO TID #20 tab 07/31/20 Ondansetron Odt [Zofran ODT] 4 mg PO Q8HR PRN #5 tab 07/31/20 Review of Systems - Review of Systems Constitutional: States: malaise EENTM: States: no symptoms reported Respiratory: States: no symptoms reported Cardiology: States: no symptoms reported Gastrointestinal/Abdominal: States: abdominal pain, constipation, diarrhea, nausea Genitourinary: States: no symptoms reported Musculoskeletal: States: no symptoms reported Skin: States: no symptoms reported Neurological: States: no symptoms reported Endocrine: States: no symptoms reported All other Systems: No Change from Baseline Past Medical History (General) - Patient Medical History Hx Seizures: No Hx Stroke: No Hx Dementia: No Hx Asthma: No Hx of COPD: No Hx Cardiac Disorders: Yes Hx Congestive Heart Failure: No Hx Pacemaker: No Hx Hypertension: Yes Hx Thyroid Disease: No Hx Diabetes: Yes Hx Gastroesophageal Reflux: Yes Hx Renal Disease: No Hx Cancer: No Hx of HIV: No Hx Hepatitis C: Yes Hx MRSA: No MRSA Source:: Wound Surgical History: appendectomy, cholecystectomy - Vaccination History Hx Tetanus, Diphtheria Vaccination: Yes Hx Influenza Vaccination: Yes Hx Pneumococcal Vaccination: Yes - Social History Hx Tobacco Use: Yes Hx Chewing Tobacco Use: No Hx Alcohol Use: No Hx Substance Use: No Hx Substance Use Treatment: No Hx Depression: No Hx Physical Abuse: No Hx Emotional Abuse: No Hx Suspected Abuse: No - Female History Patient is a Female of Child Bearing Age (10 -59 yrs old): No Patient : No Family Medical History - Family History Mother Family History: Unknown Living Status: Age at (years of age): 47 Hx Family Hypertension: Yes Hx Cardiac Disease: Yes Physical Exam - Physical Exam General Appearance: Alert, No apparent distress Eye Exam: bilateral normal Ears, Nose, Throat: hearing grossly normal, normal ENT inspection, normal pharynx Neck: non-tender, supple Respiratory: lungs clear, normal breath sounds, no respiratory distress, no accessory muscle use Cardiovascular/Chest: normal peripheral pulses, regular rate, rhythm, no edema Peripheral Pulses: radial,right: 2+, radial,left: 2+ Gastrointestinal/Abdominal: soft, other - See history of present illness Rectal Exam: deferred Back Exam: no CVA tenderness, no vertebral tenderness Extremity: non-tender, normal inspection, no pedal edema, normal capillary refill Neurologic: sql consultant II-XII nml as tested, alert, normal mood/affect, oriented x 3 Skin Exam: normal color Comments: Vital Signs - 24 hr 07/31/20 07/31/20 14:05 14:17 Temperature 97.7 F Pulse Rate [ 117 H 117 H Pulse ox] Respiratory 18 18 Rate Blood Pressure 108/84 [L arm] O2 Sat by Pulse 98 Oximetry Progress - Progress Progress: 07/31/20 16:40 The patient is a 60-year-old male presenting with abdominal discomfort for the last 3 to 4 days. Source of this is not entirely certain as the patient does have a history of chronic pancreatitis. CT scan shows what could possibly be a mild acute pancreatitis with mild inflammation within the pancreatic head, however amylase and lipase are near normal. Certainly an elevation of these is not required for chronic pancreatitis. More towards the side of possible early diverticulitis would be that the discomfort seems to be more towards the left lower quadrant and that the patient has a mild to moderate leukocytosis. As we cannot tell definitively which is a source on this patient at this point in time he is essentially going to be treated for both. He is going to be placed on metronidazole and ciprofloxacin for the next 7 days. He is going to be placed on Pepcid twice daily for the next few weeks and he needs to maintain a liquid diet for the next couple of days, and then a bland diet with small frequent meals after that. No evidence of constipation on the CT scan. He tested negative for C. difficile. He will also be written for Zofran for as needed use to control any nausea or vomiting. Obviously if the patient is worsening then a repeat evaluation would be warranted. He has received a liter of IV fluids as well as some nausea medications here and does seem to be feeling a little better. Otherwise he should follow back up with his primary care doctor early next week for repeat evaluation. ER warnings are given. alek peguero [phone] - Results/Orders Results/Orders: CT scan abdomen pelvis shows possibly some mild haziness surrounding the pancreatic head that could be consistent with a mild acute pancreatitis. No evidence of acute diverticulitis on the CT scan. Chronic findings otherwise. See report for details. Laboratory Tests 07/31/20 07/31/20 07/31/20 14:40 14:40 14:40 WBC 14.2 H RBC 5.46 Hgb 17.1 Hct 50.1 MCV 91.7 MCH 31.2 H MCHC 34.0 RDW 13.3 Plt Count 209 MPV 9.9 Absolute Neuts (auto) 9.70 H Absolute Lymphs (auto) 2.80 Absolute Monos (auto) 1.20 H Absolute Eos (auto) 0.40 Absolute Basos (auto) 0.10 Neutrophils % 68.3 Lymphocytes % 20.0 Monocytes % 8.2 Eosinophils % 2.9 Basophils % 0.6 Sodium 132 L Potassium 4.2 Chloride 94 L Carbon Dioxide 23 Anion Gap 19.2 H BUN 21 H Creatinine 0.98 BUN/Creatinine Ratio 21.4 H Random Glucose 237 H Serum Osmolality 275.2 Lactic Acid 2.7 H* Calcium 9.2 Magnesium 1.8 Total Bilirubin 0.4 AST 21 ALT 27 Alkaline Phosphatase 106 Creatine Kinase 105 CK-MB (CK-2) 3.7 CK-MB (CK-2) % Not Reportable Troponin I < 0.02 Serum Total Protein 7.4 Albumin 3.9 Globulin 3.5 Albumin/Globulin Ratio 1.1 Amylase 61 Lipase 76 H TSH 2.83 Departure - Departure Clinical Impression: Mild dehydration Abdominal pain Qualifiers: Abdominal location: left lower quadrant Qualified Code(s): R10.32 - Left lower quadrant pain Disposition: Discharge to Home or Self Care Condition: Fair Departure Forms: ED Discharge - Pt. Copy, Patient Portal Self Enrollment Diet: bland diet, diabetic diet Activity: increase activity as tolerated Referrals: BOOGIE FELIX [Primary Care Provider] - 1-2 Weeks Prescriptions: Ondansetron Odt [Zofran ODT] 4 mg PO Q8HR PRN #5 tab PRN Reason: Nausea--Moderate Ciprofloxacin [Cipro] 500 mg PO BID #14 tab Metronidazole 500 mg PO TID #20 tab Famotidine [Pepcid Tab] 20 mg PO BID #30 tab Home Medications: Ambulatory Orders Amitriptyline HCl [Elavil] 100 mg PO BEDTIME 06/17/14 Citalopram Hydrobromide [Celexa] 40 mg PO QAM 06/17/14 Furosemide Tab [Lasix Tab] 40 mg PO DAILY PRN 06/17/14 Lisinopril 40 mg PO DAILY 06/17/14 Metoprolol Succinate [Toprol Xl] 100 mg PO BEDTIME 06/17/14 Insulin Lispro [Humalog] See Protocol SC AC 09/01/16 Insulin Glargine [Toujeo Solostar] 85 unit SC DAILY 08/29/17 Ondansetron [Zofran Odt] 4 mg PO Q4H PRN #30 tab 04/12/18 Atorvastatin Calcium [Lipitor] 20 mg PO DAILY 07/29/19 Clonidine HCl 0.1 mg PO PRN PRN 07/29/19 Glipizide [Glucotrol Xl] 10 mg PO DAILY 07/29/19 Temazepam 30 mg PO BEDTIME 07/29/19 fentaNYL PATCH 25 MCG/HR [Duragesic Patch 25 MCG/HR] 1 applic TOP Q3D 07/29/19 Mesalamine W/ Cleanser [Rowasa] 4 gm CA BEDTIME #1 kit 08/10/19 Vancomycin HCl [Vancocin HCl] 125 mg PO Q6H #36 cap 08/13/19 Ciprofloxacin [Cipro] 500 mg PO BID #14 tab 07/31/20 Famotidine [Pepcid Tab] 20 mg PO BID #30 tab 07/31/20 Metronidazole 500 mg PO TID #20 tab 07/31/20 Ondansetron Odt [Zofran ODT] 4 mg PO Q8HR PRN #5 tab 07/31/20 Additional Instructions: The patient is a 60-year-old male presenting with abdominal discomfort for the last 3 to 4 days. Source of this is not entirely certain as the patient does have a history of chronic pancreatitis. CT scan shows what could possibly be a mild acute pancreatitis with mild inflammation within the pancreatic head, however amylase and lipase are near normal. Certainly an elevation of these is not required for chronic pancreatitis. More towards the side of possible early diverticulitis would be that the discomfort seems to be more towards the left lower quadrant and that the patient has a mild to moderate leukocytosis. As we cannot tell definitively which is a source on this patient at this point in time he is essentially going to be treated for both. He is going to be placed on metronidazole and ciprofloxacin for the next 7 days. He is going to be placed on Pepcid twice daily for the next few weeks and he needs to maintain a liquid diet for the next couple of days, and then a bland diet with small frequent meals after that. No evidence of constipation on the CT scan. He tested negative for C. difficile. He will also be written for Zofran for as needed use to control any nausea or vomiting. Obviously if the patient is worsening then a repeat evaluation would be warranted. He has received a liter of IV fluids as well as some nausea medications here and does seem to be feeling a little better. Otherwise he should follow back up with his primary care doctor early next week for repeat evaluation. ER warnings are given.
[2020-07-31 17:39] VITALS: BP 143/96; TEMP 97.5; O2SAT 94
== END 2020-07-31 17:18 | disposition home or self-care (01) ==
LOC: ER 14:03
DX: E86.0 Dehydration (principal); R10.32 Left lower quadrant pain; R19.7 Diarrhea, unspecified; R11.0 Nausea; K21.9 Gastro-esophageal reflux disease without esophagitis; E11.9 Type 2 diabetes mellitus without complications; I10 Essential (primary) hypertension; I51.9 Heart disease, unspecified; Z86.19 Personal history of other infectious and parasitic diseases; Z87.891 Personal history of nicotine dependence; Z90.49 Acquired absence of other specified parts of digestive tract; Z79.4 Long term (current) use of insulin; Z79.899 Other long term (current) drug therapy; Z88.5 Allergy status to narcotic agent
CPT/HCPCS: 36415; 74019; 74177; 80053; 82150; 82550; 82553; 83605; 83690; 83735; 84443; 84484; 85025; 87040; 87324; 87449; J7030

== ENCOUNTER 2020-08-05 04:39 | Emergency (ER) | payer MEDICARE, MEDICAID ==
[2020-08-05] MEDS ORDERED: ALUM & MAG HYDROX-SIMETHICONE 30 ML, LIDOCAINE VISCOUS 2% 15 ML PO ONE ×2 (04:58)
[2020-08-05] MEDS ORDERED: ONDANSETRON ODT 8 MG TAB SL ONE (04:58)
[2020-08-05] MEDS ORDERED: SODIUM CHLORIDE 0.9% 1000ML 1,000 ML IVS ONE (04:58)
--- NOTE | 2020-08-05 05:06 | ED.PDOC ---
History of Present Illness - General Chief Complaint: Abdominal Pain Stated Complaint: abd pain Time Seen by Provider: 08/05/20 04:51 Source: patient Exam Limitations: no limitations - History of Present Illness Initial Comments: The patient is a 60-year-old male presenting to the emergency room secondary to persistence of abdominal pain that I saw him for for 5 days ago. He has continued to have nausea but no vomiting. Minimal stool output. No fever. He is been drinking but not really eating. He has a history of chronic recurrent pancreatitis as well as recurrent diverticulitis presenting a complicating picture. CT scan performed at last visit showed possibly a very mild early pancreatitis and amylase and lipase were not significantly elevated. Decision was made to somewhat cover for both entities with oral antibiotics as well as a liquid diet at the time and nausea control. Patient reports that his symptoms have not gotten any better but in fact have gotten more significant. Still no vomiting but he does still have nausea. Exam shows a moderately distended abdomen, obesity with tenderness to the epigastric area as well as to the left side of the abdomen. No definite palpable mass. There is some mild guarding toward the left lateral abdomen. Difficult to tell if this is voluntary. No other new symptoms. Timing/Duration: 1 week Severity: moderate Improving Factors: nothing Worsening Factors: eating Associated Symptoms: loss of appetite, malaise, nausea/vomiting Allergies/Adverse Reactions: Allergies Morphine Allergy (Verified 08/05/20 04:48) Other Makes him "delerious, nuts" Home Medications: Ambulatory Orders Amitriptyline HCl [Elavil] 100 mg PO BEDTIME 06/17/14 Citalopram Hydrobromide [Celexa] 40 mg PO QAM 06/17/14 Furosemide Tab [Lasix Tab] 40 mg PO DAILY PRN 06/17/14 Lisinopril 40 mg PO DAILY 06/17/14 Metoprolol Succinate [Toprol Xl] 100 mg PO BEDTIME 06/17/14 Insulin Lispro [Humalog] See Protocol SC AC 09/01/16 Insulin Glargine [Toujeo Solostar] 85 unit SC DAILY 08/29/17 Ondansetron [Zofran Odt] 4 mg PO Q4H PRN #30 tab 04/12/18 Atorvastatin Calcium [Lipitor] 20 mg PO DAILY 07/29/19 Clonidine HCl 0.1 mg PO PRN PRN 07/29/19 Glipizide [Glucotrol Xl] 10 mg PO DAILY 07/29/19 Temazepam 30 mg PO BEDTIME 07/29/19 Vancomycin HCl [Vancocin HCl] 125 mg PO Q6H #36 cap 08/13/19 Ciprofloxacin [Cipro] 500 mg PO BID #14 tab 07/31/20 Famotidine [Pepcid Tab] 20 mg PO BID #30 tab 07/31/20 Metronidazole 500 mg PO TID #20 tab 07/31/20 Review of Systems - Review of Systems Constitutional: States: no symptoms reported EENTM: States: no symptoms reported Respiratory: States: no symptoms reported Cardiology: States: no symptoms reported Gastrointestinal/Abdominal: States: see HPI, abdominal pain, constipation, nausea Genitourinary: States: no symptoms reported Musculoskeletal: States: no symptoms reported Skin: States: no symptoms reported Neurological: States: no symptoms reported Endocrine: States: no symptoms reported All other Systems: No Change from Baseline Past Medical History (General) - Patient Medical History Hx Seizures: No Hx Stroke: No Hx Dementia: No Hx Asthma: No Hx of COPD: No Hx Cardiac Disorders: Yes Hx Congestive Heart Failure: No Hx Pacemaker: No Hx Hypertension: Yes Hx Thyroid Disease: No Hx Diabetes: Yes - insulin dependent Hx Gastroesophageal Reflux: Yes Hx Renal Disease: No Hx Cancer: No Hx of HIV: No Hx Hepatitis C: Yes Hx MRSA: No MRSA Source:: Wound Surgical History: appendectomy, cholecystectomy, other - Vaccination History Hx Tetanus, Diphtheria Vaccination: Yes Hx Influenza Vaccination: No Hx Pneumococcal Vaccination: No Immunizations Up to Date: Yes - Social History Hx Tobacco Use: Yes Hx Chewing Tobacco Use: No Hx Alcohol Use: No Hx Substance Use: No Hx Substance Use Treatment: No Hx Depression: No Feels Threatened In Home Enviroment: No Feels Threatened In a Relationship: No Hx Physical Abuse: No Hx Emotional Abuse: No Hx Suspected Abuse: No - Activities of Daily Living Hospice Agency (if applicable):: None - Female History Patient is a Female of Child Bearing Age (10 -59 yrs old): No Patient : No - Triage Comment ED Triage Comment: pt states he was seen in er aprox 10 days ago for same pain Family Medical History - Family History Mother Family History: Unknown Living Status: Age at (years of age): 47 Hx Family Hypertension: Yes Hx Cardiac Disease: Yes Physical Exam - Physical Exam General Appearance: Alert, Obese, Other - unComfortable Eye Exam: bilateral normal Ears, Nose, Throat: hearing grossly normal, normal pharynx Neck: non-tender, full range of motion Respiratory: lungs clear, normal breath sounds, no respiratory distress, no accessory muscle use Cardiovascular/Chest: normal peripheral pulses, regular rate, rhythm - Borderline tachycardia Peripheral Pulses: radial,right: 2+, radial,left: 2+ Gastrointestinal/Abdominal: distended, other - See history of present illness Rectal Exam: deferred Back Exam: no CVA tenderness, no vertebral tenderness Extremity: normal range of motion, no calf tenderness, normal capillary refill, pedal edema - Possibly mild trace edema Neurologic: aquaculture program director II-XII nml as tested, alert, normal mood/affect, oriented x 3 Skin Exam: normal color Progress - Progress Progress: 08/05/20 06:48 The patient is a 60-year-old male presented emergency room secondary to persistent abdominal pain. The patient has had no bowel movements for last 5 days. There was initially concern for diverticulitis versus pancreatitis at his previous visit. Laboratory work looks more reassuring today than it did at his last visit. CT scan today shows no evidence of diverticulitis and what is most likely scarring of the pancreas. There is however significant stool buildup. This may indeed be the cause of his abdominal discomfort. He was given a dose of lactulose here and is going to be given a gallon of GoLYTELY to take today. Hopefully this will get him cleaned out and make him feel better. He will be written for a very short prescription for tramadol for as needed use. I do want him to follow back up with his primary care doctor in a couple of days for repeat evaluation. I do want him to complete the oral antibiotics. alek peguero 747 - Results/Orders Results/Orders: Laboratory Tests 08/05/20 08/05/20 08/05/20 05:16 05:16 05:16 WBC 12.2 H RBC 5.53 Hgb 17.3 Hct 50.6 MCV 91.5 MCH 31.2 H MCHC 34.2 RDW 13.7 Plt Count 175 MPV 9.9 Absolute Neuts (auto) 8.10 H Absolute Lymphs (auto) 2.50 Absolute Monos (auto) 1.10 H Absolute Eos (auto) 0.40 Absolute Basos (auto) 0.10 Neutrophils % 66.3 Lymphocytes % 20.3 Monocytes % 9.2 H Eosinophils % 3.3 Basophils % 0.9 PT INR PTT (SP) Sodium 134 L Potassium 4.2 Chloride 97 L Carbon Dioxide 26 Anion Gap 15.2 BUN 15 Creatinine 0.84 BUN/Creatinine Ratio 17.9 Random Glucose 255 H Serum Osmolality 277.8 Lactic Acid 1.2 Calcium 9.0 Magnesium 1.9 Total Bilirubin 0.4 AST 16 ALT 27 Alkaline Phosphatase 113 Creatine Kinase 78 CK-MB (CK-2) 4.0 CK-MB (CK-2) % Not Reportable Troponin I < 0.02 Serum Total Protein 7.3 Albumin 3.9 Globulin 3.4 Albumin/Globulin Ratio 1.1 Amylase 55 Lipase 83 H Urine Color Urine Appearance Urine pH Ur Specific [place] Urine Protein Urine Glucose (UA) Urine Ketones Urine Blood Urine Nitrite Urine Bilirubin Urine Urobilinogen Ur Leukocyte Esterase Urine RBC Urine WBC Ur Epithelial Cells Urine Bacteria 08/05/20 08/05/20 05:16 05:25 WBC RBC Hgb Hct MCV MCH MCHC RDW Plt Count MPV Absolute Neuts (auto) Absolute Lymphs (auto) Absolute Monos (auto) Absolute Eos (auto) Absolute Basos (auto) Neutrophils % Lymphocytes % Monocytes % Eosinophils % Basophils % PT 10.3 INR 1.04 PTT (SP) 26.1 Sodium Potassium Chloride Carbon Dioxide Anion Gap BUN Creatinine BUN/Creatinine Ratio Random Glucose Serum Osmolality Lactic Acid Calcium Magnesium Total Bilirubin AST ALT Alkaline Phosphatase Creatine Kinase CK-MB (CK-2) CK-MB (CK-2) % Troponin I Serum Total Protein Albumin Globulin Albumin/Globulin Ratio Amylase Lipase Urine Color Yellow Urine Appearance Clear Urine pH 6.5 Ur Specific [place] 1.025 Urine Protein 30 Urine Glucose (UA) 250 H Urine Ketones Negative Urine Blood Trace-intact H Urine Nitrite Negative Urine Bilirubin Negative Urine Urobilinogen 0.2 Ur Leukocyte Esterase Negative Urine RBC 0 Urine WBC 0 Ur Epithelial Cells [address] scan of abdomen pelvis with IV contrast repeated shows stable edema versus scarring around the unit the process of the pancreas. Fatty liver. Stool throughout the large intestine. On my review of the CT scan there is a significant amount of stool in the large intestine. Departure - Departure Clinical Impression: Abdominal pain Qualifiers: Abdominal location: left upper quadrant Qualified Code(s): R10.12 - Left upper quadrant pain Constipation Qualifiers: Constipation type: slow transit constipation Qualified Code(s): K59.01 - Slow transit constipation Disposition: Discharge to Home or Self Care Condition: Fair Departure Forms: ED Discharge - Pt. Copy, Patient Portal Self Enrollment Instructions: DI for Abdominal Pain-Adult, Constipation, Adult (DC) Diet: diabetic diet - High-fiber Activity: increase activity as tolerated Referrals: BOOGIE FELIX [Primary Care Provider] - 1-2 Weeks Home Medications: Ambulatory Orders Amitriptyline HCl [Elavil] 100 mg PO BEDTIME 06/17/14 Citalopram Hydrobromide [Celexa] 40 mg PO QAM 06/17/14 Furosemide Tab [Lasix Tab] 40 mg PO DAILY PRN 06/17/14 Lisinopril 40 mg PO DAILY 06/17/14 Metoprolol Succinate [Toprol Xl] 100 mg PO BEDTIME 06/17/14 Insulin Lispro [Humalog] See Protocol SC AC 09/01/16 Insulin Glargine [Toujeo Solostar] 85 unit SC DAILY 08/29/17 Ondansetron [Zofran Odt] 4 mg PO Q4H PRN #30 tab 04/12/18 Atorvastatin Calcium [Lipitor] 20 mg PO DAILY 07/29/19 Clonidine HCl 0.1 mg PO PRN PRN 07/29/19 Glipizide [Glucotrol Xl] 10 mg PO DAILY 07/29/19 Temazepam 30 mg PO BEDTIME 07/29/19 Vancomycin HCl [Vancocin HCl] 125 mg PO Q6H #36 cap 08/13/19 Ciprofloxacin [Cipro] 500 mg PO BID #14 tab 07/31/20 Famotidine [Pepcid Tab] 20 mg PO BID #30 tab 07/31/20 Metronidazole 500 mg PO TID #20 tab 07/31/20 Additional Instructions: The patient is a 60-year-old male presented emergency room secondary to persistent abdominal pain. The patient has had no bowel movements for last 5 days. There was initially concern for diverticulitis versus pancreatitis at his previous visit. Laboratory work looks more reassuring today than it did at his last visit. CT scan today shows no evidence of diverticulitis and what is most likely scarring of the pancreas. There is however significant stool buildup. This may indeed be the cause of his abdominal discomfort. He was given a dose of lactulose here and is going to be given a gallon of GoLYTELY to take today. Hopefully this will get him cleaned out and make him feel better. He will be written for a very short prescription for tramadol for as needed use. I do want him to follow back up with his primary care doctor in a couple of days for repeat evaluation. I do want him to complete the oral antibiotics.
[2020-08-05] MEDS ORDERED: HYDROmorphone HCL INJ 2 MG/ML VIAL IV ONE (05:47)
--- NOTE | 2020-08-05 06:00 | RAD ---
EXAM DESCRIPTION: Abdomen Flat Upright CLINICAL HISTORY: abd pain COMPARISON: 07/31/2020 FINDINGS: Bowel: Dilated loops of small bowel. Air identified in the colon. Peritoneum: No free intraperitoneal air identified. Solid organs: No definite organomegaly. Calcifications: No abnormal calcifications. Bones: Degenerative change of the spine. Postoperative change of the thoracolumbar spine. Other:Dorsal generator leads. Visualized lung bases are clear. IMPRESSION: 1. Dilated loops of small bowel with air identified in the colon. These findings could be seen with partial small bowel obstruction or ileus. Electronically signed by: Bora Curry 08/05/2020 5:59 AM [facility]
--- NOTE | 2020-08-05 06:38 | CT ---
EXAM DESCRIPTION: Abdomen/Pelvis w/Contrast 08/05/2020 6:34 AM [employer] CLINICAL HISTORY: 60 years, Male, persistent epigastric and left abd pain COMPARISON: CT abdomen and pelvis with contrast July 31, 2020 TECHNIQUE: Following the administration of intravenous contrast, volumetric CT acquisition was performed through the abdomen and pelvis. Images in the axial and coronal planes were presented for interpretation This exam was performed according to our departmental dose-optimization program, which includes automated exposure control, adjustment of the mA and/or kV according to patient size and/or use of iterative reconstruction technique. FINDINGS: The visualized portions of the lung bases are clear. The cardiomediastinal structures are within normal limits. Within the upper abdomen, the liver and spleen are normal in size and morphology. There is diffuse fatty infiltration of the liver which is otherwise unremarkable. The gallbladder is surgically absent. The intra/extrahepatic biliary tree is normal in appearance. The adrenal glands are normal in appearance. There are stable scattered calcifications throughout the pancreas. There is fat induration surrounding the uncinate process best seen on axial image 30 is stable compared to the prior exam. The kidneys are normal in size bilaterally. The ureters are normal in course and caliber. The stomach and small intestines are within normal limits without evidence of bowel dilation or wall thickening. The appendix is surgically absent The colon is stool filled and unremarkable. Within the pelvis, the bladder and rectum are normal. The prostate is age-appropriate There are no pathologically enlarged inguinal, retroperitoneal, portacaval, or mesenteric lymph nodes. The soft tissue structures of the abdominal wall are normal. The visualized osseous structures are within normal limits for the patient's age. There is a spinal stimulator device in the soft tissues of the right gluteal subcutaneous fat with the stimulator lead entering the spinal canal at the T9/T10 level. There are multilevel degenerative changes again noted throughout the thoracolumbar spine with disc space narrowing and endplate sclerosis. There is surgical hardware at the T12/L1 and L1/L2 levels. The abdominal aorta and its primary branches are normal in course and caliber. Limited evaluation of the venous structures demonstrates no gross abnormalities. IMPRESSION: 1. Stable edema/scarring surrounding the uncinate process of the pancreas, recommend correlation with laboratory values as described may represent chronic scarring or acute inflammation. 2. Status post cholecystectomy and appendectomy. 3. Fatty liver. 4. Stable surgical and degenerative changes of the lumbar spine with spinal stimulator device in place. Electronically signed by: Temo Garcia MD 08/05/2020 6:37 AM [facility]
[2020-08-05] MEDS ORDERED: LACTULOSE SYRUP 20 GM/30 ML UD PO ONE (06:44)
[2020-08-05 07:04] VITALS: BP 150/110; TEMP 97.5; O2SAT 97
== END 2020-08-05 06:55 | disposition home or self-care (01) ==
LOC: ER 04:39
DX: R10.12 Left upper quadrant pain (principal); K59.01 Slow transit constipation; R11.0 Nausea; K76.0 Fatty (change of) liver, not elsewhere classified; E66.9 Obesity, unspecified; I51.9 Heart disease, unspecified; I10 Essential (primary) hypertension; E11.9 Type 2 diabetes mellitus without complications; K21.9 Gastro-esophageal reflux disease without esophagitis; Z79.4 Long term (current) use of insulin; Z86.19 Personal history of other infectious and parasitic diseases; Z90.49 Acquired absence of other specified parts of digestive tract; Z87.891 Personal history of nicotine dependence; Z79.899 Other long term (current) drug therapy; Z88.5 Allergy status to narcotic agent; Z68.31 Body mass index [BMI] 31.0-31.9, adult
CPT/HCPCS: 74019; 74177; 80053; 81001; 82150; 82550; 82553; 83605; 83690; 83735; 84484; 85025; 85610; 85730; 87040; J1170; J7030